=== PATIENT | female | born 1970 | race Caucasian/White ===

== ENCOUNTER → 2018-09-30 13:35 | Outpatient (CLI) | payer MEDICAID, SELFPAY ==
--- NOTE | 2018-09-30 13:42 | XR_ITS ---
XR elbow RT min 3V HISTORY: ITS.REASON: ELBOW PAIN ORDERING PHYSICIAN: Shayy Feliciano PATIENT AGE: 47 years COMPARISON: None FINDINGS: BONY STRUCTURES: No fracture or dislocation. No lytic or blastic change. Normal mineralization. SOFT TISSUES: Unremarkable. No radio opaque foreign bodies. No displaced fat pad. JOINT SPACE: Well-preserved. No significant arthritic changes evident. IMPRESSION: Negative elbow.
--- NOTE | 2018-09-30 13:42 | XR_ITS ---
EXAM: XR thoracic spine 3V HISTORY: ITS.REASON: MIDLINE THORACIC PAIN Comparison: None FINDINGS: There is mild degenerative disc disease in the mid and lower thoracic spine with endplate osteophytes no fracture or dislocation. No lytic or blastic change. IMPRESSION: Thoracic spondylosis with degenerative disc disease and osteophytosis
--- NOTE | 2018-09-30 13:42 | XR_ITS ---
EXAM: XR cervical spine 5V HISTORY: ITS.REASON: NECK PAIN ORDERING PHYSICIAN: Shayy Feliciano PATIENT AGE: 47 years COMPARISON: None FINDINGS: Normal alignment. No fracture or dislocation. No lytic or blastic change. No significant degenerative change. The disc spaces are preserved. IMPRESSION: No acute finding
[2018-09-30 14:31] LABS: Basophils % 0.3 % (0.1-2.0); Eosinophils # 0.3 K/mm3 (0.0-0.4); Eosinophils % 2.7 % (0.1-12.0); Hematocrit 38.7 % (37.0-47.0); Hemoglobin 11.6 g/dL (12.2-16.2); Lymphocytes # 2.2 K/mm3 (0.7-4.5); Lymphocytes % 23.6 % (10-50); Mean Corpuscular HGB Conc 29.9 g/dL (31.8-35.4); Mean Corpuscular Hemoglobin 27.4 pg (27.0-31.2); Mean Corpuscular Volume 91.5 fl (81-99); Mean Platelet Volume 7.2 fl (7.4-10.4); Monocytes # 0.5 K/mm3 (0.1-1.0); Monocytes % 5.3 % (1.7-9.3); Neutrophils # 6.4 K/mm3 (1.8-7.8); Neutrophils % 68.1 % (37.0-80.0); Platelet Count 319 K/mm3 (142-424); Red Blood Count 4.24 M/mm3 (4.20-5.40); Red Cell Distribution Width 15.1 % (11.5-17.5); White Blood Count 9.4 K/mm3 (4.8-10.8)
[2018-09-30 15:41] LABS: Erythrocyte Sedimentation Rate 60 mm/hr (0-20)
[2018-09-30 16:58] LABS: Alanine Aminotransferase 21 U/L (12-78); Albumin Level 3.2 gm/dL (3.4-5.0); Alkaline Phosphatase 85 U/L (46-116); Aspartate Amino Transferase 15 U/L (15-37); Bilirubin,Direct 0.1 mg/dL (0.0-0.2); Bilirubin,Indirect 0.1 mg/dL (0.0-0.9); Bilirubin,Total 0.2 mg/dL (0.2-1.0); Creatinine,Serum 0.58 mg/dL (0.55-1.02); Estimated Glomerular Filt Rate 111 ml/min (>60); GFR (African American) 134 ML/MIN (>60); Total Protein,Serum 6.9 gm/dL (6.4-8.2)
== END ==
PROVIDERS: Internal Medicine Rheumatology; PCP Family Medicine; Visit Provider Nurse Practitioner Family
DX: M54.2 Cervicalgia (principal); M54.6 Pain in thoracic spine; M25.521 Pain in right elbow; Z79.899 Other long term (current) drug therapy
CPT/HCPCS: 36415; 72050; 72072; 73080; 80076; 82565; 85025; 85651; 86140

== ENCOUNTER → 2018-10-16 14:43 | Outpatient (CLI) | payer MEDICAID, SELFPAY ==
--- NOTE | 2018-10-16 14:45 | MR_ITS ---
MR thoracic spine wo con HISTORY: A back pain when walking or standing. Relief when sitting. Symptoms XYRS. No trauma. ITS.REASON: ACUTE BILATERAL THORACIC BACK PAIN ORDERING PHYSICIAN: Shayy Feliciano PATIENT AGE: 47 years Comparison: X-RAY 09-30-18 TECHNIQUE: Standard multiplanar multiecho sequences are performed without contrast. 3-D MIP and myelographic images are also rendered and reviewed FINDINGS: Normal alignment. No fracture or dislocation is evident. No acute wedge compression fracture. There is mild multilevel degenerative disc disease from T4 to T12. Anterior osteophytes are present from T4 to T9. T6-T7: There is a small central disc protrusion/herniation very slightly eccentric toward the right causing mild compression upon the anterior right aspect of the spinal cord. There is degenerative disc disease at this level. T7-T8: There is a small central disc protrusion with degenerative disc disease. IMPRESSION: 1. Thoracic spondylosis with degenerative disc disease in the mid and lower thoracic spine 2. Small central disc protrusion slightly eccentric toward the right at T6-T7 causing mild anterior compression upon the cord. 3. Small central disc protrusion at T7-T8 with minimal anterior compression upon the cord
== END ==
PROVIDERS: PCP Nurse Practitioner Family; Visit Provider Nurse Practitioner Family
DX: M54.6 Pain in thoracic spine (principal); M05.79 Rheumatoid arthritis with rheumatoid factor of multiple sites without organ or systems involvement
CPT/HCPCS: 72146

== ENCOUNTER → 2018-12-10 11:31 | Outpatient (POV) | payer MEDICAID, SELFPAY ==
[2018-12-10 11:35] VITALS: BP 128/79; PULSE 88; RESP 18; O2SAT 98
--- NOTE | 2018-12-10 12:22 | HMH.PMCON ---
Assessment and Plan (1) Spinal stenosis, lumbar region with neurogenic claudication Current visit: Yes Status: Chronic Category: Medical Code(s): M48.062 - Spinal stenosis, lumbar region with neurogenic claudication (2) Back pain Current visit: Yes Status: Chronic Category: Medical Code(s): M54.9 - Dorsalgia, unspecified (3) Degenerative joint disease (DJD) of lumbar spine Current visit: Yes Status: Chronic Category: Medical Code(s): M47.816 - Spondylosis without myelopathy or radiculopathy, lumbar region - Assessment and plan all Dx Assessment and Plan for all problems:: We will schedule her for an L4-L5 lumbar epidural steroid injection. Patient and I also briefly discussed a vertical flex procedure. Patient continuing her home stretching regimen. Patient is on anti-inflammatories at this time. I will follow-up with her after injection and reassess her symptoms at that time. Dr. Jefferson has reviewed this note and agrees with this plan of care. This note was dictated using voice recognition software and may contain errors or omissions HPI - Data of Consult Consult date: 12/10/18 Requesting Physician: Mitali Nathan APRN Primary Care Provider: Shayy Feliciano APRN - Consult Narrative Reason for consult: Back pain, leg pain History of present illness: Ms. Saleh is a 48 year old female is in today for consultation in regards to her back pain and leg pain. Patient has been seen by neurosurgery and was deemed not a surgical candidate however she has a lot of back pain especially when she is standing and walking. Patient states that she has difficulty walking for long periods and has to sit down. Patient's MRI does show spinal stenosis along with degenerative disc disease and bulging disc. She denies numbness and tingling in her extremities. Patient has tried and failed [place], Cymbalta, Soma, clonazepam, Motrin, naproxen. Patient has done physical therapy with a report of minimal relief. Patient has not tried any injective therapy. She is not on any anticoagulation therapy. She is diabetic however she is not insulin dependent CC: Mitali Nathan APRN [facility] History I have reviewed the patient's past medical history: Yes Medical History: Reports:: Diabetes Mellitus Type 2, Hypertension Other Surgeries: Yes: Cholecystectomy, - *Social History Smoking Status: Never smoker Alcohol Intake: never Occupational Status: other Housing: house Household Members: spouse Travel in the last 8 weeks: None - Psychiatric History Expresses thoughts of harming self/others: None Suicide Plan Description: No Plan *Family Hx:: Unable to obtain Review of Systems - Review of Systems ROS General: no recent weight change, no fever, no sleep disturbances Respiratory: no cough, no shortness of air, no recurring pulmonary infections Cardiovascular/Peripheral Vascular: No chest pain, No palpitations, no edema, no shortness of breath. Gastrointestinal: no incontinence, normal bowel movements reported Genitourinary: no incontinence Musculoskeletal: Back pain, leg pain Psychiatric: normal mood/ affect Neurological: [denies weakness in extremities], [denies balance issues] Meds Home Medications Medication Instructions Recorded Confirmed Type Gabapentin [Gabapentin 300mg Cap] 200 mg PO QID 12/10/18 12/10/18 History Hydrocod/Acet 5/325 mg [[place] 1 each PO Q6 12/10/18 12/10/18 History 5/325mg tablet] Loratadine [Claritin 10mg Tablet] 10 mg PO DAILY 12/10/18 12/10/18 History Metformin HCl 500 mg PO BID 12/10/18 12/10/18 History Naproxen Sodium 220 mg PO DAILY 12/10/18 12/10/18 History Omeprazole [Omeprazole 20mg 40 mg PO HS 12/10/18 12/10/18 History Capsule] Ropinirole HCl 1 mg PO HS 12/10/18 12/10/18 History Allergies Allergy/AdvReac Type Severity Reaction Status Date / Time From [facility] (FOOD/DRUG) Allergy Unknown ABD Uncoded 11/06/17 14:53 CRAMPS/VOMI
--- NOTE | 2018-12-10 12:25 | P.CONS_ITS ---
Assessment and Plan (1) Spinal stenosis, lumbar region with neurogenic claudication Current visit: Yes Status: Chronic Category: Medical Code(s): M48.062 - Spinal stenosis, lumbar region with neurogenic claudication (2) Back pain Current visit: Yes Status: Chronic Category: Medical Code(s): M54.9 - Dorsalgia, unspecified (3) Degenerative joint disease (DJD) of lumbar spine Current visit: Yes Status: Chronic Category: Medical Code(s): M47.816 - Spondylosis without myelopathy or radiculopathy, lumbar region - Assessment and plan all Dx Assessment and Plan for all problems:: We will schedule her for an L4-L5 lumbar epidural steroid injection. Patient and I also briefly discussed a vertical flex procedure. Patient continuing her home stretching regimen. Patient is on anti-inflammatories at this time. I will follow-up with her after injection and reassess her symptoms at that time. Dr. Jefferson has reviewed this note and agrees with this plan of care. This note was dictated using voice recognition software and may contain errors or omissions HPI - Data of Consult Consult date: 12/10/18 Requesting Physician: Mitali Nathan APRN Primary Care Provider: Shayy Feliciano APRN - Consult Narrative Reason for consult: Back pain, leg pain History of present illness: Ms. Saleh is a 48 year old female is in today for consultation in regards to her back pain and leg pain. Patient has been seen by neurosurgery and was deemed not a surgical candidate however she has a lot of back pain especially when she is standing and walking. Patient states that she has difficulty walking for long periods and has to sit down. Patient's MRI does show spinal stenosis along with degenerative disc disease and bulging disc. She denies numbness and tingling in her extremities. Patient has tried and failed [place], Cymbalta, Soma, clonazepam, Motrin, naproxen. Patient has done physical therapy with a report of minimal relief. Patient has not tried any injective therapy. She is not on any anticoagulation therapy. She is diabetic however she is not insulin dependent CC: Mitali Nathan APRN [facility] History I have reviewed the patient's past medical history: Yes Medical History: Reports:: Diabetes Mellitus Type 2, Hypertension Other Surgeries: Yes: Cholecystectomy, - *Social History Smoking Status: Never smoker Alcohol Intake: never Occupational Status: other Housing: house Household Members: spouse Travel in the last 8 weeks: None - Psychiatric History Expresses thoughts of harming self/others: None Suicide Plan Description: No Plan *Family Hx:: Unable to obtain Review of Systems - Review of Systems ROS General: no recent weight change, no fever, no sleep disturbances Respiratory: no cough, no shortness of air, no recurring pulmonary infections Cardiovascular/Peripheral Vascular: No chest pain, No palpitations, no edema, no shortness of breath. Gastrointestinal: no incontinence, normal bowel movements reported Genitourinary: no incontinence Musculoskeletal: Back pain, leg pain Psychiatric: normal mood/ affect Neurological: [denies weakness in extremities], [denies balance issues] Meds Home Medications Medication Instructions Recorded Confirmed Type Gabapentin [Gabapentin 300mg Cap] 200 mg PO QID 12/10/18 12/10/18 History Hydrocod/Acet 5/325 mg [[place] 1 each PO Q6 12/10/18 12/10/18 History 5/325mg tablet] Loratadine [
== END ==
PROVIDERS: PCP Nurse Practitioner Family; Visit Provider Clinical Nurse Specialist Family Health
DX: M48.062 Spinal stenosis, lumbar region with neurogenic claudication (principal); M47.816 Spondylosis without myelopathy or radiculopathy, lumbar region
CPT/HCPCS: 99202

== ENCOUNTER 2018-12-24 19:57 | Observation (INO) ==
[2018-12-24 20:14] LABS: Basophils # 0.1 K/mm3 (0-0.2); Basophils % 0.3 % (0.1-2.0); Eosinophils # 0.2 K/mm3 (0.0-0.4); Eosinophils % 1.5 % (0.1-12.0); Hematocrit 45.5 % (37.0-47.0); Hemoglobin 13.8 g/dL (12.2-16.2); Lymphocytes # 2.5 K/mm3 (0.7-4.5); Lymphocytes % 16.1 % (10-50); Mean Corpuscular HGB Conc 30.4 g/dL (31.8-35.4); Mean Corpuscular Hemoglobin 27.7 pg (27.0-31.2); Mean Platelet Volume 7.1 fl (7.4-10.4); Monocytes # 0.8 K/mm3 (0.1-1.0); Monocytes % 4.9 % (1.7-9.3); Neutrophils # 11.7 K/mm3 (1.8-7.8); Neutrophils % 77.1 % (37.0-80.0); Platelet Count 358 K/mm3 (142-424); Red Blood Count 4.99 M/mm3 (4.20-5.40); Red Cell Distribution Width 14.5 % (11.5-17.5); White Blood Count 15.2 K/mm3 (4.8-10.8)
[2018-12-24 20:35] LABS: Blood Urea Nitrogen 17 mg/dL (7-18); Calcium 9.3 mg/dL (8.5-10.1); Carbon Dioxide 31 mmol/L (21.0-32.0); Chloride 100 mmol/L (98-107); Glucose 124 mg/dL (74-106); Sodium 139 mmol/L (136-145)
[2018-12-24 21:06] LABS: Eosinophils % 1 % (0-3); Lymphocytes % 13 % (10-50); Monocytes % 2 % (2-9); Neutrophils % 83 % (42-76); Total Cells Counted 100
[2018-12-24 21:07] LABS: Anisocytosis 1+
--- NOTE | 2018-12-24 23:03 | Emergency Department Note ---
ED Disposition Clinical Impression: Tobacco use Chest pain Qualifiers: Chest pain type: precordial pain Qualified Code(s): R07.2 - Precordial pain Obesity Qualifiers: Obesity type: due to excess calories Obesity classification: adult class 3 (BMI >= 40) Serious obesity comorbidity presence: with serious comorbidity Body mass index: BMI 50.0-59.9 Qualified Code(s): E66.01 - Morbid (severe) obesity due to excess calories; Z68.43 - Body mass index (BMI) 50-59.9, adult Diabetes Qualifiers: Diabetes mellitus type: type 2 Diabetes mellitus fdc insulin use: without bed bug exterminator use Diabetes mellitus complication status: with unspecified complications Qualified Code(s): E11.8 - Type 2 diabetes mellitus with unspecified complications Disposition: Admitted as Observation Condition on Discharge: Serious Referrals: Shayy Feliciano APRN [Primary Care Provider] - - Critical Care Critical Care Time: No Attestation: On 12/24/18, the high probability of a clinically significant, sudden or life threatening deterioration of the following system(s) required my full and direct attention, intervention and personal management. The time I documented below is in addition to time spent performing reported procedures but includes the following listed in this critical care notation. Medical Decision Making - Medical Records Medical records reviewed: Yes: I reviewed the patient's medical records. - Varun Inquiry Pt receiving controlled substance: No Vital Signs: 12/24/18 19:57 12/24/18 20:25 Temperature 98.2 F Temperature Source Oral Pulse Rate [Right Brachial] 97 H 98 H Respiratory Rate 18 18 Blood Pressure [Right Arm] 156/87 H 140/83 Blood Pressure Mean [Right Arm] 110 102 Blood Pressure Source [Right Arm] Automatic Cuff Automatic Cuff Blood Pressure Position [Right Arm] Sitting Sitting 02 Sat by Pulse Oximetry 97 97 Oxygen Delivery Method Room Air Room Air - Lab Data Lab results reviewed: Yes: I reviewed the patient's lab results. Lab Results 12/24/18 20:00: WBC 15.2 H, RBC 4.99, Hgb 13.8, Hct 45.5, MCV 91.0, MCH 27.7, MCHC 30.4 L, RDW 14.5, Plt Count 358, MPV 7.1 L, Neut % (Auto) 77.1, Lymph % (Auto) 16.1, Lane % (Auto) 4.9, Eos % (Auto) 1.5, Baso % (Auto) 0.3, Neut # (Auto) 11.7 H, Lymph # (Auto) 2.5, Lane # (Auto) 0.8, Eos # (Auto) 0.2, Baso # (Auto) 0.1, Total Counted 100, Neutrophils % (Manual) 83 H, Lymphocytes % (Manual) 13, Monocytes % (Manual) 2, Eosinophils % (Manual) 1, Basophils % (Manual) 1.0, Platelet Estimate Normal, Anisocytosis 1+ 12/24/18 20:00: Sodium 139, Potassium 4.0, Chloride 100, Carbon Dioxide 31, Anion Gap 12.0, BUN 17, Creatinine 0.74, Estimated Creat Clear 73, Estimated GFR 83, Est GFR ( Amer) 101, Glucose 124 H, Calcium 9.3, Troponin I < 0.02 Result diagrams: 12/24/18 20:00 12/24/18 20:00 - Radiology Data #1 Image(s): Chest Image Reviewed: Yes I reviewed the patient's radiology image Preliminary Findings: Normal/NAD - ECG Data Tracing #1 Normal Sinus Rhythm: Yes Ischemic changes: non-specific ST-T wave changes - Physician Consults Physician Consulted: diana Reason -: Admission Chest Pain HPI - General Chief Complaint: Chest Pain Stated Complaint: chest pain Time Seen by Provider: 12/24/18 22:59 Mode of Arrival: Ambulatory Source of Information: Patient, Spouse, Medical Record Limitations: No Limitations Description of Symptoms (Recalled from ER Triage Doc. by RN): chest pain intermittently. shortness of air - History of Present Illness HPI narrative: wf who had episode of chest pain 2 days ago - lasted 5 min and then had several episodes which were sharp and pressure like today - pt with tob use and diabetes MD complaint: chest pain indicative of cardiac Onset (ago): day(s) Duration: now resolved Activity at onset: during rest Pain location: substernal Severity: moderate Risk Factors for CAD: Hypercholesterolemia, Family Hx of CAD, Diabetes, Smoking Treatments prior to or on arrival for Cardiac Chest Pain: none - RUDI Score for Non-Stemi Age of Patient: 40-49 years old Heart Rate: 90-109 bpm Systolic Blood Pressure: 140-159 mmHg Serum Creatinine: 0.40-0.79 mg/dl CHF [place] Class: I-No CHF Other Risk Factors: None Non-Stemi Risk Score: 68 - Related Data On Oral Contraceptives: No Home Medications Medication Instructions Recorded Confirmed Gabapentin [Gabapentin 300mg Cap] 200 mg PO QID 12/10/18 12/10/18 Hydrocod/Acet 5/325 mg [[place] 1 each PO Q6 12/10/18 12/10/18 5/325mg tablet] Loratadine [Claritin 10mg Tablet] 10 mg PO DAILY 12/10/18 12/10/18 Metformin HCl 500 mg PO BID 12/10/18 12/10/18 Naproxen Sodium 220 mg PO DAILY 12/10/18 12/10/18 Omeprazole [Omeprazole 20mg 40 mg PO HS 12/10/18 12/10/18 Capsule] Ropinirole HCl 1 mg PO HS 12/10/18 12/10/18 Duloxetine HCl [Cymbalta] 60 mg PO BID 12/20/18 12/20/18 Enalapril Maleate 20 mg PO DAILY 12/20/18 12/20/18 Allergies Allergy/AdvReac Type Severity Reaction Status Date / Time From [facility] (FOOD/DRUG) Allergy Unknown ABD Uncoded 11/06/17 14:53 CRAMPS/VOMITING From [facility] (FOOD/DRUG) Allergy Unknown ABD Uncoded 11/06/17 14:53 CRAMPS/VOMITING H History - Hepatitis A Screen Drug use history?: No High risk sexual behaviors?: No History of sexually transmitted infection?: No Currently employed?: No Childcare worker?: No Do you have indoor plumbing?: Yes Do you have electricity?: Yes Attestation statement:: This patient has been screened for Hepatitis A risk factors. I have reviewed the patient's past medical history: Yes Medical History: Reports:: Diabetes Mellitus Type 2, Hypertension Other Surgeries: Yes: Cholecystectomy, - Social History Educational Level: Completed High School Smoking Status: Current every day smoker Tobacco Type: cigarettes Alcohol Intake: never Occupational Status: other Housing: house Household Members: spouse - Psychiatric History Expresses thoughts of harming self/others: None Suicide Plan Description: No Plan Family Hx:: Unable to obtain ROS Obtained: Yes All systems reviewed & no additional complaints - Constitutional Constitutional: Denies fever(s) - Eyes Eyes: Denies change in vision - ENT Ears, Nose, Mouth, and Throat: Denies sore throat - Cardiovascular Cardiovascular: Reports chest pain, Reports chest pain at rest, Denies radiating jaw, neck or arm pain - Respiratory Respiratory: No cough - Gastrointestinal Gastrointestingal: Denies: abdominal pain - Genitourinary Female Genitourinary: Denies flank pain, Denies pelvic pain - Musculoskeletal Musculoskeletal: Denies neck pain - Integumentary/Breasts Skin/Breast: Denies rash - Neurologic Neurologic: Denies headache(s), Denies seizure-like activity Physical Exam - General General appearance: alert, obese - Head Head exam: normocephalic - Eye Eye exam: Present: PERRL, EOMI. Absent: scleral icterus - ENT ENT exam: Present: mucous membranes dry - Neck Neck exam: Present: trachea midline - Respiratory Respiratory exam: Absent: respiratory distress - Cardiovascular Cardiovascular exam: Present: regular rate, systolic murmur. Absent: rubs, gallop, clicks - Abdominal Exam Abdominal exam: Present: soft - Extremities Exam Extremities exam: Present: full ROM - Neurological Exam Neurological exam: Present: alert, oriented X3, CN II-XII intact - Psychiatric Psychiatric exam: Present: normal affect - Skin Skin exam: Absent: rash
[2018-12-25 05:08] LABS: Basophils % 0.1 % (0.1-2.0); Eosinophils # 0.1 K/mm3 (0.0-0.4); Eosinophils % 0.9 % (0.1-12.0); Hematocrit 38.4 % (37.0-47.0); Lymphocytes # 2.6 K/mm3 (0.7-4.5); Lymphocytes % 17.4 % (10-50); Mean Corpuscular HGB Conc 30.8 g/dL (31.8-35.4); Mean Corpuscular Hemoglobin 28.2 pg (27.0-31.2); Mean Corpuscular Volume 91.6 fl (81-99); Mean Platelet Volume 8.3 fl (7.4-10.4); Monocytes # 0.6 K/mm3 (0.1-1.0); Monocytes % 4.3 % (1.7-9.3); Neutrophils # 11.4 K/mm3 (1.8-7.8); Neutrophils % 77.2 % (37.0-80.0); Platelet Count 309 K/mm3 (142-424); Red Blood Count 4.19 M/mm3 (4.20-5.40); Red Cell Distribution Width 14.6 % (11.5-17.5); White Blood Count 14.7 K/mm3 (4.8-10.8)
[2018-12-25 05:15] LABS: Anion Gap 12.7 mEq/L (5-15); Calcium 8.5 mg/dL (8.5-10.1); Chol/HDL Ratio 3.2 (1-3.5); Potassium 3.7 mmoL/L (3.5-5.1)
[2018-12-25 05:30] LABS: Hemoglobin 11.9 g/dL (12.2-16.2)
--- NOTE | 2018-12-25 07:21 | History & Physical Report ---
*Admission Date: 12/25/18 *Chief complaint: Chest pain *History of present illness: 48 female with diabetes and [id number] history of smoking per to the emergency department with episodes of a dull chest pain retrosternally with slight radiation to the left and into the back lasting 1 minute that have been present for the last 2 weeks. Episodes generally will occur at rest. She will have associated nausea and shortness of breath. She denies diaphoresis. Patient has not had any other cardiac workup patient is morbidly obese and claims a history of rheumatoid arthritis [facility] History I have reviewed the patient's past medical history: Yes Medical History: Reports:: Diabetes Mellitus Type 2 Denies:: Cancer, MRSA Have you ever received a pneumonia vaccine?: No Have you received a flu vaccine this season?: No Other Medical History: Reports: Anemia, Arthritis Comment:: Morbid obesity, cigarette smoker Other Surgeries: Yes: Cholecystectomy, , EGD, Other (Csection) Amputation: No Fractures: No - *Social History Educational Level: Attended College Smoking Status: Current every day smoker Tobacco Type: cigarettes # Packs/Day (cigarettes): 1 #Yrs smoked (if former smoker): 30 Alcohol Intake: never Occupational Status: other Housing: house Household Members: spouse Travel in the last 8 weeks: None - Psychiatric History Expresses thoughts of harming self/others: None Suicide Plan Description: No Plan *Family Hx:: Unable to obtain, Anemia, Asthma, Bleeding Disorder, Cancer, Coronary Artery Disease, Hyperlipidemia, Hypertension, Kidney Disease, Thyroid Disorder Review of Systems - Review of Systems Review of systems:: pertinent systems reviewed and negative unless documented below - Constitutional Denies body ache(s), Denies chills, Denies fever(s) - *Cardiovascular Reports chest pain, Reports chest pain at rest, Reports shortness of breath, Denies irregular heart rhythm - *Respiratory Denies change in phlegm color, Denies chest congestion, Denies cough - *Gastrointestinal Denies abdominal pain, Denies belching, Denies bloating - *Neurologic Denies headache(s), Denies seizure-like activity Meds Home Medications Medication Instructions Recorded Confirmed Type Gabapentin [Gabapentin 300mg Cap] 200 mg PO HS 12/10/18 12/25/18 History Hydrocod/Acet 5/325 mg [[place] 1 each PO Q6 12/10/18 12/25/18 History 5/325mg tablet] Loratadine [Claritin 10mg Tablet] 10 mg PO DAILY 12/10/18 12/25/18 History Metformin HCl 500 mg PO BID 12/10/18 12/25/18 History Naproxen Sodium 220 mg PO DAILY PRN 12/10/18 12/25/18 History Omeprazole [Omeprazole 20mg 20 mg PO DAILY 12/10/18 12/25/18 History Capsule] Ropinirole HCl 1 mg PO BID 12/10/18 12/25/18 History Duloxetine HCl [Cymbalta] 60 mg PO BID 12/20/18 12/25/18 History Enalapril/Hydrochlorothiazide 10 - 25 mg PO DAILY 12/25/18 12/25/18 History [Enalapril-Hctz 10-25 mg Tablet] Tofacitinib Citrate [Xeljanz] 100 mg PO DAILY 12/25/18 12/25/18 History Allergies Allergy/AdvReac Type Severity Reaction Status Date / Time From [facility] (FOOD/DRUG) Allergy Unknown ABD Uncoded 11/06/17 14:53 CRAMPS/VOMITING From [facility] (FOOD/DRUG) Allergy Unknown ABD Uncoded 11/06/17 14:53 CRAMPS/VOMITING Exam Vital signs and Labs for Last 24 Hours: Temp Pulse Resp BP Pulse Ox 98.0 F 87 16 166/89 H 92 L 12/25/18 04:12 12/25/18 04:12 12/25/18 04:12 12/25/18 04:12 12/25/18 04:12 Laboratory Results - last 24 hr 12/24/18 20:00: WBC 15.2 H, RBC 4.99, Hgb 13.8, Hct 45.5, MCV 91.0, MCH 27.7, MCHC 30.4 L, RDW 14.5, Plt Count 358, MPV 7.1 L, Neut % (Auto) 77.1, Lymph % (Auto) 16.1, [place] % (Auto) 4.9, Eos % (Auto) 1.5, Baso % (Auto) 0.3, Neut # (Auto) 11.7 H, Lymph # (Auto) 2.5, [place] # (Auto) 0.8, Eos # (Auto) 0.2, Baso # (Auto) 0.1, Total Counted 100, Neutrophils % (Manual) 83 H, Lymphocytes % (Manual) 13, Monocytes % (Manual) 2, Eosinophils % (Manual) 1, Basophils % (Manual) 1.0, Platelet Estimate Normal, Anisocytosis 1+ 12/24/18 20:00: Sodium 139, Potassium 4.0, Chloride 100, Carbon Dioxide 31, Anion Gap 12.0, BUN 17, Creatinine 0.74, Estimated Creat Clear 73, Estimated GFR 83, Est GFR ( Amer) 101, Glucose 124 H, Calcium 9.3, Troponin I < 0.02 12/25/18 01:55: Troponin I < 0.02 12/25/18 04:50: Troponin I < 0.02 12/25/18 04:50: WBC 14.7 H, RBC 4.19 L, Hgb 11.9 L D, Hct 38.4, MCV 91.6, MCH 28.2, MCHC 30.8 L, RDW 14.6, Plt Count 309, MPV 8.3, Neut % (Auto) 77.2, Lymph % (Auto) 17.4, [place] % (Auto) 4.3, Eos % (Auto) 0.9, Baso % (Auto) 0.1, Neut # (Auto) 11.4 H, Lymph # (Auto) 2.6, [place] # (Auto) 0.6, Eos # (Auto) 0.1, Baso # (Auto) 0.0 12/25/18 04:50: Sodium 139, Potassium 3.7, Chloride 102, Carbon Dioxide 28, Anion Gap 12.7, BUN 15, Creatinine 0.58 D, Estimated Creat Clear 93, Estimated GFR 110, Est GFR ( Amer) 134 D, Glucose 166 H D, Calcium 8.5, Magnesium 1.8, Triglycerides 76, Cholesterol 133 L, LDL Cholesterol 76, VLDL Cholesterol 15, HDL Cholesterol 42, Cholesterol/HDL Ratio 3.2 12/25/18 05:51: POC Glucose 126 H I & O for Last 24 hours: Intake & Output 12/22/18 12/23/18 12/24/18 12/25/18 11:59 11:59 11:59 11:59 Intake Total 198 / 198 Balance 198 / 198 Weight 299 lb Narrative: Patient is awake and alert and does not appear to be in any ENT exam is grossly normal. Neck has no carotid bruits. Lungs are clear to auscultation. Heart has a regular rhythm. Abdomen is obese, soft, nontender, nondistended. Patient has active range of motion in all extremities. Neurologically there is no deficit Assessment and Plan (1) Chest pain Current visit: Yes Status: Acute Qualifiers: Chest pain type: precordial pain Qualified Code(s): R07.2 - Precordial pain Category: Medical Code(s): R07.9 - Chest pain, unspecified Echocardiogram and Lexiscan stress test morning. (2) Rheumatoid arthritis Current visit: Yes Status: Acute Category: Medical Code(s): M06.9 - Rheumatoid arthritis, unspecified (3) Diabetes Current visit: Yes Status: Acute Qualifiers: Diabetes mellitus type: type 2 Diabetes mellitus food service substitute insulin use: without food service substitute use Diabetes mellitus complication status: with unspecified complications Qualified Code(s): E11.8 - Type 2 diabetes mellitus with unspecified complications Category: Medical Code(s): E11.9 - Type 2 diabetes mellitus without complications (4) Obesity Current visit: Yes Status: Acute Qualifiers: Obesity type: due to excess calories Obesity classification: adult class 3 (BMI >= 40) Serious obesity comorbidity presence: with serious comorbidity Body mass index: BMI 50.0-59.9 Qualified Code(s): E66.01 - Morbid (severe) obesity due to excess calories; Z68.43 - Body mass index (BMI) 50-59.9, adult Category: Medical Code(s): E66.9 - Obesity, unspecified (5) Tobacco use Current visit: Yes Status: Acute Category: Medical Code(s): Z72.0 - Tobacco use
--- NOTE | 2018-12-25 13:57 | Pharmacy Consult Notes ---
[facility] Pharmacy VTE Monitoring - Patient Demographics Admission date: 12/25/18 Report Date: 12/25/18 Time: 13:57 Allergies/Adverse Reactions: Patient Allergies From BANANAS (FOOD/DRUG) Allergy (Unknown, Uncoded 11/06/17 14:53) ABD CRAMPS/VOMITING From EGGS (FOOD/DRUG) Allergy (Unknown, Uncoded 11/06/17 14:53) ABD CRAMPS/VOMITING Height: 1.57 cm Weight: 135.624 kg Patient Problems: Current Active Problems Chest pain (Acute) Tobacco use (Acute) Obesity (Acute) Diabetes (Acute) Rheumatoid arthritis (Acute) - VTE Risk Labs: VTE Related Lab Results Hgb 11.9 g/dL (12.2-16.2) L D 12/25/18 04:50 Hct 38.4 % (37.0-47.0) 12/25/18 04:50 Plt Count 309 K/mm3 (142-424) 12/25/18 04:50 BUN 15 mg/dL (7-18) 12/25/18 04:50 Creatinine 0.58 mg/dL (0.55-1.02) D 12/25/18 04:50 Estimated Creat Clear 93 mL/min (50-200) 12/25/18 04:50 Was VTE Risk Assessment Performed: Yes VTE Risk Level: Low Risk Clinical Trial Participant: No - Prophylaxis VTE Prophylaxis Ordered?: Yes Types of VTE Prophylaxis: TEDS Knee High
--- NOTE | 2018-12-25 16:07 | Discharge Summary ---
General - General Admission date:: 12/25/18 Discharge date: 12/25/18 HPI HPI: 48 female with diabetes and [id number] history of smoking per to the emergency department with episodes of a dull chest pain retrosternally with slight radiation to the left and into the back lasting 1 minute that have been present for the last 2 weeks. Episodes generally will occur at rest. She will have associated nausea and shortness of breath. She denies diaphoresis. Patient has not had any other cardiac workup patient is morbidly obese and claims a history of rheumatoid arthritis Hospital Course Hospital Course: Patient admitted for observation and further evaluation. Serial troponins were negative. Lexiscan stress test was performed today and was also with an EF of 62%, small fixed defect in the inferolateral apical region suggesting a small area of infarction, and small area of decreased activity in the anterolateral region which improves on the delayed images and may be due to a small area of ischemia. Patient is not currently experiencing chest pain, pressure, numbness/tingling in left arm or SOB. Last episode around 11am. She smokes 1PPD and verbalizes no desire to quit right now. Objective Vital signs: Temp Pulse Resp BP Pulse Ox 97.7 F 90 18 161/77 H 95 12/25/18 11:38 12/25/18 11:38 12/25/18 11:38 12/25/18 11:38 12/25/18 11:38 no acute distress, morbidly obese - *Routine Respiratory Exam Present: CTA bilaterally. Absent: accessory muscle use - *Routine Cardiovascular Exam Present: RRR, Normal S1, Normal S2. Absent: tachycardia, irregular rhythm - *Routine Abdominal Exam Present: soft, normoactive bowel sounds. Absent: tenderness, distended - *Routine Extremities Exam Absent: cyanosis, edema - *Routine Skin Exam Present: intact. Absent: cyanosis, pallor - *Routine Neurological Exam Present: alert, oriented X3 - Routine Psychiatric Exam Present: normal affect Results Labs on day of discharge: Labs from last 24 hours 12/25/18 12/25/18 12/25/18 11:31 05:51 04:50 WBC RBC Hgb Hct MCV MCH MCHC RDW Plt Count MPV Neut % (Auto) Lymph % (Auto) Republic % (Auto) Eos % (Auto) Baso % (Auto) Neut # (Auto) Lymph # (Auto) Republic # (Auto) Eos # (Auto) Baso # (Auto) Total Counted Neutrophils % (Manual) Lymphocytes % (Manual) Monocytes % (Manual) Eosinophils % (Manual) Basophils % (Manual) Platelet Estimate Anisocytosis Sodium 139 Potassium 3.7 Chloride 102 Carbon Dioxide 28 Anion Gap 12.7 BUN 15 Creatinine 0.58 D Estimated Creat Clear 93 Estimated GFR 110 Est GFR ( Amer) 134 D Glucose 166 H D POC Glucose 190 H 126 H Calcium 8.5 Magnesium 1.8 Troponin I Triglycerides 76 Cholesterol 133 L LDL Cholesterol 76 VLDL Cholesterol 15 HDL Cholesterol 42 Cholesterol/HDL Ratio 3.2 12/25/18 12/25/18 12/25/18 04:50 04:50 01:55 WBC 14.7 H RBC 4.19 L Hgb 11.9 L D Hct 38.4 MCV 91.6 MCH 28.2 MCHC 30.8 L RDW 14.6 Plt Count 309 MPV 8.3 Neut % (Auto) 77.2 Lymph % (Auto) 17.4 Republic % (Auto) 4.3 Eos % (Auto) 0.9 Baso % (Auto) 0.1 Neut # (Auto) 11.4 H Lymph # (Auto) 2.6 Republic # (Auto) 0.6 Eos # (Auto) 0.1 Baso # (Auto) 0.0 Total Counted Neutrophils % (Manual) Lymphocytes % (Manual) Monocytes % (Manual) Eosinophils % (Manual) Basophils % (Manual) Platelet Estimate Anisocytosis Sodium Potassium Chloride Carbon Dioxide Anion Gap BUN Creatinine Estimated Creat Clear Estimated GFR Est GFR ( Amer) Glucose POC Glucose Calcium Magnesium Troponin I < 0.02 < 0.02 Triglycerides Cholesterol LDL Cholesterol VLDL Cholesterol HDL Cholesterol Cholesterol/HDL Ratio 12/24/18 12/24/18 20:00 20:00 WBC 15.2 H RBC 4.99 Hgb 13.8 Hct 45.5 MCV 91.0 MCH 27.7 MCHC 30.4 L RDW 14.5 Plt Count 358 MPV 7.1 L Neut % (Auto) 77.1 Lymph % (Auto) 16.1 Republic % (Auto) 4.9 Eos % (Auto) 1.5 Baso % (Auto) 0.3 Neut # (Auto) 11.7 H Lymph # (Auto) 2.5 Republic # (Auto) 0.8 Eos # (Auto) 0.2 Baso # (Auto) 0.1 Total Counted 100 Neutrophils % (Manual) 83 H Lymphocytes % (Manual) 13 Monocytes % (Manual) 2 Eosinophils % (Manual) 1 Basophils % (Manual) 1.0 Platelet Estimate Normal Anisocytosis 1+ Sodium 139 Potassium 4.0 Chloride 100 Carbon Dioxide 31 Anion Gap 12.0 BUN 17 Creatinine 0.74 Estimated Creat Clear 73 Estimated GFR 83 Est GFR ( Amer) 101 Glucose 124 H POC Glucose Calcium 9.3 Magnesium Troponin I < 0.02 Triglycerides Cholesterol LDL Cholesterol VLDL Cholesterol HDL Cholesterol Cholesterol/HDL Ratio DS: Diagnosis - Discharge Diagnosis (1) Chest pain Status: Acute (2) Rheumatoid arthritis Status: Acute (3) Diabetes Status: Acute (4) Obesity Status: Acute (5) Tobacco use Status: Acute Discharge Plan - Patient Discharge Instructions ACTIVITY: Continue current activity DIET: cardiac Patient Instructions: DI for Chest Pain - Follow up Plan Follow up with: Jennifer Escobar APRN [Nurse Practitioner] - 12/27/18 9:30 am Disposition: Home, Self-Alf Medications: Home Medications Medication Instructions Recorded Confirmed Type Gabapentin [Gabapentin 300mg Cap] 200 mg PO HS 12/10/18 12/25/18 History Hydrocod/Acet 5/325 mg [[place] 1 each PO Q6HP PRN 12/10/18 12/25/18 History 5/325mg tablet] Loratadine [Claritin 10mg Tablet] 10 mg PO DAILY 12/10/18 12/25/18 History Metformin HCl 500 mg PO BID 12/10/18 12/25/18 History Naproxen Sodium 220 mg PO DAILY PRN 12/10/18 12/25/18 History Omeprazole [Omeprazole 20mg 20 mg PO DAILY 12/10/18 12/25/18 History Capsule] Ropinirole HCl 1 mg PO BID 12/10/18 12/25/18 History Duloxetine HCl [Cymbalta] 60 mg PO BID 12/20/18 12/25/18 History Aspirin [Aspirin 81mg EC Tab] 81 mg PO DAILY #30 tablet. 12/25/18 Rx Bisoprolol Fumarate [Bisoprolol 5 mg PO DAILY #30 tab 12/25/18 Rx 5mg Tablet] Clopidogrel Bisulfate [Plavix 75mg 75 mg PO DAILY #30 tab 12/25/18 Rx Tab] Enalapril/Hydrochlorothiazide 1 tab PO DAILY 12/25/18 12/25/18 History [Enalapril-Hctz 10-25 mg Tablet] Folic Acid [Folic Acid 1mg tablet] 1 mg PO BID 12/25/18 12/25/18 History metHOTREXate sodium [metHOTREXate 10 mg PO WEEKLY 12/25/18 12/25/18 History 2.5mg Tablet] Prescriptions/Medication Reconciliation: New Aspirin [Aspirin 81mg EC Tab] 81 mg PO DAILY #30 tablet. Bisoprolol Fumarate [Bisoprolol 5mg Tablet] 5 mg PO DAILY #30 tab Clopidogrel Bisulfate [Plavix 75mg Tab] 75 mg PO DAILY #30 tab Continue Ropinirole HCl 1 mg PO BID Naproxen Sodium 220 mg PO DAILY PRN PRN Reason: Inflammation Metformin HCl 500 mg PO BID Loratadine [Claritin 10mg Tablet] 10 mg PO DAILY Hydrocod/Acet 5/325 mg [[place] 5/325mg tablet] 1 each PO Q6HP PRN PRN Reason: pain Gabapentin [Gabapentin 300mg Cap] 200 mg PO HS metHOTREXate sodium [metHOTREXate 2.5mg Tablet] 10 mg PO WEEKLY Folic Acid [Folic Acid 1mg tablet] 1 mg PO BID Omeprazole [Omeprazole 20mg Capsule] 20 mg PO DAILY Duloxetine HCl [Cymbalta] 60 mg PO BID Enalapril/Hydrochlorothiazide [Enalapril-Hctz 10-25 mg Tablet] 1 tab PO DAILY
--- NOTE | 2018-12-26 11:41 | Cardiology Report ---
PROCEDURE: 2-D M-mode and color Doppler study INDICATIONS FOR THE TEST: Chest pain X COPD Heart Murmur Tobacco SmokingX Palpitations Fatigue Syncope Edema HypertensionXDiabetes MellitusX Rheumatic Fever SOBXDOE ObesityXHyperlipidemia Family History HD Additional History PATIENT INFORMATION HEIGHT: 62 WEIGHT:300 GENDER: Female B/P:156/87 2-D/M-MODE INTERPRETATION: 2-D MEASUREMENTS OBSERVED VALUES IN CMS Right Ventricular Dimension (RVDd) 3.1 Interventricular Septum (Thickness)(IVsd) .9 Left Ventricular Internal Dimensions(LVIDd) 5.1 Left Ventricular Posterior Wall (Thickness)(LVPWd) 1.0 Aortic Root 3.0 Aortic Cusp Separation 1.8 Left Atrial Dimensions (LAD) 3.2 2D 1. Left atrium is qualitatively mildly enlarged, left ventricle is normal size, mild concentric left ventricular hypertrophy, visually estimated ejection fraction 55% with no regional wall motion abnormality. 2. The right atrium and right ventricle are mildly enlarged with normal contractility. 3. The aortic valve is minimally thickened and fibrosed. 4. The mitral and tricuspid valve are grossly normal. 5. The pulmonic valve is poorly visualized. 6. No significant pericardial effusion noted. DOPPLER INTERROGATION: Doppler interrogation of the aortic, mitral and tricuspid valvular presence of mild mitral and tricuspid regurgitation, tricuspid regurgitation jet velocity is inadequate for calculation of the right ventricular systolic pressure, grade 1 diastolic dysfunction seen with tissue Doppler evidence of raised left atrial pressure. CONCLUSION: 1. Mildly enlarged left atrium, normal left ventricular size, mild concentric left ventricular hypertrophy, visually estimated ejection fraction 55% with no regional wall motion abnormality, grade 1 diastolic dysfunction seen with tissue Doppler evidence of raised left atrial pressure. 2. Mildly enlarged right ventricle with normal contractility. 3. Mild mitral and tricuspid regurgitation 4. No significant pericardial effusion noted.
== END 2018-12-25 17:00 | disposition home or self-care (01) ==
LOC: ICU 19:57 → ER 19:57 → ICU 12-25 00:09
PROVIDERS: ADMIT Internal Medicine Adolescent Medicine; ATTEND Family Medicine
CPT/HCPCS: 36415; 71010; 71045; 78452; 80048; 80061; 82962; 83735; 84484; 85007; 85025; 93005; 93017; 93306; 99282; A9502; G0378; J2785

== ENCOUNTER → 2019-01-20 09:58 | Outpatient (POV) | payer MEDICAID, SELFPAY ==
[2019-01-20 10:21] VITALS: BP 135/77; PULSE 93; RESP 18; O2SAT 98; BMI 54.8
--- NOTE | 2019-01-20 10:33 | HMH.PAINSOAP ---
[facility] Pain Management SOAP Note Subjective:: Patient is a very pleasant 48-year-old white female who presents today for follow-up after her lumbar epidural steroid injection. Patient states she got 80% relief for several weeks post her last injection. Patient states she is still more functional at this time. She is continuing to take anti-inflammatory medication along with her home stretching exercises. She states she is much more functional. Patient would like to repeat this and finish the set of 3 epidurals. She rates her pain a 4 out of 10 today. ROS General: no recent weight change, no fever, no sleep disturbances Respiratory: no cough, no shortness of air, no recurring pulmonary infections Cardiovascular/Peripheral Vascular: No chest pain, No palpitations, no edema, no shortness of breath. Gastrointestinal: no incontinence, normal bowel movements reported Genitourinary: no incontinence Musculoskeletal: Back pain Psychiatric: normal mood/ affect Neurological: [denies weakness in extremities], [denies balance issues] Objective:: Physical Exam General: Alert and oriented x3, no acute distress, pleasant and cooperative, [on room air] Lungs: Resps E/U, Symmetrical chest expansion, Eyes: PERRL Musculoskeletal: Flexion and extension of lumbar spine somewhat guarded secondary to pain, deep tendon reflexes normal, strength in upper and lower extremities [5/5], antalgic gait noted Neurological: speech clear, pc installation engineer equal, no gross sensory deficits Assessment:: Degenerative disc disease lumbar spine with lumbar radiculopathy symptoms and spinal stenosis with neurogenic claudication Plan:: We will schedule to additional L4-L5 epidural injections given the efficacy of the last one. I will follow-up with the patient after this. Patient's not on any anticoagulation therapy. Dr. Jefferson has reviewed this note and agrees with this plan of care. This note was dictated using voice recognition software and may contain errors or omissions
== END ==
PROVIDERS: PCP Family Medicine; Visit Provider Clinical Nurse Specialist Family Health
DX: M51.16 Intervertebral disc disorders with radiculopathy, lumbar region (principal); M48.062 Spinal stenosis, lumbar region with neurogenic claudication
CPT/HCPCS: 99213

== ENCOUNTER → 2019-03-17 13:29 | Outpatient (POV) | payer MEDICAID, SELFPAY ==
[2019-03-17 13:53] VITALS: BP 176/84; PULSE 105; RESP 18; O2SAT 98; BMI 54.8
--- NOTE | 2019-03-18 16:55 | HMH.PAINSOAP ---
[facility] Pain Management SOAP Note Subjective:: Patient is a pleasant 48-year-old white female who presents today after her third epidural steroid injection. Overall she is doing very well patient rates her pain a 6 out of 10. Patient would like to follow-up as needed. ROS General: no recent weight change, no fever, no sleep disturbances Respiratory: no cough, no shortness of air, no recurring pulmonary infections Cardiovascular/Peripheral Vascular: No chest pain, No palpitations, no edema, no shortness of breath. Gastrointestinal: no incontinence, normal bowel movements reported Genitourinary: no incontinence Musculoskeletal: Back pain, leg pain Psychiatric: normal mood/ affect Neurological: [denies weakness in extremities], [denies balance issues] Objective:: Physical Exam General: Alert and oriented x3, no acute distress, pleasant and cooperative, [on room air] Lungs: Resps E/U, Symmetrical chest expansion, Eyes: PERRL Musculoskeletal: Flexion and extension of lumbar spine somewhat guarded secondary to pain, deep tendon reflexes normal, strength in upper and lower extremities [5/5], normal gait noted Neurological: speech clear, section repairer equal, no gross sensory deficits Assessment:: Degenerative disc disease lumbar spine with lumbar radiculopathy symptoms Plan:: We will see the patient back in 2 months to reassess her symptoms at that time she is been instructed to call the office if she has any issues prior to next appointment. Dr. Jefferson has reviewed this note and agrees with this plan of care. This note was dictated using voice recognition software and may contain errors or omissions
--- NOTE | 2019-03-18 16:59 | P.CONS_ITS ---
[facility] Pain Management SOAP Note Subjective:: Patient is a pleasant 48-year-old white female who presents today after her third epidural steroid injection. Overall she is doing very well patient rates her pain a 6 out of 10. Patient would like to follow-up as needed. ROS General: no recent weight change, no fever, no sleep disturbances Respiratory: no cough, no shortness of air, no recurring pulmonary infections Cardiovascular/Peripheral Vascular: No chest pain, No palpitations, no edema, no shortness of breath. Gastrointestinal: no incontinence, normal bowel movements reported Genitourinary: no incontinence Musculoskeletal: Back pain, leg pain Psychiatric: normal mood/ affect Neurological: [denies weakness in extremities], [denies balance issues] Objective:: Physical Exam General: Alert and oriented x3, no acute distress, pleasant and cooperative, [on room air] Lungs: Resps E/U, Symmetrical chest expansion, Eyes: PERRL Musculoskeletal: Flexion and extension of lumbar spine somewhat guarded secondary to pain, deep tendon reflexes normal, strength in upper and lower extremities [5/5], normal gait noted Neurological: speech clear, technical aide equal, no gross sensory deficits Assessment:: Degenerative disc disease lumbar spine with lumbar radiculopathy symptoms Plan:: We will see the patient back in 2 months to reassess her symptoms at that time she is been instructed to call the office if she has any issues prior to next appointment. Dr. Jefferson has reviewed this note and agrees with this plan of care. This note was dictated using voice recognition software and may contain errors or omissions
== END ==
PROVIDERS: PCP Nurse Practitioner Family; Visit Provider Clinical Nurse Specialist Family Health
DX: M51.16 Intervertebral disc disorders with radiculopathy, lumbar region (principal)
CPT/HCPCS: 99212

== ENCOUNTER → 2019-05-07 09:54 | Outpatient (CLI) | payer MEDICAID, SELFPAY ==
--- NOTE | 2019-05-07 09:56 | NVE_ITS ---
Venous Exam Indications: 729.81 Swelling of limb. IMPRESSIONS 1. There is no evidence of significant Reflux. 2. No evidence of deep or superficial vein thrombosis involving the right lower extremity History: Risk factors: Obese. Right lower extremity venous duplex evaluation. Doppler flow study including spectral analysis, color and campbell scale imaging. Location: Vascular laboratory. Patient status: Outpatient. Tables: Venous flow and imaging: + +-------+ + Location Overall Flow properties + +-------+ + Right common femoral Patent Normal phasicity; spontaneous; normal augmentation; compressible + +-------+ + Right saphenofemoral junction Patent Compressible + +-------+ + Right profunda femoral Patent Compressible + +-------+ + Right femoral Patent Normal phasicity; spontaneous; normal augmentation; compressible + +-------+ + Right greater saphenous Patent Normal phasicity; spontaneous; normal augmentation; compressible + +-------+ + Right popliteal Patent Normal phasicity; spontaneous; normal augmentation; compressible + +-------+ + Right posterior tibial Patent Compressible + +-------+ + Right peroneal Patent Compressible + +-------+ + Right gastrocnemius Patent Compressible + +-------+ + Right soleal Patent Compressible + +-------+ + (Report amended ) Electronically signed by: Stephon Chapman [id number]
== END ==
PROVIDERS: PCP Nurse Practitioner Family; Visit Provider Nurse Practitioner Family
DX: M79.89 Other specified soft tissue disorders (principal)
CPT/HCPCS: 93971

== ENCOUNTER → 2019-05-12 09:37 | Outpatient (POV) | payer MEDICAID, SELFPAY ==
[2019-05-12 09:40] VITALS: BP 130/84; PULSE 99; RESP 18; O2SAT 98; BMI 54.8
--- NOTE | 2019-05-12 10:18 | HMH.PAINSOAP ---
[facility] Pain Management SOAP Note Subjective:: Patient is a pleasant 48-year-old white female who presents today follow-up of a lumbar epidural steroid injection at L4-L5. Says that the injection was great. She has about 80% relief. She is also taking CBD oil, THC free. She says that this has worked very well for her pain. Patient would like to follow-up as needed. ROS General: no recent weight change, no fever, no sleep disturbances Respiratory: no cough, no shortness of air, no recurring pulmonary infections Cardiovascular/Peripheral Vascular: No chest pain, No palpitations, no edema, no shortness of breath. Gastrointestinal: no incontinence, normal bowel movements reported Genitourinary: no incontinence Musculoskeletal: Back pain Psychiatric: normal mood/ affect, [denies depression], [denies anxiety] Neurological: [denies weakness in extremities], [denies balance issues] Objective:: Physical Exam General: Alert and oriented x3, no acute distress, pleasant and cooperative, [on room air] Lungs: Resps E/U, Symmetrical chest expansion, Eyes: PERRL Musculoskeletal: Flexion and extension of lumbar spine somewhat guarded secondary to pain, deep tendon reflexes normal, strength in upper and lower extremities [5/5], normal gait noted Neurological: speech clear, light out examiner equal, no gross sensory deficits Assessment:: Degenerative disc disease lumbar spine with lumbar radiculopathy Plan:: The patient is doing well, overall. She would like to follow-up with us as needed. We will see the patient back on a as needed basis, she has been instructed to call the office if she has any concerns. Dr. Jefferson has reviewed this note and agrees with this plan of care. This note was dictated using voice recognition software and may contain errors or omissions
--- NOTE | 2019-05-12 10:21 | P.CONS_ITS ---
[facility] Pain Management SOAP Note Subjective:: Patient is a pleasant 48-year-old white female who presents today follow-up of a lumbar epidural steroid injection at L4-L5. Says that the injection was great. She has about 80% relief. She is also taking CBD oil, THC free. She says that this has worked very well for her pain. Patient would like to follow-up as needed. ROS General: no recent weight change, no fever, no sleep disturbances Respiratory: no cough, no shortness of air, no recurring pulmonary infections Cardiovascular/Peripheral Vascular: No chest pain, No palpitations, no edema, no shortness of breath. Gastrointestinal: no incontinence, normal bowel movements reported Genitourinary: no incontinence Musculoskeletal: Back pain Psychiatric: normal mood/ affect, [denies depression], [denies anxiety] Neurological: [denies weakness in extremities], [denies balance issues] Objective:: Physical Exam General: Alert and oriented x3, no acute distress, pleasant and cooperative, [on room air] Lungs: Resps E/U, Symmetrical chest expansion, Eyes: PERRL Musculoskeletal: Flexion and extension of lumbar spine somewhat guarded secondary to pain, deep tendon reflexes normal, strength in upper and lower extremities [5/5], normal gait noted Neurological: speech clear, landscape architect equal, no gross sensory deficits Assessment:: Degenerative disc disease lumbar spine with lumbar radiculopathy Plan:: The patient is doing well, overall. She would like to follow-up with us as needed. We will see the patient back on a as needed basis, she has been instructed to call the office if she has any concerns. Dr. Jefferson has reviewed this note and agrees with this plan of care. This note was dictated using voice recognition software and may contain errors or omissions
== END ==
PROVIDERS: PCP Nurse Practitioner Family; Visit Provider Clinical Nurse Specialist Family Health
DX: M51.16 Intervertebral disc disorders with radiculopathy, lumbar region (principal)
CPT/HCPCS: 99212

== ENCOUNTER → 2019-05-16 14:23 | Outpatient (CLI) | payer MEDICAID, SELFPAY ==
[2019-05-16 18:16] LABS: Ferritin 72 ng/mL (8-388)
[2019-05-19 03:27] LABS: Vitamin B12 746 pg/mL (232-1245)
== END ==
PROVIDERS: Visit Provider Specialist
DX: E83.10 Disorder of iron metabolism, unspecified (principal); G25.81 Restless legs syndrome; G47.33 Obstructive sleep apnea (adult) (pediatric)
CPT/HCPCS: 36415; 82607; 82728

== ENCOUNTER → 2019-05-29 13:30 | Outpatient (CLI) | payer MEDICAID, SELFPAY | PROVIDERS: PCP Nurse Practitioner Family; Visit Provider Specialist | DX: E83.10 Disorder of iron metabolism, unspecified (principal); G25.81 Restless legs syndrome; G47.33 Obstructive sleep apnea (adult) (pediatric) | CPT/HCPCS: 94762 ==

== ENCOUNTER → 2019-06-09 07:49 | Outpatient (POV) | payer MEDICAID, SELFPAY | PROVIDERS: Visit Provider Specialist | DX: M79.604 Pain in right leg (principal); R20.0 Anesthesia of skin; R20.2 Paresthesia of skin | CPT/HCPCS: 95886; 95908 ==

== ENCOUNTER → 2019-06-25 20:46 | Outpatient (CLI) | payer MEDICAID, SELFPAY | PROVIDERS: PCP Nurse Practitioner Family; Visit Provider Nurse Practitioner Family | DX: G47.33 Obstructive sleep apnea (adult) (pediatric) (principal) | CPT/HCPCS: 95811 ==

== ENCOUNTER → 2019-10-08 09:54 | Outpatient (CLI) | payer OTHER, SELFPAY ==
--- NOTE | 2019-10-08 09:58 | XR_ITS ---
PROCEDURE: XR DEXA AXIAL SKELETON CLINICAL HISTORY: OSTEOARTHRITIS,RHEUMATOID ARTHRITIS COMPARISON: No exams were available for comparison FINDINGS: L1-L4 density is 1.041 grams/centimeters sq with T-score -1 2. Right femoral neck density is 0.873 grams/centimeters sq with a T-score -0.2. IMPRESSION: Osteopenia with moderate fracture risk. Treatment advised. Suggest follow-up exam September 2020 Dictated by: Stephon Chapman MD 10/08/2019 18:48 Electronically signed by Stephon Chapman MD in [place] 10/08/2019 18:48
== END ==
PROVIDERS: PCP Nurse Practitioner Family; Visit Provider Nurse Practitioner Family
DX: M19.90 Unspecified osteoarthritis, unspecified site (principal); M06.9 Rheumatoid arthritis, unspecified; M85.89 Other specified disorders of bone density and structure, multiple sites
CPT/HCPCS: 77080

== ENCOUNTER → 2020-03-05 09:48 | Outpatient (CLI) | payer OTHER, SELFPAY ==
--- NOTE | 2020-03-05 09:55 | XR_ITS ---
PROCEDURE: XR ANKLE LT MIN 3V CLINICAL INDICATION: SWELLING LT ANKLE Pain and swelling COMPARISON: No exams were available for comparison FINDINGS: No acute fracture or dislocation. There is minimal hypertrophic change at the tip of the medial malleolus with an additional faint density between the tip the medial malleolus and the medial aspect of the talus which could represent an avulsion injury age indeterminate. IMPRESSION: Minimal hypertrophy the medial malleolus with possible avulsion injury between the medial malleolus and talus age indeterminate otherwise Dictated by: Stephon Chapman MD 03/05/2020 13:18 Electronically signed by Stephon Chapman MD in [place] 03/05/2020 13:18
[2020-03-05 10:56] LABS: Basophils # 0.2 K/mm3 (0-0.2); Basophils % 1.1 % (0.1-2.0); Eosinophils # 0.2 K/mm3 (0.0-0.4); Eosinophils % 1.5 % (0.1-12.0); Hematocrit 40.9 % (37.0-47.0); Hemoglobin 12.4 g/dL (12.2-16.2); Lymphocytes # 3.1 K/mm3 (0.7-4.5); Lymphocytes % 21.7 % (10-50); Mean Corpuscular HGB Conc 30.3 g/dL (31.8-35.4); Mean Corpuscular Hemoglobin 27.5 pg (27.0-31.2); Mean Corpuscular Volume 90.6 fl (81-99); Mean Platelet Volume 7.5 fl (7.4-10.4); Monocytes # 0.6 K/mm3 (0.1-1.0); Monocytes % 4.5 % (1.7-9.3); Neutrophils # 10.2 K/mm3 (1.8-7.8); Neutrophils % 71.1 % (37.0-80.0); Platelet Count 374 K/mm3 (142-424); Red Blood Count 4.51 M/mm3 (4.20-5.40); White Blood Count 14.3 K/mm3 (4.8-10.8)
[2020-03-05 11:50] LABS: Erythrocyte Sedimentation Rate > 140 mm/hr (0-20)
[2020-03-05 12:19] LABS: Chloride 99 mmol/L (98-107); Potassium 4.5 mmoL/L (3.5-5.1); Sodium 135 mmol/L (136-145)
[2020-03-05 12:21] LABS: Alanine Aminotransferase 27 U/L (12-78); Aspartate Amino Transferase 23 U/L (14-36); Blood Urea Nitrogen 12 mg/dl (7-17); Estimated Glomerular Filt Rate 131 ml/min (>60); GFR (African American) 158 ML/MIN (>60)
[2020-03-05 12:22] LABS: Albumin Level 3.8 g/dl (3.5-5.0); Albumin/Globulin Ratio 1.2 (1.1-1.8); Alkaline Phosphatase 84 U/L (38-126); Anion Gap 10.5 mEq/L (5-15); Bilirubin,Total 0.2 mg/dl (0.2-1.3); Calcium 9.5 mg/dl (8.4-10.2); Carbon Dioxide 30 mmol/L (22.0-30.0); Globulin 3.3 g/dL (1.3-3.2); Glucose 142 mg/dl (74-100); Total Protein,Serum 7.1 g/dl (6.3-8.2); Uric Acid 4.7 mg/dl (2.5-6.2)
[2020-03-05 12:27] LABS: C-Reactive Protein 35.6 mg/L (0-4)
[2020-03-05 12:51] LABS: Thyroid Stimulating Hormone 2.57 uIU/mL (0.465-4.68)
[2020-03-06 09:15] LABS: RA Latex Turbid. 71.8 IU/mL (0.0-13.9)
[2020-03-09 06:57] LABS: Antinuclear Antibodies, IFA Negative (.)
== END ==
PROVIDERS: PCP Nurse Practitioner Family; Visit Provider Nurse Practitioner Family
DX: M25.472 Effusion, left ankle (principal); R60.9 Edema, unspecified
CPT/HCPCS: 36415; 73610; 80053; 84443; 84550; 85025; 85651; 86038; 86140; 86431

== ENCOUNTER → 2020-03-23 09:13 | Outpatient (CLI) | payer OTHER, SELFPAY ==
--- NOTE | 2020-03-23 09:23 | XR_ITS ---
PROCEDURE: XR FOOT WT BEARING LT 3V CLINICAL INDICATION: Fracture follow up. Pain COMPARISON: XR ANKLE LT MIN 3V from 03/05/2020 XR ANKLE WT BEARING LT MIN 3V from 03/23/2020 FINDINGS: The faint calcific density along the medial aspect of the ankle joint previously described is not apparent on today's image and could be due to root bony resorption or slight difference in positioning. There is some hypertrophic change of the tip of the medial malleolus. Hypertrophic changes are also present at the anterior aspect of the distal tibia. There are mild degenerative changes of the foot. IMPRESSION: Mild degenerative changes of the foot and ankle. Previously noted calcific density along the medial aspect of the ankle joint is not apparent and could be due to bony resorption of the fracture fragment or positioning. Dictated by: Stephon Chapman MD 03/23/2020 14:38 Electronically signed by Stephon Chapman MD in [place] 03/23/2020 14:38
== END ==
PROVIDERS: PCP Nurse Practitioner Family; Visit Provider Podiatrist
DX: T14.8XXA Other injury of unspecified body region, initial encounter (principal); M25.572 Pain in left ankle and joints of left foot
CPT/HCPCS: 73610; 73630

== ENCOUNTER → 2020-04-19 13:46 | Outpatient (CLI) | payer OTHER, SELFPAY ==
--- NOTE | 2020-04-19 13:51 | XR_ITS ---
PROCEDURE: XR FOOT WT BEARING LT 3V CLINICAL INDICATION: fracture follow up COMPARISON: XR FOOT WT BEARING LT 3V from 03/23/2020 FINDINGS: No fracture or dislocation. No lytic or blastic change. There is normal mineralization. The joint spaces are well-preserved. No significant degenerative/arthritic changes. No erosive changes evident. Other findings:There is mild hypertrophic change along the anterior distal tibia. Small calcaneal spurs noted IMPRESSION: No change with no acute finding Dictated by: Stephon Chapman MD 04/19/2020 15:44 Electronically signed by Stephon Chapman MD in [place] 04/19/2020 15:44
--- NOTE | 2020-04-19 13:51 | XR_ITS ---
PROCEDURE: XR ANKLE WT BEARING LT MIN 3V CLINICAL INDICATION: fracture follow up COMPARISON: XR ANKLE LT MIN 3V from 03/05/2020 XR ANKLE WT BEARING LT MIN 3V from 03/23/2020 FINDINGS: Normal alignment. No fracture or dislocation. Previously there was a small calcific density along the medial aspect of ankle joint and is not apparent on today's image. There are minimal hypertrophic changes of the medial malleolar tip. IMPRESSION: No change with no acute finding Dictated by: Stephon Chapman MD 04/19/2020 15:40 Electronically signed by Stephon Chapman MD in [place] 04/19/2020 15:40
== END ==
PROVIDERS: PCP Nurse Practitioner Family; Visit Provider Podiatrist
DX: T14.8XXA Other injury of unspecified body region, initial encounter (principal); S82.892D Other fracture of left lower leg, subsequent encounter for closed fracture with routine healing
CPT/HCPCS: 73610; 73630

== ENCOUNTER → 2020-06-16 12:28 | Outpatient (CLI) | payer OTHER, SELFPAY ==
[2020-06-16 17:07] LABS: Ferritin 40.2 ng/ml (6.24-137)
== END ==
PROVIDERS: Visit Provider Specialist
DX: E83.10 Disorder of iron metabolism, unspecified (principal); G25.81 Restless legs syndrome; G47.33 Obstructive sleep apnea (adult) (pediatric)
CPT/HCPCS: 36415; 82728

== ENCOUNTER → 2021-02-01 09:00 | Outpatient (CLI) | payer OTHER, SELFPAY ==
--- NOTE | 2021-02-01 09:04 | XR_ITS ---
PROCEDURE: XR DEXA AXIAL SKELETON CLINICAL HISTORY: OSTEOPENIA COMPARISON: No exams were available for comparison FINDINGS: The right hip BMD is 0.834 with a T-score of -0.1. The left hip BMD is 0.845 with a T-score of 0.0. The lumbar spine BMD is 0.986 with a T-score of -0.6. IMPRESSION: This patient is considered normal according to the World Health Organization criteria. Fracture risk is low. Based on these results a follow-up exam is recommended in 1 year. Dictated by: Stephon Chapman MD 02/03/2021 08:01 Stephon Chapman MD in [place] 02/03/2021 08:01
== END ==
PROVIDERS: PCP Nurse Practitioner Family; Visit Provider Nurse Practitioner Family
DX: M85.80 Other specified disorders of bone density and structure, unspecified site (principal)
CPT/HCPCS: 77080

== ENCOUNTER 2021-03-25 19:44 | Emergency (ER) | payer OTHER, SELFPAY ==
--- NOTE | 2021-03-25 19:51 | XR_ITS ---
PROCEDURE INFORMATION: Exam: XR Left Hip Exam date and time: 03/25/2021 7:51 PM Age: 50 years old Clinical indication: Hip pain; Left hip; Additional info: Fall, lt hip pain TECHNIQUE: Imaging protocol: XR Left hip. Views: 2 or 3 views hip with pelvis when performed. COMPARISON: No relevant prior studies available. FINDINGS: Bones/joints: Degenerative changes of the visualized lower lumbar spine. Mild degenerative changes of the hips, manifest by joint space narrowing minimal osteophyte formation. No acute fracture or dislocation. Soft tissues: Unremarkable. IMPRESSION: No acute fracture or dislocation.
[2021-03-25 20:00] VITALS: BP 136/91; PULSE 89; RESP 20; TEMP 36.8; O2SAT 98; BMI 56.1
--- NOTE | 2021-03-25 20:09 | HMH.EDUTC ---
[facility] [place] Disposition Clinical Impression: Left hip pain Disposition: Home, Self-Care Condition on Discharge: Good Instructions: DI for Hip Pain Additional Instructions: Follow up with Shayy if not improving Prescriptions: Naproxen [Naproxen 500mg tab] 500 mg PO BID 5 Days #10 tab Transmission Status: Pending to [facility] Tizanidine HCl [Zanaflex 4mg tablet] 4 mg PO Q8HP PRN 10 Days #30 tab PRN Reason: Muscle Spasm Transmission Status: Pending to [facility] Referrals: Shayy Feliciano APRN [Primary Care Provider] - Time of Disposition: 20:29 Medical Decision Making - Varun Inquiry Pt receiving controlled substance: No Vital Signs: 03/25/21 20:00 Temperature 98.3 F Temperature Source Oral Pulse Rate [Right Brachial] 89 Respiratory Rate 20 Blood Pressure [Right Arm] 136/91 H Blood Pressure Mean [Right Arm] 106 Blood Pressure Source [Right Arm] Automatic Cuff Blood Pressure Position [Right Arm] Sitting 02 Sat by Pulse Oximetry 98 Oxygen Delivery Method Room Air Orders (Tests/Meds): ORDERS Category Date Time Status Hip XR left minimum 2 views [XR hip LT 2-3V w/pelvis] Exams 03/25/21 19:51 Taken Stat - Radiology Data #1 Image(s): Hip Image Reviewed: Yes I reviewed the patient's radiology image Preliminary Findings: Normal/NAD, No Fracture Seen [facility] [place] HPI - General Stated complaint: AO05/07@1300 left leg injury Time Seen by Provider: 03/25/21 20:09 - History of Present Illness Provider Complaint: Patient was walking in yard 8 hours ago and slid in wet grass. She states she nearly did the splits and landed hard on her left hip/buttock. Pain is below her left buttock and radiates down left leg and into groin. Getting up from seated position is painful. Onset (ago): hour(s) (8) Location: buttocks, left, lower extremity Radiation: extremity Severity: moderate Severity scale (1-10): 5 Quality: aching, sharp, constant Consistency: constant Relieving factors: immobilization Exacerbating factors: movement Associated symptoms: denies other symptoms Treatments prior to arrival: NSAID - Related Data Home Medications Medication Instructions Recorded Confirmed Loratadine [Claritin 10mg 10 mg PO DAILY 12/10/18 01/12/21 Tablet] montelukast 10 mg tablet 10 mg PO QPM 05/16/19 01/12/21 tofacitinib 10 mg tablet 10 mg PO ONCE tab 05/16/19 01/12/21 alendronate 70 mg tablet 70 mg PO QWEEK tab 02/16/20 01/12/21 escitalopram oxalate 20 mg tablet 20 mg PO DAILY tab 02/16/20 01/12/21 omeprazole 40 mg capsule,delayed 40 mg PO DAILY cap 02/16/20 01/12/21 release triamterene 37.5 1 tab PO DAILY tab 03/17/20 01/12/21 mg-hydrochlorothiazide 25 mg tablet diclofenac sodium 1 % topical gel 4 g TOPICAL QID g 03/23/20 01/12/21 cetirizine 10 mg tablet 10 mg PO tab 04/19/20 01/12/21 folic acid 1 mg tablet 1 mg PO tab 04/19/20 01/12/21 methotrexate sodium 2.5 mg tablet 2.5 mg PO tab 04/19/20 01/12/21 dapagliflozin 10 mg tablet 10 mg PO DAILY 06/14/20 01/12/21 losartan 25 mg tablet 25 mg PO DAILY tab 06/16/20 01/12/21 metformin 500 mg tablet,extended mg PO 06/16/20 01/12/21 release 24 hr ertugliflozin 15 mg tablet 15 mg PO DAILY tab 01/12/21 01/12/21 Previous Rx's Medication Instructions Recorded gabapentin 300 mg capsule 300 mg PO BID #60 cap 01/12/21 ropinirole 1 mg tablet 2 mg PO QHS 30 Days #60 tab NS MDD 01/12/21 1 mg Naproxen [Naproxen 500mg tab] 500 mg PO BID 5 Days #10 tab 03/25/21 Tizanidine HCl [Zanaflex 4mg 4 mg PO Q8HP PRN 10 Days #30 tab 03/25/21 tablet] Allergies Allergy/AdvReac Type Severity Reaction Status Date / Time No Known Allergies Allergy Verified 03/25/21 20:15 [facility] History - Hepatitis A Screen Attestation statement:: This patient has been screened for Hepatitis A risk factors. I have reviewed the patient's past medical history: Yes Medical History: Reports:: Anxiety, Asthma, Diabetes Mellitus Type 2, Gas
[2021-03-25 20:43] VITALS: BP 136/91; PULSE 89; RESP 20; TEMP 36.8; O2SAT 98
== END 2021-03-25 20:48 | disposition home or self-care (01) ==
PROVIDERS: Emergency Provider Physician Assistant; PCP Nurse Practitioner Family
DX: M25.552 Pain in left hip (principal); W01.0XXA Fall on same level from slipping, tripping and stumbling without subsequent striking against object, initial encounter; Y92.017 Garden or yard in single-family (private) house as the place of occurrence of the external cause; E11.9 Type 2 diabetes mellitus without complications; K21.9 Gastro-esophageal reflux disease without esophagitis; I10 Essential (primary) hypertension; M79.7 Fibromyalgia; F41.9 Anxiety disorder, unspecified; Z79.899 Other long term (current) drug therapy; F17.210 Nicotine dependence, cigarettes, uncomplicated
CPT/HCPCS: 73502; 96372; 99202; G0463

== ENCOUNTER → 2021-08-10 10:37 | Outpatient (CLI) | payer OTHER, SELFPAY ==
--- NOTE | 2021-08-10 10:46 | XR_ITS ---
PROCEDURE: XR HAND LT MIN 3V CLINICAL INDICATION: FALL W/HYPEREXTENSION OF INDEX AND MIDDLE FINGER COMPARISON: CR HANDR3 HAND-RT 3 VIEWS from 05/23/2017 CR HANDL3 HAND-LT-3 VIEWS from 05/23/2017 FINDINGS: No fracture or dislocation. No lytic or blastic change. There is normal mineralization. The joint spaces are well-preserved. No significant degenerative/arthritic changes. No erosive changes evident. Other findings:None. IMPRESSION: No acute findings. Dictated by: Stephon Chapman MD 08/10/2021 11:07 Stephon Chapman MD in [place] 08/10/2021 11:07
== END ==
PROVIDERS: PCP Family Medicine; Visit Provider Family Medicine
DX: M79.642 Pain in left hand (principal)
CPT/HCPCS: 73130

== ENCOUNTER → 2022-02-28 13:29 | Outpatient (CLI) | payer OTHER, SELFPAY ==
[2022-02-28 16:03] LABS: Ferritin 50.6 ng/ml (11.1-264)
== END ==
PROVIDERS: Visit Provider Nurse Practitioner Family
DX: E83.10 Disorder of iron metabolism, unspecified (principal); G25.81 Restless legs syndrome
CPT/HCPCS: 36415; 82728

== ENCOUNTER → 2022-03-31 11:31 | Outpatient (CLI) | payer OTHER, SELFPAY ==
--- NOTE | 2022-03-31 11:37 | XR_ITS ---
FINAL REPORT CLINICAL HISTORY: LT ANTERIOR KNEE PAIN FINDINGS: LEFT KNEE Three views of the left knee were obtained. There is no acute fracture or dislocation. Visualized joint spaces are normally aligned. There is no joint effusion. Soft tissues are unremarkable. IMPRESSION: No acute bony abnormality. Reviewed, Interpreted and Dictated by Tim Mclaughlin III, MD Transcribed by Maria Ines Darnell Authenticated by Tim Mclaughlin III, MD on 03/31/2022 02:21:55 PM [facility]
== END ==
PROVIDERS: PCP Nurse Practitioner Family; Visit Provider Nurse Practitioner Family
DX: M25.562 Pain in left knee (principal)
CPT/HCPCS: 73562

== ENCOUNTER 2023-07-07 22:38 | Emergency (ER) | payer OTHER, SELFPAY ==
[2023-07-07 22:40] VITALS: BP 151/85; RESP 20; TEMP 36.7; O2SAT 97; BMI 47.5
--- NOTE | 2023-07-07 22:57 | PC.NURSE ---
Dr. Dee at [facility]
--- NOTE | 2023-07-07 23:02 | XR_ITS ---
PROCEDURE INFORMATION: Exam: XR Right Knee Exam date and time: 07/07/2023 11:59 PM Age: 52 years old Clinical indication: Pain; Knee; Right; Additional info: Twisting injury, posterior pain TECHNIQUE: Imaging protocol: Radiologic exam of the right knee. Views: 3 views. COMPARISON: US CA venous doppler LE RT 05/07/2019 10:20 AM FINDINGS: Bones/joints: There is a fabella. No acute fracture or dislocation is identified. Soft tissues: Normal. IMPRESSION: No acute osseous injury.
--- NOTE | 2023-07-07 23:06 | HMH.EDGENADL ---
Discharge Plan Disposition Patient Disposition: Home, Self-Care Prescriptions Prescriptions: No Action escitalopram oxalate 20 mg tablet 20 mg PO DAILY omeprazole 40 mg capsule,delayed release(DR/EC) 40 mg PO DAILY triamterene-hydrochlorothiazid 37.5-25 mg tablet 1 tab PO DAILY diclofenac sodium 1 % gel 4 g TOPICAL QID losartan 25 mg tablet 25 mg PO DAILY metformin 500 mg tablet extended release 24 hr 500 mg PO DAILY cetirizine 10 mg tablet 10 mg PO DAILY folic acid 1 mg tablet 1 mg PO DAILY Farxiga 10 mg tablet 5 mg PO DAILY ertugliflozin 15 mg tablet 15 mg PO DAILY Xeljanz 10 mg tablet 10 mg PO ONCE montelukast [Singulair] 10 mg tablet 10 mg PO QPM albuterol sulfate [ProAir HFA] 90 mcg/actuation HFA aerosol inhaler 1 puff INHALATION PRN buspirone 7.5 mg tablet 7.5 mg PO BID fluticasone propionate 50 mcg/actuation spray,suspension 1 spray INTRANASAL DAILY olopatadine 0.1 % drops 1 drp OPHTHALMIC PRN ibuprofen 600 mg tablet 600 mg PO PRN Ozempic 0.25 mg or 0.5 mg(2 mg/1.5 mL) pen injector 0.5 mg SQ WEEKLY gabapentin 300 mg capsule 300 mg PO BID Qty: 60 3RF ropinirole 1 mg tablet 1 mg PO BID 30 Days Qty: 60 3RF Rx Instructions: 1 tablet 1-3 hours before bedtime and 1 tablet PRN every morning for RLS symptoms Referrals Follow up/Referrals: Scooby White JR, MD [Physician] - See instructions Shayy Feliciano APRN [Primary Care Provider] - See instructions Activity Restrictions/Add. Instructions Additional Instructions/Restrictions: You were evaluated in the emergency department today for right knee pain. You do not have fracture or dislocation. We did not identify any obvious bony injury. You have been referred to orthopedics for reevaluation. Wrap the knee with the provided elastic bandage if needed for support. Use the crutches if needed for assistance with walking. Continue taking all home medications as prescribed. Follow-up with orthopedics when they contact you for an appointment. Also make an appointment for the next 2 days with your primary care physician for reevaluation. Return to the emergency department with any new or worsening symptoms. Clinical Impressions Clinical Impression: Knee pain Discharge ED Provider: Amor Dee General Adult HPI General Chief complaint: Extremity Injury, Lower Stated complaint: RT knee pain Time Seen by Provider: 07/07/23 22:55 Mode of Arrival: Wheelchair Source of Information: Patient Limitations: No Limitations Description of Symptoms (Recalled from ER Triage Doc. by RN): pt reports sweeping the floor and turned on her right knee wrong and it popped, now complains of pain History of Present Illness HPI narrative: This 52-year-old female presents to the emergency department with acute right knee pain. Patient has a history of rheumatoid arthritis, hypertension, diabetes and states that she was cleaning her house when she twisted on the right leg and felt a sharp pop in the right knee. She did not fall but quickly sat on the floor and stated she had severe pain for approximately 1-1/2 minutes, it has slightly subsided but continues to be persistently tender. She states she has pain primarily in the back of her knee. She states she thinks she pulled a muscle. She has not taken any pain medications today. She states she does not like the way morphine made her feel in the past and does not want full dose of oxycodone. No other injuries or complaints at this time. Related Data Home Medications Medication Instructions Recorded Confirmed montelukast 10 mg tablet 10 mg PO QPM 05/16/19 05/17/23 (Singulair) tofacitinib 10 mg tablet (Xeljanz) 10 mg PO ONCE 05/16/19 05/17/23 escitalopram oxalate 20 mg tablet 20 mg PO DAILY 02/16/20 05/17/23 omeprazole 40 mg capsule,delayed 40 mg PO DAILY 02/16/20 05/17/23 release triamter
[2023-07-08 00:40] VITALS: BP 138/75; PULSE 84; RESP 18; TEMP 36.7; O2SAT 98
== END 2023-07-08 00:47 | disposition home or self-care (01) ==
PROVIDERS: Emergency Provider Emergency Medicine; PCP Nurse Practitioner Family
DX: M25.561 Pain in right knee (principal); M06.9 Rheumatoid arthritis, unspecified; I10 Essential (primary) hypertension; E11.9 Type 2 diabetes mellitus without complications; F17.210 Nicotine dependence, cigarettes, uncomplicated; X50.1XXA Overexertion from prolonged static or awkward postures, initial encounter
CPT/HCPCS: 73562; 99283

== ENCOUNTER → 2023-10-30 12:09 | Outpatient (CLI) | payer OTHER, SELFPAY ==
[2023-10-30 11:43] LABS: Hemoglobin A1C 5.6 % (4.0-6.0)
[2023-10-30 11:51] LABS: Alanine Aminotransferase 23 U/L (12-78); Albumin Level 4.2 g/dl (3.5-5.0); Albumin/Globulin Ratio 1.4 (1.1-1.8); Alkaline Phosphatase 85 U/L (38-126); Aspartate Amino Transferase 26 U/L (14-36); Bilirubin,Total 0.4 mg/dl (0.2-1.3); Blood Urea Nitrogen 12 mg/dl (7-17); Calcium 8.7 mg/dl (8.4-10.2); Carbon Dioxide 27 mmol/L (22.0-30.0); Chloride 104 mmol/L (98-107); Chol/HDL Ratio 3.5 (1-3.5); Cholesterol 146 mg/dl (140-200); Estimated Glomerular Filt Rate 129 ml/min (>60); GFR (African American) 156 ML/MIN (>60); Glucose 96 mg/dl (74-100); HDL Cholesterol 42 mg/dl (40-60); Sodium 138 mmol/L (136-145); Total Protein,Serum 7.2 g/dl (6.3-8.2); Triglycerides 76 mg/dl (30-150); VLDL Cholesterol 15 mg/dL (0-40)
[2023-10-30 12:02] LABS: Direct LDL Cholesterol 90.67 mg/dL (100-129)
[2023-10-30 12:20] LABS: Thyroid Stimulating Hormone 1.07 uIU/mL (0.465-4.68)
== END ==
PROVIDERS: PCP Nurse Practitioner Family; Visit Provider Nurse Practitioner Family
DX: E11.9 Type 2 diabetes mellitus without complications (principal); G25.81 Restless legs syndrome; I10 Essential (primary) hypertension; Z79.84 Long term (current) use of oral hypoglycemic drugs; Z79.85 Long-term (current) use of injectable non-insulin antidiabetic drugs; Z72.0 Tobacco use
CPT/HCPCS: 80053; 80061; 82043; 83036; 84443

== ENCOUNTER 2024-04-07 15:19 | Outpatient (CLI) | payer OTHER, SELFPAY ==
[2024-04-16 02:12] LABS: Amphetamines IA Negative ng/mL (Cutoff:50); Barbiturates, IA Negative ug/mL (Cutoff:0.1); Benzodiazepines, IA Negative ng/mL (Cutoff:20); Cocaine & Metabolite, IA Negative ng/mL (Cutoff:25); Methadone, IA Negative ng/mL (Cutoff:25); Opiates, IA Negative ng/mL (Cutoff:5); Oxycodones, IA Negative ng/mL (Cutoff:5); Phencyclidine, IA Negative ng/mL (Cutoff:8); Propoxyphene, IA Negative ng/mL (Cutoff:50); THC (Marijauna) Metabolite, IA Negative ng/mL (Cutoff:5)
== END 2024-04-07 23:59 | disposition home or self-care (01) ==
LOC: LAB 15:20
PROVIDERS: PCP Nurse Practitioner Family; Visit Provider Nurse Practitioner Psychiatric/Mental Health
DX: F43.10 Post-traumatic stress disorder, unspecified (principal); Z79.899 Other long term (current) drug therapy
CPT/HCPCS: 36415; 80307

== ENCOUNTER 2024-04-25 15:30 | Outpatient (CLI) | payer OTHER, SELFPAY ==
--- NOTE | 2024-04-25 15:34 | XR_ITS ---
FINAL REPORT CLINICAL HISTORY: cough, 2 weeks r/o pneumonia FINDINGS: 2 views of the chest were obtained . The heart is normal in size. The mediastinum is within normal limits. Mild right base opacity may represent atelectasis or pneumonia. There is no pneumothorax. Osseous structures are unremarkable. IMPRESSION: Mild right base opacity may represent atelectasis or pneumonia. Reviewed, Interpreted and Dictated by Tim Mclaughlin III, MD Transcribed by Diana Bravo Authenticated and [facility]
== END 2024-04-25 23:59 | disposition home or self-care (01) ==
LOC: LAB.DROPOF 15:30
PROVIDERS: PCP Nurse Practitioner Family; Visit Provider Nurse Practitioner Family
DX: U07.1 COVID-19 (principal); R05.1 Acute cough
CPT/HCPCS: 71046; 87635

== ENCOUNTER 2024-05-29 22:41 | Emergency (ER) | payer OTHER, SELFPAY ==
[2024-05-29 22:52] VITALS: BP 156/86; PULSE 89; RESP 15; TEMP 36.7; O2SAT 96; BMI 53.0
--- NOTE | 2024-05-29 23:22 | HMH.EDGENADL ---
Discharge Plan Disposition Patient Disposition: Home, Self-Care Condition: Good Prescriptions Prescriptions: New methocarbamol 750 mg tablet 750 mg PO QID PRN (Reason: muscle spasm) Qty: 20 0RF No Action gabapentin 300 mg capsule 300 mg PO BID Qty: 60 5RF (DME) OneTouch Verio test strips Strip See Rx Instructions .ROUTE .MEDSUPPLY Qty: 10 Rx Instructions: As directed triamcinolone acetonide 55 mcg aerosol,spray 1 spray intranasal DAILY PRN Farxiga 5 mg tablet 5 mg PO DAILY 30 Days Qty: 30 6RF escitalopram oxalate 20 mg tablet 20 mg PO DAILY 30 Days Qty: 30 6RF losartan 25 mg tablet 25 mg PO DAILY 30 Days Qty: 30 6RF omeprazole 40 mg capsule,delayed release(DR/EC) 40 mg PO DAILY 30 Days Qty: 30 6RF alprazolam 0.25 mg tablet 0.25 mg PO BID PRN (Reason: anxiety) Qty: 20 0RF fluticasone propionate 50 mcg/actuation spray,suspension 1 spray INTRANASAL DAILY PRN ibuprofen 600 mg tablet 600 mg PO PRN olopatadine 0.1 % drops 1 drp OPHTHALMIC BID Qty: 5 0RF prednisone 10 mg tablets,dose pack 10 mg PO DIRECTED 6 Days Qty: 21 0RF Rx Instructions: see taper instructions levofloxacin 500 mg tablet 500 mg PO QDAY 10 Days Qty: 10 0RF prednisone 5 mg tablet 5 mg PO DAILY Qty: 30 0RF albuterol sulfate [ProAir HFA] 90 mcg/actuation HFA aerosol inhaler 2 puff INHALATION Q4-6H PRN (Reason: shortness of breath or wheezing) 30 Days Qty: 8.5 2RF buspirone 7.5 mg tablet See Rx Instructions .ROUTE .COMPLEX Qty: 60 3RF Dose Instruction: TAKE 1 TABLET BY MOUTH TWICE DAILY Rx Instructions: TAKE 1 TABLET BY MOUTH TWICE DAILY cetirizine 10 mg tablet See Rx Instructions .ROUTE .COMPLEX Qty: 30 9RF Dose Instruction: TAKE 1 TABLET BY MOUTH ONCE DAILY Rx Instructions: TAKE 1 TABLET BY MOUTH ONCE DAILY montelukast 10 mg tablet See Rx Instructions .ROUTE .COMPLEX Qty: 30 8RF Dose Instruction: TAKE 1 TABLET BY MOUTH ONCE DAILY Rx Instructions: TAKE 1 TABLET BY MOUTH ONCE DAILY triamterene-hydrochlorothiazid 37.5-25 mg tablet See Rx Instructions .ROUTE .COMPLEX Qty: 30 2RF Dose Instruction: TAKE 1 TABLET BY MOUTH EVERY MORNING Rx Instructions: TAKE 1 TABLET BY MOUTH EVERY MORNING Ozempic 0.25 mg or 0.5 mg (2 mg/3 mL) pen injector See Rx Instructions .ROUTE .COMPLEX Qty: 3 2RF Dose Instruction: INJECT 0.5 MG SUBCUTANEOUSLY ONCE WEEKLY Rx Instructions: INJECT 0.5 MG SUBCUTANEOUSLY ONCE WEEKLY ropinirole 1 mg tablet 1 mg PO BID 30 Days Qty: 60 1RF Rx Instructions: 1 tablet by mouth 1-3 hours before bedtime and 1 tablet PRN in morning for RLS symptoms metformin 500 mg tablet extended release 24 hr See Rx Instructions .ROUTE .COMPLEX Qty: 30 5RF Dose Instruction: TAKE 1 TABLET BY MOUTH ONCE DAILY Rx Instructions: TAKE 1 TABLET BY MOUTH ONCE DAILY Referrals Follow up/Referrals: Shayy Feliciano APRN [Primary Care Provider] - See instructions Activity Restrictions/Add. Instructions Additional Instructions/Restrictions: You were evaluated in the ER. You are appropriate for discharge at this time. Take the prescribed methocarbamol for the next 5 days if needed for muscle spasm. Continue taking Tylenol ibuprofen, do not exceed the recommended doses on the bottles. Make an appointment with your primary care physician for reevaluation in 2 to 3 days, return to the ER with new, worsening, or otherwise concerning symptoms. Clinical Impressions Clinical Impression: Lumbar paraspinal muscle spasm Discharge ED Provider: Amor Dee Adult HPI General Chief complaint: PAIN Stated complaint: Middle back pain radiating down legs Time Seen by Provider: 05/29/24 23:00 Mode of Arrival: Family Vehicle Source of Information: Patient Limitations: No Limitations Description of Symptoms (Recalled from ER Triage Doc. by RN): 53 yo female presents with CC of back pain radiating down into BLE. Patient has a PMH of fibro and RA, HTN. Patient denies dysuria, bowel issues. No trauma. History of Present Illness HPI narrative: 53-year-old female with a history of fibromyalgia and rheumatoid arthritis presents to the ER for complaints of right-sided lumbar back pain. It radiates slightly around her right side and into the lower extremities. She has full strength, no bowel or bladder incontinence, no acute injury. She states the symptoms started this morning and gradually worsened through the day. She took ibuprofen and has tried a lidocaine patch without improvement. Patient reports a history of kidney stones but states this pain is completely different. Patient also has a history of cholecystectomy. Patient reports this pain is the same quality as her baseline fibromyalgia pain, but worse than normal. She gets nausea from the pain, but has not had any vomiting, diarrhea, fevers, or other associated symptoms. She denies chest pain or difficulty breathing. Related Data Home Medications Medication Instructions Recorded Confirmed ibuprofen 600 mg tablet 600 mg PO PRN 01/26/22 05/07/24 blood sugar diagnostic (OneTouch #10 ea 08/22/23 05/07/24 Verio test strips) triamcinolone acetonide 55 mcg 1 spray intranasal DAILY PRN 08/22/23 05/07/24 nasal spray aerosol fluticasone propionate 50 1 spray intranasal DAILY PRN 10/30/23 05/07/24 mcg/actuation nasal spray,suspension Previous Rx's Medication Instructions Recorded dapagliflozin propanediol 5 mg 5 mg PO DAILY 30 days #30 tabs 08/22/23 tablet (Farxiga) escitalopram oxalate 20 mg tablet 20 mg PO DAILY 30 days #30 tabs 08/22/23 losartan 25 mg tablet 25 mg PO DAILY 30 days #30 tabs 08/22/23 omeprazole 40 mg capsule,delayed 40 mg PO DAILY 30 days #30 caps 08/22/23 release albuterol sulfate 90 mcg/actuation 2 puff inhalation Q4-6H PRN 08/27/23 aerosol inhaler (ProAir HFA) shortness of breath or wheezing 30 days #8.5 grams olopatadine 0.1 % eye drops 1 drp ophthalmic (eye) BID #5 mL 10/30/23 gabapentin 300 mg capsule 300 mg PO BID #60 caps 11/01/23 buspirone 7.5 mg tablet See Rx Instructions .Route 11/10/23 .COMPLEX #60 tabs cetirizine 10 mg tablet See Rx Instructions .Route 01/09/24 .COMPLEX #30 tabs alprazolam 0.25 mg tablet 0.25 mg PO BID PRN anxiety #20 tabs 02/15/24 montelukast 10 mg tablet See Rx Instructions .Route 02/26/24 .COMPLEX #30 tabs semaglutide 0.25 mg or 0.5 mg (2 See Rx Instructions .Route 04/07/24 mg/3 mL) subcutaneous pen injector .COMPLEX #3 mL (Ozempic) triamterene 37.5 See Rx Instructions .Route 04/07/24 mg-hydrochlorothiazide 25 mg tablet .COMPLEX #30 tabs prednisone 10 mg tablets in a dose 10 mg PO DIRECTED 6 days #21 04/25/24 pack tabs ropinirole 1 mg tablet 1 mg PO BID rls 30 days #60 tabs 04/30/24 metformin 500 mg tablet,extended See Rx Instructions .Route 05/06/24 release 24 hr .COMPLEX #30 tabs levofloxacin 500 mg tablet 500 mg PO QDAY 10 days #10 tabs 05/07/24 prednisone 5 mg tablet 5 mg PO DAILY #30 tabs 05/07/24 methocarbamol 750 mg tablet 750 mg PO QID PRN muscle spasm #20 05/30/24 tabs Allergies Allergy/AdvReac Type Severity Reaction Status Date / Time No Known Allergies Allergy Verified 05/07/24 08:25 [facility] Disclaimer: The information contained in this section may have been updated after the patient was seen, as this information can be updated by other users. Medical History Fibromyalgia MEGHANN (obstructive sleep apnea) Posttraumatic stress disorder RLS (restless legs syndrome) Type 2 diabetes mellitus Surgical History H/O: Family History Other Diabetes Social History Smoking Status: Unknown if ever smoked second hand exposure: No alcohol intake: never counseling given: No substance use type: denies use counseling given: No current occupational status: other Travel in the last 8 weeks: None adopted: No caregiver/support person: Yes (she has her 2 grand-daughters; they are 11 and 8; her son's daughters) foster care: No household members: family housing: house lives independently: No number of children: 2 number of grandchildren: 8 education level: high school current occupation: she has been a private sitter current occupational exposures/hazards: No caffeine: Yes physical activity: none working smoke detector in home: Yes fire extinguisher in home: Yes carbon monox detector in home: No firearms in home: No do you feel safe at home: Yes victim of physical abuse: No victim of emotional abuse: No victim of sexual abuse: No would you like helpful sources: No ROS Obtained: Yes All systems reviewed & no additional complaints except as documented Constitutional Constitutional: Denies chills, Denies fever(s), Denies headache(s) and Denies weakness Eyes Eyes: Denies change in vision ENT Ears, Nose, Mouth, and Throat: Denies dizziness, Denies headache(s), Denies nasal congestion and Denies sore throat Cardiovascular Cardiovascular: Denies chest pain, Denies dyspnea and Denies leg edema Respiratory Respiratory: Denies cough and Denies dyspnea Gastrointestinal Gastrointestingal: Reports nausea; Denies abdominal pain, constipation, diarrhea or vomiting Genitourinary Female Genitourinary: Denies dysuria and Denies hematuria Musculoskeletal Musculoskeletal: Denies arthralgias, Reports back pain, Reports myalgias, Denies numbness and Denies tingling Integumentary/Breasts Skin/Breast: Denies change in pigmentation Neurologic Neurologic: Denies dizziness, Denies headache(s), Denies numbness, Denies tingling and Denies weakness Physical Exam General General appearance: alert and in no apparent distress Head Head exam: atraumatic and normocephalic Eye Eye exam: Present PERRL and EOMI ENT ENT exam: Present mucous membranes moist Neck Neck exam: Present normal inspection and full ROM Chest Chest inspection: Present symmetric chest wall rise Respiratory Respiratory exam: Absent respiratory distress or stridor Cardiovascular Cardiovascular exam: Present regular rate and normal rhythm Abdominal Exam Abdominal exam: Present soft; Absent distention, tenderness, guarding or rebound Extremities Exam Extremities exam: Present full ROM Back Exam Back exam: Present muscle spasm and paraspinal tenderness (With right lumbar paraspinal muscle spasm); Absent CVA tenderness (R), CVA tenderness (L) or vertebral tenderness Neurological Exam Neurological exam: Present alert, oriented X3 and other (Full strength in bilateral lower extremities, no paralysis); Absent motor sensory deficit Psychiatric Psychiatric exam: Present normal affect and normal mood Skin Skin exam: Present warm and dry Medical Decision Making Medical Records Medical records reviewed: Yes I reviewed the patient's medical records. MR Comment: Most recent primary care visit was for COVID-19 follow-up in April after having completed a Z-Evaristo. Varun Inquiry Pt receiving controlled substance: No Vital Signs: 05/29/24 22:52 05/30/24 00:06 Temperature 98.0 F 98.7 F Temperature Source Oral Oral Pulse Rate 93 H Pulse Rate [Right Brachial] 89 Respiratory Rate 15 18 Blood Pressure 123/63 Blood Pressure [Right Arm] 156/86 H Blood Pressure Mean [Right Arm] 109 Blood Pressure Source Automatic Cuff Blood Pressure Source [Right Arm] Automatic Cuff Blood Pressure Position Supine Blood Pressure Position [Right Arm] Sitting 02 Sat by Pulse Oximetry 96 Oxygen Delivery Method Room Air Room Air Orders (Tests/Meds): ED MEDICATIONS Discontinued Medications Generic Name Dose Route Start Last Admin Trade Name Chalo PRN Reason Stop Dose Admin Acetaminophen 1,000 mg 05/29/24 23:20 05/29/24 23:27 Acetaminophen 500mg Tab PO 05/29/24 23:21 1,000 mg ONCE ONE Administration Ketorolac Tromethamine 30 mg 05/29/24 23:20 05/29/24 23:27 Ketorolac 30mg/Ml Vial IM 05/29/24 23:21 30 mg ONCE ONE Administration Methocarbamol 1,500 mg 05/29/24 23:21 05/29/24 23:27 Methocarbamol 500mg Tablet PO 05/29/24 23:22 1,500 mg ONCE ONE Administration Medical Decision Narrative: In summary, this 53-year-old female presents to the emergency department today with right-sided lumbar back pain radiating into the legs. On initial evaluation patient is hemodynamically stable, afebrile patient has tenderness of the right lumbar paraspinal muscles as well as around the right side without any tenderness in the abdomen, no CVA tenderness. Differential diagnosis includes but is not limited to muscle spasm, fibromyalgia flare, I considered the possibility of renal colic, however patient does not have CVA tenderness, no changes in urinary habits, dysuria, or hematuria, and she also states this pain is completely different than prior kidney stone pain additionally given the distribution of her pain I did briefly consider shingles however there is no rash, skin is not exquisitely sensitive, she has tenderness to muscular palpation not to skin touch. Patient has no findings of cauda equina, no red flag symptoms such as paralysis, bowel or bladder incontinence, or difficulty using the restroom. I do not believe patient requires any imaging at this time given the gradual onset of her symptoms, reproducibility with palpation, and history of fibromyalgia. Patient received Toradol, Tylenol, Robaxin. On reassessment patient has had significant improvement of symptoms. She is appropriate for discharge at this time. I prescribed methocarbamol for outpatient management. Patient was given instructions on symptomatic management, follow up instructions, and return precautions for the emergency department. Patient indicated understanding and was discharged in stable condition. Critical Care Critical Care Time Critical Care Time: No
[2024-05-29] MEDS: KETOROLAC 30MG/ML VIAL 30 MG IM (23:27)
[2024-05-29] MEDS: ACETAMINOPHEN 500MG TAB 1000 MG PO (23:27)
[2024-05-29] MEDS: METHOCARBAMOL 500MG TABLET 1500 MG PO (23:27)
[2024-05-30 00:06] VITALS: BP 123/63; PULSE 93; RESP 18; TEMP 37.1; O2SAT 97
== END 2024-05-30 00:11 | disposition home or self-care (01) ==
PROVIDERS: Emergency Provider Emergency Medicine; PCP Nurse Practitioner Family
DX: M62.830 Muscle spasm of back (principal); M54.41 Lumbago with sciatica, right side; Z87.442 Personal history of urinary calculi; E11.9 Type 2 diabetes mellitus without complications; Z79.84 Long term (current) use of oral hypoglycemic drugs; Z79.85 Long-term (current) use of injectable non-insulin antidiabetic drugs
CPT/HCPCS: 96372; 99283; J1885

== ENCOUNTER 2024-06-19 09:57 | Outpatient (CLI) | payer OTHER, SELFPAY ==
[2024-06-19 10:13] LABS: Basophils % 0.4 % (0.1-2.0); Eosinophils # 0.2 K/mm3 (0.0-0.4); Eosinophils % 1.6 % (0.1-12.0); Hematocrit 41.6 % (37.0-47.0); Hemoglobin 13.1 g/dL (12.2-16.2); Lymphocytes # 2.6 K/mm3 (0.7-4.5); Lymphocytes % 24.3 % (10-50); Mean Corpuscular HGB Conc 31.4 g/dL (31.8-35.4); Mean Corpuscular Volume 92.4 fl (81-99); Mean Platelet Volume 7.9 fl (7.4-10.4); Monocytes # 0.5 K/mm3 (0.1-1.0); Monocytes % 4.4 % (1.7-9.3); Neutrophils # 7.3 K/mm3 (1.8-7.8); Neutrophils % 69.3 % (37.0-80.0); Platelet Count 320 K/mm3 (142-424); Red Cell Distribution Width 15.5 % (11.5-17.5); White Blood Count 10.6 K/mm3 (4.8-10.8)
[2024-06-19 22:29] LABS: Iron 88 ug/dL (37-170)
[2024-06-19 22:38] LABS: Total Iron Binding Capacity 352 ug/dL (265-497)
== END 2024-06-19 23:59 | disposition home or self-care (01) ==
LOC: LAB 09:58
PROVIDERS: PCP Nurse Practitioner Family; Visit Provider Nurse Practitioner Family
DX: E83.10 Disorder of iron metabolism, unspecified (principal); G25.81 Restless legs syndrome
CPT/HCPCS: 82728; 83540; 83550; 85025

== ENCOUNTER 2024-10-03 10:37 | Outpatient (CLI) | payer OTHER, SELFPAY ==
[2024-10-03 11:21] LABS: Basophils # 0.1 K/mm3 (0-0.2); Basophils % 0.4 % (0.1-2.0); Eosinophils # 0.2 K/mm3 (0.0-0.4); Eosinophils % 1.7 % (0.1-12.0); Hematocrit 40.1 % (37.0-47.0); Lymphocytes # 3.6 K/mm3 (0.7-4.5); Lymphocytes % 28.6 % (10-50); Mean Corpuscular HGB Conc 32.4 g/dL (31.8-35.4); Mean Corpuscular Hemoglobin 29.7 pg (27.0-31.2); Mean Corpuscular Volume 91.5 fl (81-99); Mean Platelet Volume 7.7 fl (7.4-10.4); Monocytes # 0.6 K/mm3 (0.1-1.0); Neutrophils # 8.1 K/mm3 (1.8-7.8); Neutrophils % 64.4 % (37.0-80.0); Platelet Count 325 K/mm3 (142-424); Red Blood Count 4.38 M/mm3 (4.20-5.40); Red Cell Distribution Width 14.6 % (11.5-17.5); White Blood Count 12.6 K/mm3 (4.8-10.8)
[2024-10-03 11:51] LABS: Alanine Aminotransferase 17 U/L (12-78); Albumin/Globulin Ratio 1.3 (1.1-1.8); Alkaline Phosphatase 87 U/L (38-126); Anion Gap 12.3 mEq/L (5-15); Aspartate Amino Transferase 22 U/L (14-36); Bilirubin,Total 0.5 mg/dl (0.2-1.3); Blood Urea Nitrogen 14 mg/dl (7-17); Calcium 9.1 mg/dl (8.4-10.2); Carbon Dioxide 25 mmol/L (22.0-30.0); Chloride 108 mmol/L (98-107); Chol/HDL Ratio 3.1 (1-3.5); Cholesterol 164 mg/dl (140-200); Estimated Glomerular Filt Rate 129 ml/min (>60); GFR (African American) 156 ML/MIN (>60); Globulin 3.2 g/dL (1.3-3.2); Glucose 91 mg/dl (74-100); HDL Cholesterol 53 mg/dl (40-60); Potassium 4.3 mmoL/L (3.5-5.1); Sodium 141 mmol/L (136-145); Total Protein,Serum 7.2 g/dl (6.3-8.2); Triglycerides 82 mg/dl (30-150); VLDL Cholesterol 16 mg/dL (0-40)
[2024-10-03 12:02] LABS: Direct LDL Cholesterol 99.52 mg/dL (100-129)
[2024-10-03 12:06] LABS: 25-OH Vitamin D, Total 19.9 ng/mL (30-100)
[2024-10-03 12:23] LABS: Thyroid Stimulating Hormone 1.33 uIU/mL (0.465-4.68)
[2024-10-03 12:27] LABS: Ferritin 44.7 ng/ml (11.1-264)
[2024-10-03 12:41] LABS: Vitamin B12 379 pg/mL (239-931)
[2024-10-03 14:05] LABS: Microalbumin/Creatinine Ratio 140.1
[2024-10-03 14:11] LABS: Creatinine,Urine Random 62 mg/dL (Not Estab.)
[2024-10-03 14:39] LABS: HIV (1&2) Antibody Rapid NONREACTIVE (NONREACTIVE)
[2024-10-04 09:14] LABS: HCV Ab Non Reactive (Non Reactive)
== END 2024-10-03 23:59 | disposition home or self-care (01) ==
LOC: LAB 10:38
PROVIDERS: PCP Nurse Practitioner Family; Visit Provider Nurse Practitioner Family
DX: E11.9 Type 2 diabetes mellitus without complications (principal); Z11.59 Encounter for screening for other viral diseases; Z11.4 Encounter for screening for human immunodeficiency virus [HIV]; E55.9 Vitamin D deficiency, unspecified; N90.89 Other specified noninflammatory disorders of vulva and perineum; E66.01 Morbid (severe) obesity due to excess calories; Z68.43 Body mass index [BMI] 50.0-59.9, adult; I10 Essential (primary) hypertension
CPT/HCPCS: 36415; 80050; 80053; 80061; 82043; 82306; 82570; 82607; 82728; 83036; 84443; 85025; 86803; 87389

== ENCOUNTER 2024-11-11 15:24 | Inpatient (IN) | payer OTHER, SELFPAY ==
[2024-11-11] VITALS (9 sets, daily range): BP systolic 124–147; BP diastolic 71–84; PULSE 77–96; RESP 19–24; TEMP 36.8–37.1; O2SAT 90–95; BMI 50.3
--- NOTE | 2024-11-11 15:36 | ED_ITS ---
<Statement entered by Melany Figueroa DO - 11/11/24 19:00> I was consulted by the NANY, and we discussed the complexity of the problems being addressed. I approved the treatment and management plan for this patient's care in the emergency department, thus performing a substantive portion of the medical decision making. Melany Figueroa DO Discharge Plan Disposition Patient Disposition: Admitted Condition: Serious Prescriptions Prescriptions: No Action triamcinolone acetonide 55 mcg aerosol,spray 1 spray intranasal DAILY PRN Rinvoq 15 mg tablet extended release 24 hr PO alprazolam 0.25 mg tablet 0.25 mg PO BID PRN (Reason: anxiety) Qty: 20 0RF Farxiga 5 mg tablet See Rx Instructions .ROUTE .COMPLEX Qty: 30 5RF Dose Instruction: TAKE 1 TABLET BY MOUTH ONCE DAILY Rx Instructions: TAKE 1 TABLET BY MOUTH ONCE DAILY escitalopram oxalate 20 mg tablet See Rx Instructions .ROUTE .COMPLEX Qty: 30 5RF Dose Instruction: TAKE 1 TABLET BY MOUTH ONCE DAILY Rx Instructions: TAKE 1 TABLET BY MOUTH ONCE DAILY losartan 25 mg tablet See Rx Instructions .ROUTE .COMPLEX Qty: 30 5RF Dose Instruction: TAKE 1 TABLET BY MOUTH ONCE DAILY Rx Instructions: TAKE 1 TABLET BY MOUTH ONCE DAILY metformin 500 mg tablet extended release 24 hr See Rx Instructions .ROUTE .COMPLEX Qty: 30 5RF Dose Instruction: TAKE 1 TABLET BY MOUTH ONCE DAILY Rx Instructions: TAKE 1 TABLET BY MOUTH ONCE DAILY Ozempic 0.25 mg or 0.5 mg (2 mg/3 mL) pen injector See Rx Instructions .ROUTE .COMPLEX Qty: 3 1RF Dose Instruction: INJECT 0.5 MG SUBCUTANEOUSLY ONCE WEEKLY Rx Instructions: INJECT 0.5 MG SUBCUTANEOUSLY ONCE WEEKLY omeprazole 40 mg capsule,delayed release(DR/EC) See Rx Instructions .ROUTE .COMPLEX Qty: 30 5RF Dose Instruction: TAKE 1 CAPSULE BY MOUTH ONCE DAILY Rx Instructions: TAKE 1 CAPSULE BY MOUTH ONCE DAILY ibuprofen 800 mg tablet 800 mg PO Q8H Qty: 90 1RF (DME) OneTouch Ultra Test Strip See Rx Instructions .Route Qty: 100 3RF Rx Instructions: As directed daily (DME) blood-glucose meter [OneTouch Ultra2 Meter] Misc See Rx Instructions .Route Qty: 1 0RF Rx Instructions: As directed (DME) lancets [OneTouch UltraSoft 2 Lancet] 30 gauge misc See Rx Instructions .Route Qty: 100 3RF Rx Instructions: As directed daily albuterol sulfate [ProAir HFA] 90 mcg/actuation HFA aerosol inhaler 2 puff INHALATION Q4-6H PRN (Reason: shortness of breath or wheezing) 30 Days Qty: 8.5 2RF cetirizine 10 mg tablet See Rx Instructions .ROUTE .COMPLEX Qty: 30 9RF Dose Instruction: TAKE 1 TABLET BY MOUTH ONCE DAILY Rx Instructions: TAKE 1 TABLET BY MOUTH ONCE DAILY montelukast 10 mg tablet See Rx Instructions .ROUTE .COMPLEX Qty: 30 8RF Dose Instruction: TAKE 1 TABLET BY MOUTH ONCE DAILY Rx Instructions: TAKE 1 TABLET BY MOUTH ONCE DAILY olopatadine 0.1 % drops 1 drp OPHTHALMIC BID Qty: 5 0RF buspirone 7.5 mg tablet See Rx Instructions .ROUTE .COMPLEX Qty: 60 0RF Dose Instruction: TAKE 1 TABLET BY MOUTH TWICE DAILY MAY CAUSE DROWSINESS Rx Instructions: TAKE 1 TABLET BY MOUTH TWICE DAILY MAY CAUSE DROWSINESS triamterene-hydrochlorothiazid 37.5-25 mg tablet See Rx Instructions .ROUTE .COMPLEX Qty: 30 0RF Dose Instruction: TAKE 1 TABLET BY MOUTH EVERY MORNING Rx Instructions: TAKE 1 TABLET BY MOUTH EVERY MORNING Horizant 600 mg tablet extended release 600 mg PO HS Qty: 30 5RF Rx Instructions: administer daily at approximately 5 PM with food/evening meal prednisone 10 mg tablets,dose pack 10 mg PO DIRECTED Qty: 21 0RF Rx Instructions: see taper instructions levofloxacin 500 mg tablet 500 mg PO DAILY 7 Days Qty: 7 0RF methocarbamol 750 mg tablet 750 mg PO QID PRN (Reason: muscle spasm) Qty: 20 0RF Referrals Follow up/Referrals: Shayy Feliciano APRN [Primary Care Provider] - See instructions Clinical Impressions Clinical Impression: Acute hypoxemic respiratory failure, COPD with acute exacerbation Print Language Print Language: Greenlandic Discharge ED Provider: Melany Figueroa General Adult HPI <SHRUTHI Hollins - Last Filed: 11/11/24 17:22> General Chief complaint: Shortness of Breath/Dyspnea Stated complaint: SOA, weakness Time Seen by Provider: 11/11/24 15:36 History of Present Illness HPI narrative: Patient presents for evaluation of dyspnea. Patient states granddaughter recently tested positive for RSV. Patient gives a history of 2 to 3 days of increasing shortness of breath. She denies however fever chills hemoptysis hematochezia melena nausea vomit diarrhea. Patient is a smoker but not on home O2, type 2 diabetes mellitus on oral medications, morbid obesity, anxiety, Related Data Home Medications ?Medication ?Instructions ?Recorded ?Confirmed triamcinolone acetonide 55 mcg 1 spray intranasal DAILY PRN 08/22/23 10/29/24 nasal spray aerosol upadacitinib 15 mg tablet,extended mg PO 06/23/24 10/29/24 release 24 hr (Rinvoq) Previous Rx's ?Medication ?Instructions ?Recorded albuterol sulfate 90 mcg/actuation 2 puff inhalation Q4-6H PRN 08/27/23 aerosol inhaler (ProAir HFA) shortness of breath or wheezing 30 days #8.5 grams cetirizine 10 mg tablet See Rx Instructions .Route 01/09/24 .COMPLEX #30 tabs montelukast 10 mg tablet See Rx Instructions .Route 02/26/24 .COMPLEX #30 tabs methocarbamol 750 mg tablet 750 mg PO QID PRN muscle spasm #20 05/30/24 tabs alprazolam 0.25 mg tablet 0.25 mg PO BID PRN anxiety #20 tabs 08/21/24 olopatadine 0.1 % eye drops 1 drp ophthalmic (eye) BID #5 mL 09/22/24 blood sugar diagnostic (OneTouch #100 ea 10/03/24 Ultra Test strips) blood-glucose meter (OneTouch #1 ea 10/03/24 Ultra2 Meter) dapagliflozin propanediol 5 mg See Rx Instructions .Route 10/03/24 tablet (Farxiga) .COMPLEX #30 tabs escitalopram oxalate 20 mg tablet See Rx Instructions .Route 10/03/24 .COMPLEX #30 tabs ibuprofen 800 mg tablet 800 mg PO Q8H #90 tabs 10/03/24 lancets 30 gauge (OneTouch #100 ea 10/03/24 UltraSoft 2 Lancet) losartan 25 mg tablet See Rx Instructions .Route 10/03/24 .COMPLEX #30 tabs metformin 500 mg tablet,extended See Rx Instructions .Route 10/03/24 release 24 hr .COMPLEX #30 tabs omeprazole 40 mg capsule,delayed See Rx Instructions .Route 10/03/24 release .COMPLEX #30 caps semaglutide 0.25 mg or 0.5 mg (2 See Rx Instructions .Route 10/03/24 mg/3 mL) subcutaneous pen injector .COMPLEX #3 mL (Ozempic) buspirone 7.5 mg tablet See Rx Instructions .Route 11/03/24 .COMPLEX #60 tabs triamterene 37.5 See Rx Instructions .Route 11/03/24 mg-hydrochlorothiazide 25 mg tablet .COMPLEX #30 tabs gabapentin enacarbil 600 mg 600 mg PO HS RLS #30 tabs 11/05/24 tablet,extended release (Horizant ER) levofloxacin 500 mg tablet 500 mg PO DAILY 7 days #7 tabs 11/07/24 prednisone 10 mg tablets in a dose 10 mg PO DIRECTED #21 tabs 11/07/24 pack Allergies Allergy/AdvReac Type Severity Reaction Status Date / Time No Known Allergies Allergy Verified 10/29/24 13:03 [facility] <SHRUTHI Hollins - Last Filed: 11/11/24 17:22> [facility] Disclaimer: The information contained in this section may have been updated after the patient was seen, as this information can be updated by other users. Medical History (Updated 11/11/24 @ 17:11 by SHRUTHI Hollins) Vulvar lesion Posttraumatic stress disorder Fibromyalgia Type 2 diabetes mellitus RLS (restless legs syndrome) MEGHANN (obstructive sleep apnea) Surgical History H/O: Family History Other Diabetes Social History Smoking Status: Never smoker second hand exposure: No alcohol intake: never counseling given: No substance use type: denies use counseling given: No current occupational status: other Travel in the last 8 weeks: None adopted: No caregiver/support person: Yes (she has her 2 grand-daughters; they are 11 and 8; her son's daughters) foster care: No household members: family housing: house lives independently: No number of children: 2 number of grandchildren: 8 education level: high school current occupation: she has been a private sitter current occupational exposures/hazards: No caffeine: Yes physical activity: none working smoke detector in home: Yes fire extinguisher in home: Yes carbon monox detector in home: No firearms in home: No do you feel safe at home: Yes victim of physical abuse: No victim of emotional abuse: No victim of sexual abuse: No would you like helpful sources: No Have you lived/traveled outside [place] in past 30 days?: No Contact w/someone who lives/traveled outside [place] past 30 days?: No Exposure to someone with infectious disease in past 14 days?: No Do you have a fever (greater than 100.4 F or 38 C)?: No Have you tested positive for COVID-19: No Exposed to someone with COVID-19 in past 14 days?: No Do you have a sore throat?: No Do you have a cough?: No Do you have any weakness?: Yes Do you have any diarrhea?: No Are you experiencing any unusual bleeding?: No Do you have any muscle aches/pain?: No Do you have any abdominal pain?: No Are you experiencing loss of taste or smell?: No Other Medical History Have you received the Flu Vaccine for this season: No Have you received the Pneumonia Vaccine: No <SHRUTHI Hollins - Last Filed: 11/11/24 17:22> ROS Obtained: Yes Systems reviewed as appropriate & no additional complaints except as documented Physical Exam <SHRUTHI Hollins - Last Filed: 11/11/24 17:22> General General appearance: alert and in no apparent distress Respiratory Respiratory exam: Present wheezes; Absent normal lung sounds bilaterally or respiratory distress Cardiovascular Cardiovascular exam: Present regular rate Neurological Exam Neurological exam: Present alert and oriented X3 Medical Decision Making <SHRUTHI Hollins - Last Filed: 11/11/24 17:22> Medical Records Medical records reviewed: Yes I reviewed the patient's medical records. Screening: Per USPSTF and CDC recommendations, given the prevalence of disease in our region, it is our hospital?s policy to screen for HIV and viral Hepatitis for all patients aged 18 and over and those with ongoing risk factors. Varun Inquiry Pt receiving controlled substance: No Vital Signs: 11/11/24 15:40 11/11/24 16:29 Temperature 98.5 F Temperature Source Oral Pulse Rate 81 Pulse Rate [Left Radial] 96 H Respiratory Rate 20 Blood Pressure 127/71 Blood Pressure [Right Arm] 147/78 H Blood Pressure Mean [Right Arm] 101 02 Sat by Pulse Oximetry 90 L 94 L Oxygen Delivery Method Room Air Nasal Cannula Oxygen Flow Rate (LPM) 2 Lab Data Lab results reviewed: Yes I reviewed the patient's lab results. Lab Results 11/11/24 15:43: WBC 6.8, RBC 4.27, Hgb 12.2, Hct 38.9, MCV 91.1, MCH 28.6, MCHC 31.4 L, RDW 14.5, Plt Count 270, MPV 9.7, Neut % (Auto) 79.1, Lymph % (Auto) 11.6, Worth % (Auto) 8.1, Eos % (Auto) 0.0 L, Baso % (Auto) 0.3, Neut # (Auto) 5.3, Lymph # (Auto) 0.8, Worth # (Auto) 0.6, Eos # (Auto) 0.0, Baso # (Auto) 0.0, PT 11.1, INR 0.99, D-Dimer 0.93 H, Sodium 136, Potassium 4.4, Chloride 101, Carbon Dioxide 30, Anion Gap 9.4, BUN 13, Creatinine 0.60, Estimated Creat Clear 84, Estimated GFR 104, Est GFR ( Amer) 126, Glucose 189 H, Calcium 9.4, Magnesium 1.9, Total Bilirubin 0.5, AST 48 H, ALT 34, Alkaline Phosphatase 64, N T-Pro-B Natriuret Pep 144 H, Total Protein 7.6, Albumin 4.2, Globulin 3.4 H, Albumin/Globulin Ratio 1.2, Procalcitonin 0.093 11/11/24 15:49: VBG pH 7.42 H, VBG pCO2 44.1, VBG pO2 65.8 H, VBG HCO3 28.2, VBG Total CO2 29.5 H, VBG O2 Saturation 93.4 H, VBG Base Excess 3.7 H, VBG Lactic Acid 2.2 H 11/11/24 15:43 11/11/24 15:43 Orders (Tests/Meds): ED MEDICATIONS Discontinued Medications Generic Name Dose Route Start Last Admin Trade Name Freq PRN Reason Stop Dose Admin Acetaminophen 1,000 mg 11/11/24 15:47 11/11/24 16:09 Acetaminophen 500mg Tab PO 11/11/24 15:48 1,000 mg ONCE ONE Administration Albuterol/Ipratropium 3 ml 11/11/24 15:49 11/11/24 16:08 Ipratropium/Albuterol 3 Ml Neb IH 11/11/24 15:50 3 ml ONCE ONE Administration Ibuprofen 800 mg 11/11/24 15:49 11/11/24 16:09 Ibuprofen 400 Mg Tablet PO 11/11/24 15:50 800 mg ONCE ONE Administration Methylprednisolone Sodium Succinate 125 mg 11/11/24 15:47 11/11/24 16:09 Methylprednisolone Sod Succ 125mg Vial IV 11/11/24 15:48 125 mg ONCE ONE Administration ORDERS Category Date Time Status Consult to Physician [CONS] Routine Cons 11/11/24 17:12 Ordered Chest XR 2 view (NOT portable) [XR chest 2V] Stat Exams 11/11/24 15:47 Completed BNP [NT Pro Brain Natriuretic Pep.] Stat Lab 11/11/24 15:43 Completed CBC w/Auto Diff [Complete Blood Count Auto Diff] Stat Lab 11/11/24 15:43 Completed CMP [Comprehensive Metabolic Panel] Stat Lab 11/11/24 15:43 Completed D-Dimer Stat Lab 11/11/24 15:43 Completed Full Resp Panel w/COVID ([facility]) Routine Lab 11/11/24 16:00 Received INR [Prothrombin Time INR] Stat Lab 11/11/24 15:43 Completed Magnesium Stat Lab 11/11/24 15:43 Completed Procalcitonin Stat Lab 11/11/24 15:43 Completed Troponin I Q3H Lab 11/11/24 20:15 Ordered Troponin I Q3H Lab 11/11/24 23:15 Ordered VBG [Venous Blood Gas] Stat RT 11/11/24 15:49 Completed Medical Decision Narrative: In summary patient is a 54-year-old female who presents to the emergency department for evaluation of dyspnea. Patient is hemodynamically stable upon arrival, afebrile. Physical exam is remarkable for breath sounds that show wheezes in all 4 pagan with diminished breath sounds at the bases, increased work of breathing but no accessory muscle use, normal sinus rhythm on the bedside monitor satting in the mid 80s on room air at the time of my exam but does correct to above 94% with 2 L by nasal cannula.. Differential diagnosis includes pneumonia versus PE versus COPD exacerbation etc. Initial workup will be conducted with hematologic labs plain film chest x-ray D-dimer. Initial interventions include DuoNeb Solu-Medrol supplemental O2 and continuous pulse oximetry. Initial workup reviewed by me shows her white count is normal with no left shift D-dimer is 0.93 and per years criteria PE is excluded, VBG shows a venous pH of 7.42 pCO2 of 44.1 with a venous lactic acid of 2.2 the remainder of her hematologic labs are nonactionable and my informal interpretation of her plain film chest x-ray shows no acute processes.. Upon repeat evaluation I had the patient ambulate off of oxygen and despite DuoNeb Decadron and aggressive pulmonary toilet in the emergency department she is still desaturating to 87% with light exertion. Given this I had interactive discussion with hospital medicine regarding patient management and patient will be admitted for further evaluation and care. <Melany Figueroa, DO - Last Filed: 11/11/24 16:09> Vital Signs: 11/11/24 15:40 11/11/24 16:29 Temperature 98.5 F Temperature Source Oral Pulse Rate 81 Pulse Rate [Left Radial] 96 H Respiratory Rate 20 Blood Pressure 127/71 Blood Pressure [Right Arm] 147/78 H Blood Pressure Mean [Right Arm] 101 02 Sat by Pulse Oximetry 90 L 94 L Oxygen Delivery Method Room Air Nasal Cannula Oxygen Flow Rate (LPM) 2 Lab Data Lab Results 11/11/24 15:43: WBC 6.8, RBC 4.27, Hgb 12.2, Hct 38.9, MCV 91.1, MCH 28.6, MCHC 31.4 L, RDW 14.5, Plt Count 270, MPV 9.7, Neut % (Auto) 79.1, Lymph % (Auto) 11.6, Worth % (Auto) 8.1, Eos % (Auto) 0.0 L, Baso % (Auto) 0.3, Neut # (Auto) 5.3, Lymph # (Auto) 0.8, Worth # (Auto) 0.6, Eos # (Auto) 0.0, Baso # (Auto) 0.0, PT 11.1, INR 0.99, D-Dimer 0.93 H, Sodium 136, Potassium 4.4, Chloride 101, Carbon Dioxide 30, Anion Gap 9.4, BUN 13, Creatinine 0.60, Estimated Creat Clear 84, Estimated GFR 104, Est GFR ( Amer) 126, Glucose 189 H, Calcium 9.4, Magnesium 1.9, Total Bilirubin 0.5, AST 48 H, ALT 34, Alkaline Phosphatase 64, N T-Pro-B Natriuret Pep 144 H, Total Protein 7.6, Albumin 4.2, Globulin 3.4 H, Albumin/Globulin Ratio 1.2, Procalcitonin 0.093 11/11/24 15:49: VBG pH 7.42 H, VBG pCO2 44.1, VBG pO2 65.8 H, VBG HCO3 28.2, VBG Total CO2 29.5 H, VBG O2 Saturation 93.4 H, VBG Base Excess 3.7 H, VBG Lactic Acid 2.2 H Orders (Tests/Meds): ED MEDICATIONS Discontinued Medications Generic Name Dose Route Start Last Admin Trade Name Freq PRN Reason Stop Dose Admin Acetaminophen 1,000 mg 11/11/24 15:47 11/11/24 16:09 Acetaminophen 500mg Tab PO 11/11/24 15:48 1,000 mg ONCE ONE Administration Albuterol/Ipratropium 3 ml 11/11/24 15:49 11/11/24 16:08 Ipratropium/Albuterol 3 Ml Neb IH 11/11/24 15:50 3 ml ONCE ONE Administration Ibuprofen 800 mg 11/11/24 15:49 11/11/24 16:09 Ibuprofen 400 Mg Tablet PO 11/11/24 15:50 800 mg ONCE ONE Administration Methylprednisolone Sodium Succinate 125 mg 11/11/24 15:47 11/11/24 16:09 Methylprednisolone Sod Succ 125mg Vial IV 11/11/24 15:48 125 mg ONCE ONE Administration ORDERS Category Date Time Status Consult to Physician [CONS] Routine Cons 11/11/24 17:12 Ordered Chest XR 2 view (NOT portable) [XR chest 2V] Stat Exams 11/11/24 15:47 Completed BNP [NT Pro Brain Natriuretic Pep.] Stat Lab 11/11/24 15:43 Completed CBC w/Auto Diff [Complete Blood Count Auto Diff] Stat Lab 11/11/24 15:43 Completed CMP [Comprehensive Metabolic Panel] Stat Lab 11/11/24 15:43 Completed D-Dimer Stat Lab 11/11/24 15:43 Completed Full Resp Panel w/COVID ([facility]) Routine Lab 11/11/24 16:00 Received INR [Prothrombin Time INR] Stat Lab 11/11/24 15:43 Completed Magnesium Stat Lab 11/11/24 15:43 Completed Procalcitonin Stat Lab 11/11/24 15:43 Completed Troponin I Q3H Lab 11/11/24 20:15 Ordered Troponin I Q3H Lab 11/11/24 23:15 Ordered VBG [Venous Blood Gas] Stat RT 11/11/24 15:49 Completed ECG Data Tracing #1: I reviewed this ECG and interpreted as documented below: Normal sinus rhythm with a ventricular rate of [address] changes concerning for STEMI. Normal axis and intervals ECG initial impression date: 11/11/24 ECG initial impression time: 15:40 Critical Care <SHRUTHI Hollins - Last Filed: 11/11/24 17:22> Critical Care Time Critical Care Time: No
--- NOTE | 2024-11-11 15:38 | ECG_ITS ---
APPROVED REPORT Exam: Resting ECG HR:90 bpm ECG Measurements Heart Rate 90 AXES AK 139 P 59 QRSd 94 QRS 43 QT 311 T 36 QTc 359 Conclusion SINUS RHYTHM POSSIBLE LEFT ATRIAL ENLARGEMENT [-0.1mV P-WAVE IN V1/V2] BORDERLINE ECG No STEMI Electronically signed by : SANDRA DURAN, 11/12/2024 06:15:18
--- NOTE | 2024-11-11 15:47 | XR_ITS ---
PROCEDURE INFORMATION: Exam: XR Chest Exam date and time: 11/11/2024 3:47 PM Age: 54 years old Clinical indication: Shortness of breath and wheezing; Additional info: Wheezing, short of breath TECHNIQUE: Imaging protocol: Radiologic exam of the chest. Views: 2 views. COMPARISON: CR XR CHEST 2V 04/25/2024 3:35 PM FINDINGS: Lungs: Unremarkable. No consolidation. Pleural spaces: Unremarkable. No pleural effusion. No pneumothorax. Heart/Mediastinum: Similar calcified hilar lymph nodes. No cardiomegaly. Bones/joints: Unremarkable. IMPRESSION: No acute findings.
[2024-11-11 15:59] LABS: Albumin Level 4.2 g/dl (3.5-5.0); Chloride 101 mmol/L (98-107); Potassium 4.4 mmoL/L (3.5-5.1); Sodium 136 mmol/L (136-145)
[2024-11-11 16:00] LABS: VBG Base Excess 3.7 mmol/L (-2.4-2.3); VBG HCO3 28.2 mmol/L (23-30); VBG Oxygen Saturation 93.4 % (50-70); VBG PCO2 44.1 mmol/L (35-51); VBG PH 7.42 mmol/L (7.31-7.41); VBG PO2 65.8 mmol/L (28-40); VBG Total CO2 29.5 mmol/L (23-27)
[2024-11-11 16:01] LABS: Blood Urea Nitrogen 13 mg/dl (7-17); Creatinine Clearance Estimated 84 mL/min (50-200); Estimated Glomerular Filt Rate 104 ml/min (>60); GFR (African American) 126 ML/MIN (>60)
[2024-11-11 16:02] LABS: Lactate Venous 2.2 mmol/L (0.4-2.0)
[2024-11-11 16:02] LABS: Alanine Aminotransferase 34 U/L (12-78); Albumin/Globulin Ratio 1.2 (1.1-1.8); Alkaline Phosphatase 64 U/L (38-126); Anion Gap 9.4 mEq/L (5-15); Aspartate Amino Transferase 48 U/L (14-36); Bilirubin,Total 0.5 mg/dl (0.2-1.3); Calcium 9.4 mg/dl (8.4-10.2); Carbon Dioxide 30 mmol/L (22.0-30.0); Globulin 3.4 g/dL (1.3-3.2); Glucose 189 mg/dl (74-100); Total Protein,Serum 7.6 g/dl (6.3-8.2)
[2024-11-11 16:03] LABS: Magnesium 1.9 mg/dl (1.6-2.3)
[2024-11-11 16:04] LABS: White Blood Count 6.8 K/mm3 (4.8-10.8)
[2024-11-11 16:05] LABS: Basophils % 0.3 % (0.1-2.0); Hematocrit 38.9 % (37.0-47.0); Hemoglobin 12.2 g/dL (12.2-16.2); Lymphocytes # 0.8 K/mm3 (0.7-4.5); Lymphocytes % 11.6 % (10-50); Mean Corpuscular HGB Conc 31.4 g/dL (31.8-35.4); Mean Corpuscular Hemoglobin 28.6 pg (27.0-31.2); Mean Corpuscular Volume 91.1 fl (81-99); Mean Platelet Volume 9.7 fl (7.4-10.4); Monocytes # 0.6 K/mm3 (0.1-1.0); Monocytes % 8.1 % (1.7-9.3); Neutrophils # 5.3 K/mm3 (1.8-7.8); Neutrophils % 79.1 % (37.0-80.0); Platelet Count 270 K/mm3 (142-424); Red Blood Count 4.27 M/mm3 (4.20-5.40); Red Cell Distribution Width 14.5 % (11.5-17.5)
[2024-11-11 16:07] LABS: INR 0.99 (0.9-1.1); Prothrombin Time 11.1 seconds (10.1-12.5)
[2024-11-11 16:08] LABS: Adenovirus,PCR Not Detected (NotDetected); Bordetella Pertussis Not Detected (NotDetected); Chlamydophila Pneumoniae, PCR Not Detected (NotDetected); Coronavirus 19, PCR Not Detected (NotDetected); Coronavirus 229E Not Detected (NotDetected); Coronavirus NL63 Not Detected (NotDetected); Coronavirus OC43 Not Detected (NotDetected); Coronovirus HKU1,PCR Not Detected (NotDetected); Human Metapneumovirus Not Detected (NotDetected); Influenza A, PCR Not Detected (NotDetected); Influenza AH1, PCR Not Detected (NotDetected); Influenza AH3,PCR Not Detected (NotDetected); Influenza B, PCR Not Detected (NotDetected); Mycoplasma Pneumoniae, PCR Not Detected (NotDetected); Parainfluenza 1, PCR Not Detected (NotDetected); Parainfluenza 2, PCR Not Detected (NotDetected); Parainfluenza 3, PCR Not Detected (NotDetected); Parainfluenza 4, PCR Not Detected (NotDetected); Rhinovirus/Enterovirus Not Detected (NotDetected)
[2024-11-11] MEDS: IPRATROPIUM/ALBUTEROL 3 ML NEB IH (16:08)
[2024-11-11] MEDS: IBUPROFEN 400 MG TABLET 800 MG PO (16:09)
[2024-11-11] MEDS: METHYLPREDNISOLONE SOD SUCC 125MG VIAL 125 MG IV (16:09)
[2024-11-11] MEDS: ACETAMINOPHEN 500MG TAB 1000 MG PO (16:09)
[2024-11-11 16:11] LABS: NT Pro Brain Natriuretic Pep. 144 pg/mL (0-125)
[2024-11-11 16:19] LABS: Procalcitonin 0.093 ng/mL (0.0-2.0)
--- NOTE | 2024-11-11 16:36 | PC.NURSE ---
called lab about add on d dimer
[2024-11-11 16:59] LABS: D-Dimer 0.93 ug/mL (0.0-0.5)
--- NOTE | 2024-11-11 17:06 | PC.NURSE ---
patient O2 is 96%, when patient ambulates O2 drops to 87%.
--- NOTE | 2024-11-11 17:20 | EXP.HP ---
History of Present Illness *Admission Date: 11/11/24 *Reason for visit:: Short of breath *History of present illness: Ms. Saleh is a 54-year-old female with morbid obesity, diabetes, COPD, tobacco use disorder who presents to the ER because of persistent dyspnea. States she was exposed to a family member positive for RSV this past week. She has had cough and shortness of breath for about a week. Worsening over the past 2 to 3 days with increased shortness of breath. Saw her PCP who started her on empiric therapy for bronchitis. She has not gotten any better. On arrival to the ER today, was found to be hypoxic. Workup concerning for COPD exacerbation. Medicine consulted for admission. By arrival to the floor, states she is feeling little bit better but still requiring 2 L oxygen. Respiratory panel positive for RSV and flu. Denies any chest pain, nausea, vomiting. Has had decreased and poor appetite however. Afebrile but complains of subjective chills. [facility] Disclaimer: The information contained in this section may have been updated after the patient was seen, as this information can be updated by other users. Medical History Vulvar lesion Posttraumatic stress disorder Fibromyalgia Type 2 diabetes mellitus RLS (restless legs syndrome) MEGHANN (obstructive sleep apnea) Surgical History H/O: Family History Other Diabetes Social History Smoking Status: Never smoker second hand exposure: No alcohol intake: never counseling given: No substance use type: denies use counseling given: No current occupational status: other Travel in the last 8 weeks: None adopted: No caregiver/support person: Yes (she has her 2 grand-daughters; they are 11 and 8; her son's daughters) foster care: No household members: family housing: house lives independently: No number of children: 2 number of grandchildren: 8 education level: high school current occupation: she has been a private sitter current occupational exposures/hazards: No caffeine: Yes physical activity: none working smoke detector in home: Yes fire extinguisher in home: Yes carbon monox detector in home: No firearms in home: No do you feel safe at home: Yes victim of physical abuse: No victim of emotional abuse: No victim of sexual abuse: No would you like helpful sources: No Have you lived/traveled outside [place] in past 30 days?: No Contact w/someone who lives/traveled outside [place] past 30 days?: No Exposure to someone with infectious disease in past 14 days?: No Do you have a fever (greater than 100.4 F or 38 C)?: No Have you tested positive for COVID-19: No Exposed to someone with COVID-19 in past 14 days?: No Do you have a sore throat?: No Do you have a cough?: No Do you have any weakness?: Yes Do you have any diarrhea?: No Are you experiencing any unusual bleeding?: No Do you have any muscle aches/pain?: No Do you have any abdominal pain?: No Are you experiencing loss of taste or smell?: No Other Medical History Have you received the Flu Vaccine for this season: No Have you received the Pneumonia Vaccine: No Review of Systems Review of Systems Review of systems (narrative): 14 point review of systems performed, pertinent positives and negatives as per HPI Meds Home Medications and Allergies Home Medications ?Medication ?Instructions ?Recorded ?Confirmed ?Type triamcinolone acetonide 55 mcg 1 spray intranasal DAILY PRN 08/22/23 10/29/24 History nasal spray aerosol albuterol sulfate 90 mcg/actuation 2 puff inhalation Q4-6H PRN 08/27/23 10/29/24 Rx aerosol inhaler (ProAir HFA) shortness of breath or wheezing 30 days #8.5 grams cetirizine 10 mg tablet See Rx Instructions .Route 01/09/24 10/29/24 Rx .COMPLEX #30 tabs montelukast 10 mg tablet See Rx Instructions .Route 02/26/24 10/29/24 Rx .COMPLEX #30 tabs methocarbamol 750 mg tablet 750 mg PO QID PRN muscle spasm #20 05/30/24 10/29/24 Rx tabs upadacitinib 15 mg tablet,extended mg PO 06/23/24 10/29/24 History release 24 hr (Rinvoq) alprazolam 0.25 mg tablet 0.25 mg PO BID PRN anxiety #20 tabs 08/21/24 10/29/24 Rx olopatadine 0.1 % eye drops 1 drp ophthalmic (eye) BID #5 mL 09/22/24 10/29/24 Rx blood sugar diagnostic (OneTouch #100 ea 10/03/24 10/29/24 Rx Ultra Test strips) blood-glucose meter (OneTouch #1 ea 10/03/24 10/29/24 Rx Ultra2 Meter) dapagliflozin propanediol 5 mg See Rx Instructions .Route 10/03/24 10/29/24 Rx tablet (Farxiga) .COMPLEX #30 tabs escitalopram oxalate 20 mg tablet See Rx Instructions .Route 10/03/24 10/29/24 Rx .COMPLEX #30 tabs ibuprofen 800 mg tablet 800 mg PO Q8H #90 tabs 10/03/24 10/29/24 Rx lancets 30 gauge (OneTouch #100 ea 10/03/24 10/29/24 Rx UltraSoft 2 Lancet) losartan 25 mg tablet See Rx Instructions .Route 10/03/24 10/29/24 Rx .COMPLEX #30 tabs metformin 500 mg tablet,extended See Rx Instructions .Route 10/03/24 10/29/24 Rx release 24 hr .COMPLEX #30 tabs omeprazole 40 mg capsule,delayed See Rx Instructions .Route 10/03/24 10/29/24 Rx release .COMPLEX #30 caps semaglutide 0.25 mg or 0.5 mg (2 See Rx Instructions .Route 10/03/24 10/29/24 Rx mg/3 mL) subcutaneous pen injector .COMPLEX #3 mL (Ozempic) buspirone 7.5 mg tablet See Rx Instructions .Route 11/03/24 Rx .COMPLEX #60 tabs triamterene 37.5 See Rx Instructions .Route 11/03/24 Rx mg-hydrochlorothiazide 25 mg tablet .COMPLEX #30 tabs gabapentin enacarbil 600 mg 600 mg PO HS RLS #30 tabs 11/05/24 Rx tablet,extended release ([facility]) levofloxacin 500 mg tablet 500 mg PO DAILY 7 days #7 tabs 11/07/24 Rx prednisone 10 mg tablets in a dose 10 mg PO DIRECTED #21 tabs 11/07/24 Rx pack New Prescriptions to Start Prescriptions: Allergies Allergy/AdvReac Type Severity Reaction Status Date / Time No Known Allergies Allergy Verified 10/29/24 13:03 Exam Data for Last 24 hours Vital signs and Labs for Last 24 Hours: Temp Pulse Resp BP Pulse Ox O2 Del Method O2 Flow Rate 98.5 F 81 20 127/71 94 L Nasal Cannula 2 11/11/24 15:40 11/11/24 16:29 11/11/24 15:40 11/11/24 16:29 11/11/24 16:29 11/11/24 16:29 11/11/24 16:29 Laboratory Results - last 24 hr 11/11/24 15:43: WBC 6.8, RBC 4.27, Hgb 12.2, Hct 38.9, MCV 91.1, MCH 28.6, MCHC 31.4 L, RDW 14.5, Plt Count 270, MPV 9.7, Neut % (Auto) 79.1, Lymph % (Auto) 11.6, [place] % (Auto) 8.1, Eos % (Auto) 0.0 L, Baso % (Auto) 0.3, Neut # (Auto) 5.3, Lymph # (Auto) 0.8, [place] # (Auto) 0.6, Eos # (Auto) 0.0, Baso # (Auto) 0.0, PT 11.1, INR 0.99, D-Dimer 0.93 H, Sodium 136, Potassium 4.4, Chloride 101, Carbon Dioxide 30, Anion Gap 9.4, BUN 13, Creatinine 0.60, Estimated Creat Clear 84, Estimated GFR 104, Est GFR ( Amer) 126, Glucose 189 H, Calcium 9.4, Magnesium 1.9, Total Bilirubin 0.5, AST 48 H, ALT 34, Alkaline Phosphatase 64, NT-Pro-B Natriuret Pep 144 H, Total Protein 7.6, Albumin 4.2, Globulin 3.4 H, Albumin/Globulin Ratio 1.2, Procalcitonin 0.093 11/11/24 15:49: VBG pH 7.42 H, VBG pCO2 44.1, VBG pO2 65.8 H, VBG HCO3 28.2, VBG Total CO2 29.5 H, VBG O2 Saturation 93.4 H, VBG Base Excess 3.7 H, VBG Lactic Acid 2.2 H I & O for Last 24 hours: Intake & Output 11/08/24 11/09/24 11/10/2424 23:59 23:59 23:59 23:59 Weight 124.738 kg Constitutional Constitutional: no acute distress, morbidly obese, chronically ill appearing and cooperative *Routine HEENT Exam Head: Present normocephalic Eye: Present EOMI and PERRL ENT: Present mucous membranes moist *Routine Neck Exam Neck: Present supple; Absent lymphadenopathy *Routine Respiratory Exam Respiratory: Present prolonged expiratory phase, rhonchi and crackles; Absent wheezes *Routine Cardiovascular Exam Cardiovascular: Present RRR *Routine Abdominal Exam Abdominal: Present soft and normoactive bowel sounds; Absent tenderness *Routine Rectal Exam Rectal:: deferred *Routine Genitalia Exam Genitalia:: deferred *Routine Extremities Exam Extremities: Present edema (trace); Absent cyanosis or clubbing *Routine Skin Exam Skin: Present warm; Absent rash *Routine Neurological Exam Neurological: Present alert, oriented X3 and moving all extremities; Absent altered mental status Assessment and Plan *Assessment and plan (1) COPD with acute exacerbation: Status: Acute Category: Medical Code(s): J44.1 - Chronic obstructive pulmonary disease with (acute) exacerbation (2) Acute hypoxemic respiratory failure: Status: Acute Category: Medical Code(s): J96.01 - Acute respiratory failure with hypoxia (3) Influenza A: Status: Acute Category: Medical Code(s): J10.1 - Influenza due to other identified influenza virus with other respiratory manifestations (4) RSV (respiratory syncytial virus infection): Status: Acute Category: Medical Code(s): B33.8 - Other specified viral diseases (5) BMI 50.0-59.9, adult: Status: Chronic Category: Medical Code(s): Z68.43 - Body mass index [BMI] 50.0-59.9, adult (6) Type 2 diabetes mellitus: Status: Chronic Qualifiers: Diabetes mellitus complication status: without complication Diabetes mellitus prison insulin use: without prison use Qualified Code(s): E11.9 - Type 2 diabetes mellitus without complications Category: Medical Code(s): E11.9 - Type 2 diabetes mellitus without complications (7) Hypertension: Status: Acute Qualifiers: Hypertension type: primary hypertension Qualified Code(s): I10 - Essential (primary) hypertension Category: Medical Code(s): I10 - Essential (primary) hypertension (8) GERD (gastroesophageal reflux disease): Status: Acute Qualifiers: Esophagitis presence: esophagitis presence not specified Qualified Code(s): K21.9 - Gastro-esophageal reflux disease without esophagitis Category: Medical Code(s): K21.9 - Gastro-esophageal reflux disease without esophagitis Plan 54-year-old female with history of COPD and diabetes and morbid obesity. Presented to the ER with persistent shortness of breath and cough. Failed antibiotics for outpatient bronchitis treatment. Exposure to RSV. Discussed case with ER physician, request admission given persistent hypoxia. I agreed to admit for further management. Upon admission, patient's respiratory panel returned positive for RSV and flu A. Problems addressed as follows: COPD exacerbation Acute hypoxic respiratory failure - Respiratory panel positive for flu A and RSV -Per my review of chest imaging, has increased pulmonary congestion bilaterally but negative for focal consolidation. -White count normal at 6.8. Hemoglobin 12.2. Electrolytes and kidney function normal with potassium 4.4, BUN 13 and creatinine 0.6. -In the setting of flu and oxygen requirement, initiate Tamiflu 75 mg twice daily -Supplemental oxygen as needed for goal sats greater 90%. Currently on 2 L -Lasix 40 mg IV once due to pulmonary congestion. -DuoNebs every 6 hours -Continue Singulair 10 daily Diabetes: continue fingersticks ACHS, sliding scale insulin; A1c pending; Farxiga 5 mg daily Anxiety: - Continue alprazolam 0.25 mg twice daily as needed -BuSpar 7.5 mg twice daily Hypertension: Continue irbesartan 37.5 mg daily as formulary conversion for losartan Full code Lovenox subcu prophylaxis Diabetic diet
--- NOTE | 2024-11-11 17:22 | PC.NURSE ---
I notified the HS of the need for a bed to admit
--- NOTE | 2024-11-11 17:41 | PC.NURSE ---
called report to evgeny dorman on 2nd floor and answered all questions
[2024-11-11 18:17] LABS: Influenza AH1, 2009 Detected (NotDetected); Respiratory Syncytial Virus Detected (NotDetected)
--- NOTE | 2024-11-11 18:25 | PC.NURSE ---
ER called and stated pt is positive for flu A and RSV. Md. wu and dr. Jansen entering room to speak with family and daughter.
[2024-11-11] MEDS: FUROSEMIDE 40MG/4ML VIAL 40 MG IV (18:42)
[2024-11-11 20:03] LABS: Reflex Lactic Add Lactic Reflex
--- NOTE | 2024-11-11 20:32 | PC.NURSE ---
Paged [facility] at 20:27 and consulted Denny about a buspirone situation. There were only 10 mg buspirone tablets available in the [facility] (including browser) at this time, and the patient needed a 7.5 mg dose. Denny stated that you could split up the buspirone even though it is not the most accurate. Verified with charge nurse (Franky Corley RN) that I pulled 1 tablet (buspirone 10 mg) and will be splitting it up. One half will be kept whole (5 mg), and the other half will be quartered (2.5 mg) to equal the ordered dose of buspirone 7.5 mg to be given.
[2024-11-11] MEDS: OSELTAMIVIR 75MG CAPSULE 75 MG PO (20:40)
[2024-11-11] MEDS: ENOXAPARIN 40MG/0.4ML SYRINGE 40 MG SUBCUT (20:40)
[2024-11-11] MEDS: BUSPIRONE HCL 5 MG TABLET 7.5 MG PO (20:40)
[2024-11-11] MEDS: humaLOG 100 UNITS/ML 10ML VIAL (SSI) SUBCUT (20:55)
[2024-11-11 20:58] LABS: Troponin I < 0.01 ng/ml (0.00-0.034)
[2024-11-11 22:07] LABS: POC Glucose,Bedside 269 (70-110)
[2024-11-11 23:44] LABS: Troponin I < 0.01 ng/ml (0.00-0.034)
[2024-11-12 04:00] VITALS: BP 144/91; PULSE 72; RESP 18; TEMP 36.6; O2SAT 90; BMI 51.7
--- NOTE | 2024-11-12 04:05 | PC.NURSE ---
Patient is alert and oriented x4. Patient was admitted yesterday evening during the previous shift, but admission assessment and home medication reconciliation was completed this shift. Patient was observed to have eyes closed, respirations even and unlabored, and no apparent distress throughout the majority of the night. Patient has been complaining of feeling very tired and fatigued. She has primarily worn her personal CPAP at the bedside this shift (for sleep); 2 L of nasal cannula was initially in place at shift change. Patient has been tolerating oxygen devices with oxygen saturations > 90%. Upon auscultation of her lungs, scattered wheezing could be heard along with diminished air movement. She has complained of having a mild headache, but has not requested to have any pain medication thus far. Scheduled medications were administered as appropriately per JAN. She has ambulating independently as tolerated. At this time, the patient is resting in bed without further complaints. No acute changes noted thus far. Call light within reach. Contact/droplet/airborne precautions in place for RSV/Influ A.
[2024-11-12 05:47] LABS: POC Glucose,Bedside 137 (70-110)
[2024-11-12 07:32] LABS: Hemoglobin 12.1 g/dL (12.2-16.2); Red Blood Count 4.23 M/mm3 (4.20-5.40); White Blood Count 6.8 K/mm3 (4.8-10.8)
[2024-11-12 07:33] LABS: Basophils % 0.1 % (0.1-2.0); Hematocrit 39.4 % (37.0-47.0); Lymphocytes % 17.7 % (10-50); Mean Corpuscular HGB Conc 30.7 g/dL (31.8-35.4); Mean Corpuscular Hemoglobin 28.6 pg (27.0-31.2); Mean Corpuscular Volume 93.1 fl (81-99); Mean Platelet Volume 9.8 fl (7.4-10.4); Monocytes % 13.9 % (1.7-9.3); Neutrophils % 67.4 % (37.0-80.0); Platelet Count 262 K/mm3 (142-424); Red Cell Distribution Width 14.4 % (11.5-17.5)
[2024-11-12 07:34] LABS: Lymphocytes # 1.2 K/mm3 (0.7-4.5); Monocytes # 0.9 K/mm3 (0.1-1.0); Neutrophils # 4.6 K/mm3 (1.8-7.8)
--- NOTE | 2024-11-12 07:44 | HMH.PHAINT1 ---
Pharmacy Intervention Comments: HOME MEDICATION LIST VERIFIED USING LIST FROM OUTPATIENT PHARMACY AND PT INTERVIEW
[2024-11-12 08:00] VITALS: BP 123/59; PULSE 73; RESP 18; TEMP 37.1; O2SAT 93
[2024-11-12 08:23] LABS: Chloride 106 mmol/L (98-107); Sodium 137 mmol/L (136-145)
[2024-11-12 08:24] LABS: Potassium 4.2 mmoL/L (3.5-5.1)
[2024-11-12 08:26] LABS: Alanine Aminotransferase 33 U/L (12-78); Albumin/Globulin Ratio 1.3 (1.1-1.8); Alkaline Phosphatase 65 U/L (38-126); Anion Gap 5.2 mEq/L (5-15); Aspartate Amino Transferase 57 U/L (14-36); Bilirubin,Total 0.5 mg/dl (0.2-1.3); Blood Urea Nitrogen 20 mg/dl (7-17); Carbon Dioxide 30 mmol/L (22.0-30.0); Creatinine Clearance Estimated 80 mL/min (50-200); Estimated Glomerular Filt Rate 104 ml/min (>60); GFR (African American) 126 ML/MIN (>60); Globulin 3.2 g/dL (1.3-3.2); Total Protein,Serum 7.2 g/dl (6.3-8.2)
[2024-11-12 08:27] LABS: Glucose 128 mg/dl (74-100); Magnesium 2.2 mg/dl (1.6-2.3)
[2024-11-12] MEDS: DAPAGLIFLOZIN PROPANEDIOL 10 MG TABLET 5 MG PO (08:40)
[2024-11-12] MEDS: OSELTAMIVIR 75MG CAPSULE 75 MG PO ×2 (08:40→20:25)
[2024-11-12] MEDS: CITALOPRAM 40MG TABLET 40 MG PO (08:40)
[2024-11-12] MEDS: BUSPIRONE HCL 5 MG TABLET 7.5 MG PO ×2 (08:40→20:25)
[2024-11-12] MEDS: IRBESARTAN 75MG TABLET 37.5 MG PO (08:41)
[2024-11-12] MEDS: ENOXAPARIN 40MG/0.4ML SYRINGE 40 MG SUBCUT ×2 (08:41→20:25)
--- NOTE | 2024-11-12 11:12 | PC.NURSE ---
patient o2 sat was 82% on RA. patient placed back on 2LNC, o2 sat is now 93%
[2024-11-12 11:25] LABS: POC Glucose,Bedside 119 (70-110)
[2024-11-12 11:37] VITALS: PULSE 72
[2024-11-12] MEDS: IPRATROPIUM/ALBUTEROL 3 ML NEB IH ×2 (11:37→18:59)
--- NOTE | 2024-11-12 12:06 | P.PN_ITS ---
Subjective *Date: 11/12/24 *Time: 12:06 Interval history: Wore CPAP overnight. States she is breathing somewhat better today. Will switch to room air during morning rounds. Over the next 20 minutes desatted down to low 80s on room air. Continues to require inpatient management for hypo heri. Tolerating Tamiflu. Continue symptomatic treatment. Denies chest pain, nausea, vomiting. Medical Exam Vital signs and Labs for Last 24 Hours: Vital Signs Temp Pulse Pulse Resp BP BP Pulse Ox 11/12/24 11:37 72 11/12/24 11:37 72 11/12/24 11:00 11/12/24 09:00 11/12/24 08:00 11/12/24 08:00 98.7 F 73 18 123/59 L 93 L 11/12/24 06:55 11/12/24 05:00 11/12/24 04:00 97.9 F 72 18 144/91 H 90 L 11/12/24 03:00 11/12/24 01:00 11/11/24 23:39 85 11/11/24 21:00 11/11/24 20:00 91 H 20 91 L 11/11/24 20:00 98.7 F 91 H 20 133/73 91 L 11/11/24 19:07 11/11/24 18:54 95 11/11/24 18:52 11/11/24 18:17 98.6 F 77 19 139/81 90 L 11/11/24 17:41 98.2 F 81 24 144/84 H 11/11/24 17:30 77 144/84 H 95 11/11/24 17:00 78 124/73 94 L 11/11/24 16:29 81 127/71 94 L 11/11/24 15:40 98.5 F 96 H 20 147/78 H 90 L O2 Del Method O2 Flow Rate FiO2 11/12/24 11:37 11/12/24 11:37 11/12/24 11:00 Nasal Cannula 2 11/12/24 09:00 CPAP 11/12/24 08:00 CPAP 11/12/24 08:00 2 11/12/24 06:55 CPAP 11/12/24 05:00 CPAP 11/12/24 04:00 CPAP 11/12/24 03:00 CPAP 11/12/24 01:00 CPAP 11/11/24 23:39 11/11/24 21:00 CPAP 11/11/24 20:00 Nasal Cannula 2 11/11/24 20:00 Nasal Cannula 2 11/11/24 19:07 Nasal Cannula 2 28 11/11/24 18:54 Nasal Cannula 2 11/11/24 18:52 Nasal Cannula 2 11/11/24 18:17 Nasal Cannula 2 11/11/24 17:41 Nasal Cannula 2 11/11/24 17:30 Room Air 11/11/24 17:00 Room Air 11/11/24 16:29 Nasal Cannula 2 11/11/24 15:40 Room Air Intake and Output 11/11/24 11/12/24 11/12/24 23:59 07:59 15:59 Intake Total 100 / 100 Output Total 0 / 0 0 / 0 Balance 0 / 100 100 / 100 Intake: Intake, Oral Amount 100 / 100 Output: Output, Urine Amount 0 / 0 0 / 0 Other: Number of Unmeasured Voids 1 1 Weight 127.505 kg Patient Weight 11/12/24 23:59 Weight 127.505 kg Laboratory Results - last 24 hr 11/11/24 15:43: WBC 6.8, RBC 4.27, Hgb 12.2, Hct 38.9, MCV 91.1, MCH 28.6, MCHC 31.4 L, RDW 14.5, Plt Count 270, MPV 9.7, Neut % (Auto) 79.1, Lymph % (Auto) 11.6, [place] % (Auto) 8.1, Eos % (Auto) 0.0 L, Baso % (Auto) 0.3, Neut # (Auto) 5.3, Lymph # (Auto) 0.8, [place] # (Auto) 0.6, Eos # (Auto) 0.0, Baso # (Auto) 0.0, PT 11.1, INR 0.99, D-Dimer 0.93 H, Sodium 136, Potassium 4.4, Chloride 101, Carbon Dioxide 30, Anion Gap 9.4, BUN 13, Creatinine 0.60, Estimated Creat Clear 84, Estimated GFR 104, Est GFR ( Amer) 126, Glucose 189 H, Calcium 9.4, Magnesium 1.9, Total Bilirubin 0.5, AST 48 H, ALT 34, Alkaline Phosphatase 64, NT-Pro-B Natriuret Pep 144 H, Total Protein 7.6, Albumin 4.2, Globulin 3.4 H, Albumin/Globulin Ratio 1.2, Procalcitonin 0.093 11/11/24 15:49: VBG pH 7.42 H, VBG pCO2 44.1, VBG pO2 65.8 H, VBG HCO3 28.2, VBG Total CO2 29.5 H, VBG O2 Saturation 93.4 H, VBG Base Excess 3.7 H, VBG Lactic Acid 2.2 H 11/11/24 16:00: Chlamy pneumoniae PCR Not detected, Adenovirus (PCR) Not detected, B. pertussis DNA (PCR) Not detected, Coronavirus OC43 (PCR) Not de tected, Coronavirus HKU1 (PCR) Not detected, Coronavirus 229E (PCR) Not detected, SARS-CoV-2 (PCR) Not detected, Coronavirus NL63 (PCR) Not detected, Human Metapneumovir PCR Not detected, Influenza A (H1) PCR Not detected, Influ A (H1N1/09) PCR Detected A, Influenza A (H3) PCR Not detected, Influenza Type A (PCR) Not detected, Influenza Type B (PCR) Not detected, M. pneumoniae (PCR) Not detected, Parainfluenza 1 (PCR) Not detected, Parainfluenza 2 (PCR) Not detected, Parainfluenza 3 (PCR) Not detected, Parainfluenza 4 (PCR) Not detected, RSV (PCR) Detected A, Entero/Rhino (PCR) Not detected 11/11/24 20:19: Lactate 1.0, Troponin I < 0.01 11/11/24 20:48: POC Glucose 269 H 11/11/24 23:12: Troponin I < 0.01 11/12/24 05:40: POC Glucose 137 H 11/12/24 06:55: WBC 6.8, RBC 4.23, Hgb 12.1 L, Hct 39.4, MCV 93.1, MCH 28.6, MCHC 30.7 L, RDW 14.4, Plt Count 262, MPV 9.8, Neut % (Auto) 67.4, Lymph % (Auto) 17.7, [place] % (Auto) 13.9 H, Eos % (Auto) 0.0 L, Baso % (Auto) 0.1, Neut # (Auto) 4.6, Lymph # (Auto) 1.2, [place] # (Auto) 0.9, Eos # (Auto) 0.0, Baso # (Auto) 0.0, Sodium 137, Potassium 4.2, Chloride 106, Carbon Dioxide 30, Anion Gap 5.2, BUN 20 H D, Creatinine 0.60, Estimated Creat Clear 80, Estimated GFR 104, Est GFR ( Amer) 126, Glucose 128 H D, Hemoglobin A1c 6.0, Calcium 9.0, Magnesium 2.2 D, Total Bilirubin 0.5, AST 57 H, ALT 33, Alkaline Phosphatase 65, Total Protein 7.2, Albumin 4.0, Globulin 3.2, Albumin/Globulin Ratio 1.3 11/12/24 11:17: POC Glucose 119 H I & O for Labs for Last 24 Hours: Intake & Output 11/09/24 11/10/24 11/11/24 11/12/24 23:59 23:59 23:59 23:59 Intake Total 100 / 100 Output Total 0 / 0 0 / 0 Balance 0 / 100 100 / 100 Weight 124.738 kg 127.505 kg Constitutional: Present no acute distress, morbidly obese and cooperative Head: Present atraumatic and normocephalic ENT: Present normal exam Respiratory: Present rhonchi, wheezes (Minimal end expiratory) and normal respiratory effort; Absent respiratory distress or crackles Cardiac: Present Reg Rate and Rhythm GI: Present soft and normal bowel sounds; Absent distention or tenderness Extremities: Present normal inspection and full ROM Skin: Present intact; Absent erythema Neuro: Present Grossly Intact, alert, awake, oriented x 3 and moves all extremities Assessment and Plan *Assessment and plan (1) COPD with acute exacerbation: Status: Acute Category: Medical Code(s): J44.1 - Chronic obstructive pulmonary disease with (acute) exacerbation (2) Acute hypoxemic respiratory failure: Status: Acute Category: Medical Code(s): J96.01 - Acute respiratory failure with hypoxia (3) Influenza A: Status: Acute Category: Medical Code(s): J10.1 - Influenza due to other identified influenza virus with other respiratory manifestations (4) RSV (respiratory syncytial virus infection): Status: Acute Category: Medical Code(s): B33.8 - Other specified viral diseases (5) BMI 50.0-59.9, adult: Status: Chronic Category: Medical Code(s): Z68.43 - Body mass index [BMI] 50.0-59.9, adult (6) Type 2 diabetes mellitus: Status: Chronic Qualifiers: Diabetes mellitus medical terminologist insulin use: without halfway use Diabetes mellitus complication status: without complication Qualified Code(s): E11.9 - Type 2 diabetes mellitus without complications Category: Medical Code(s): E11.9 - Type 2 diabetes mellitus without complications (7) Hypertension: Status: Acute Qualifiers: Hypertension type: primary hypertension Qualified Code(s): I10 - Essential (primary) hypertension Category: Medical Code(s): I10 - Essential (primary) hypertension (8) GERD (gastroesophageal reflux disease): Status: Acute Qualifiers: Esophagitis presence: esophagitis presence not specified Qualified Code(s): K21.9 - Gastro-esophageal reflux disease without esophagitis Category: Medical Code(s): K21.9 - Gastro-esophageal reflux disease without esophagitis Plan 54-year-old female with history of COPD and diabetes and morbid obesity. Presented to the ER with persistent shortness of breath and cough. Failed a ntibiotics for outpatient bronchitis treatment. Exposure to RSV. Discussed case with ER physician, request admission given persistent hypoxia. I agreed to admit for further management. Upon admission, patient's respiratory panel returned positive for RSV and flu A. Continues to be hypoxic on room air. Continue inpatient management. Problems addressed as follows: COPD exacerbation Acute hypoxic respiratory failure - Respiratory panel positive for flu A and RSV -White count remains normal at 6.8, remains hypoxic when switched to room air. O2 sats in the low 80s on room air. Continue supplemental oxygen as needed for goal sats greater 90%. CPAP at night for sleep apnea -Continue Tamiflu 75 mg twice daily. -Repeat CBC, CMP, magnesium ordered for the morning. -Will administer additional dose of Lasix 40 mg IV once due to pulmonary congestion. -Encourage ambulation, aggressive pulmonary toilet. -DuoNebs every 6 hours -Continue Singulair 10 daily -Kidney function normal with BUN 20, creatinine 0.2. Potassium 4.2, magnesium 2.2. Diabetes: continue fingersticks ACHS, sliding scale insulin; A1c 6.0 - Farxiga 5 mg daily Anxiety: - Continue alprazolam 0.25 mg twice daily as needed - BuSpar 7.5 mg twice daily Hypertension: Continue irbesartan 37.5 mg daily as formulary conversion for losartan Full code Lovenox subcu prophylaxis Diabetic diet
[2024-11-12] MEDS: FUROSEMIDE 40MG/4ML VIAL 40 MG IV (13:04)
[2024-11-12 16:00] VITALS: BP 132/75; PULSE 82; RESP 22; TEMP 38.1; O2SAT 96
[2024-11-12] MEDS: ACETAMINOPHEN 325MG TAB 650 MG PO (16:26)
[2024-11-12 16:34] LABS: POC Glucose,Bedside 118 (70-110)
[2024-11-12] MEDS: MONTELUKAST SODIUM 10MG TAB 10 MG PO (17:21)
--- NOTE | 2024-11-12 18:01 | PC.NURSE ---
SRNA reported a temp of 100.5 orally at 1600. notified, new orders received, tylenol given per JAN. rechecked pt temp 30 mins later and it was 99.4 orally.
[2024-11-12 18:55] VITALS: PULSE 79; PULSE 82; O2SAT 96
[2024-11-12 20:00] VITALS: BP 114/53; PULSE 85; RESP 20; TEMP 37.3; O2SAT 89; O2SAT 94
[2024-11-12] MEDS: PANTOPRAZOLE 40MG TABLET 40 MG PO (20:25)
[2024-11-12 22:57] LABS: POC Glucose,Bedside 120 (70-110)
[2024-11-13] VITALS: BP 126/75; PULSE 86; RESP 18; TEMP 37.6; O2SAT 91
[2024-11-13] MEDS: IPRATROPIUM/ALBUTEROL 3 ML NEB IH ×2 (00:20→05:41)
[2024-11-13 00:52] VITALS: PULSE 70; PULSE 75; O2SAT 94
[2024-11-13 04:00] VITALS: BP 118/60; PULSE 85; RESP 18; TEMP 38; O2SAT 94; BMI 51.9
[2024-11-13 05:38] LABS: POC Glucose,Bedside 119 (70-110)
[2024-11-13 05:42] VITALS: PULSE 89; PULSE 91; O2SAT 88
[2024-11-13] MEDS: ACETAMINOPHEN 325MG TAB 650 MG PO (06:07)
--- NOTE | 2024-11-13 06:10 | PC.NURSE ---
nurse tech reported temp 100.4 Ax. Tylenol given
[2024-11-13 07:07] LABS: Hemoglobin 12.1 g/dL (12.2-16.2); Red Blood Count 4.24 M/mm3 (4.20-5.40); White Blood Count 6.6 K/mm3 (4.8-10.8)
[2024-11-13 07:08] LABS: Basophils % 0.5 % (0.1-2.0); Eosinophils % 0.3 % (0.1-12.0); Hematocrit 39.3 % (37.0-47.0); Lymphocytes # 1.7 K/mm3 (0.7-4.5); Lymphocytes % 25.6 % (10-50); Mean Corpuscular HGB Conc 30.8 g/dL (31.8-35.4); Mean Corpuscular Hemoglobin 28.5 pg (27.0-31.2); Mean Corpuscular Volume 92.7 fl (81-99); Mean Platelet Volume 9.6 fl (7.4-10.4); Monocytes # 1.1 K/mm3 (0.1-1.0); Monocytes % 17.3 % (1.7-9.3); Neutrophils # 3.7 K/mm3 (1.8-7.8); Neutrophils % 55.5 % (37.0-80.0); Platelet Count 237 K/mm3 (142-424); Red Cell Distribution Width 14.6 % (11.5-17.5)
[2024-11-13 07:18] LABS: Albumin Level 3.7 g/dl (3.5-5.0); Chloride 104 mmol/L (98-107); Potassium 4.1 mmoL/L (3.5-5.1); Sodium 135 mmol/L (136-145)
[2024-11-13 07:21] LABS: Alanine Aminotransferase 30 U/L (12-78); Albumin/Globulin Ratio 1.2 (1.1-1.8); Alkaline Phosphatase 68 U/L (38-126); Anion Gap 5.1 mEq/L (5-15); Aspartate Amino Transferase 39 U/L (14-36); Bilirubin,Total 0.4 mg/dl (0.2-1.3); Blood Urea Nitrogen 19 mg/dl (7-17); Carbon Dioxide 30 mmol/L (22.0-30.0); Creatinine Clearance Estimated 80 mL/min (50-200); Estimated Glomerular Filt Rate 104 ml/min (>60); GFR (African American) 126 ML/MIN (>60); Total Protein,Serum 6.7 g/dl (6.3-8.2)
[2024-11-13 07:22] LABS: Calcium 8.3 mg/dl (8.4-10.2); Glucose 115 mg/dl (74-100)
--- NOTE | 2024-11-13 07:48 | P.DS_ITS ---
General Admission date:: 11/11/24 Discharge date: 11/13/24 HPI HPI HPI: Ms. Saleh is a 54-year-old female with morbid obesity, diabetes, COPD, tobacco use disorder who presents to the ER because of persistent dyspnea. States she was exposed to a family member positive for RSV this past week. She has had cough and shortness of breath for about a week. Worsening over the past 2 to 3 days with increased shortness of breath. Saw her PCP who started her on empiric therapy for bronchitis. She has not gotten any better. On arrival to the ER today, was found to be hypoxic. Workup concerning for COPD exacerbation. Medicine consulted for admission. By arrival to the floor, states she is feeling little bit better but still requiring 2 L oxygen. Respiratory panel positive for RSV and flu. Denies any chest pain, nausea, vomiting. Has had decreased and poor appetite however. Afebrile but complains of subjective chills. Hospital Course Hospital Course Hospital Course: 54-year-old female with history of COPD and diabetes and morbid obesity. Presented to the ER with persistent shortness of breath and cough. Failed antibiotics for outpatient bronchitis treatment. Exposure to RSV. Discussed case with ER physician, request admission given persistent hypoxia. I agreed to admit for further management. Upon admission, patient's respiratory panel returned positive for RSV and flu A. Treated for flu during admission. Showing significant clinical improvement. Still requiring oxygen at discharge but doing better. Intermittent fevers related to flu. Transition to oral therapy to complete 5-day course of Tamiflu for flu A. Stable to discharge home with family. Problems addressed as follows: COPD exacerbation Acute hypoxic respiratory failure -On presentation, patient had new oxygen requirement. Comprehensive panel positive for flu A and RSV. White count has remained stable during duration of her hospitalization. No indication for antibiotics. Was started on Tamiflu 75 mg daily. Will complete 5 days total of therapy. Complete 5 days of steroids for COPD exacerbation component. Supplemental oxygen during admission. Continued to require oxygen on day of discharge. Room air saturation of 88% at rest, continue oxygen via nasal cannula at 2 L continuously. Patient having intermittent fevers, suspect secondary to flu. Chest imaging did not show any focal pneumonia. No indication for antibiotics. Continue nebulizers and inhalers per home regimen. Continue Singulair 10 mg daily. Continue ambulation and aggressive pulmonary toilet. Stable to discharge home with further treatment as an outpatient for flu. Diabetes: Continue home regimen with 5 mg Farxiga daily, metformin 500 mg daily, Ozempic weekly, A1c 6 on admission. Anxiety: Continue alprazolam 0.25 mg twice daily as needed; BuSpar 7.5 mg twice daily Hypertension: Continue home regimen of losartan, triamterene-HCTZ, Exam Data for Last 24 hours Vital signs and Labs for Last 24 Hours: Temp Pulse Resp BP Pulse Ox O2 Del Method O2 Flow Rate 100.4 F H 91 H 18 118/60 88 L Nasal Cannula 3 11/13/24 04:00 11/13/24 05:42 11/13/24 04:00 11/13/24 04:00 11/13/24 05:42 11/13/24 07:37 11/13/24 00:52 FiO2 28 11/11/24 19:07 Laboratory Results - last 24 hr 11/12/24 06:55: Sodium 137, Potassium 4.2, Chloride 106, Carbon Dioxide 30, Anion Gap 5.2, BUN 20 H D, Creatinine 0.60, Estimated Creat Clear 80, Estimated GFR 104, Est GFR ( Amer) 126, Glucose 128 H D, Hemoglobin A1c 6.0, Calcium 9.0, Magnesium 2.2 D, Total Bilirubin 0.5, AST 57 H, ALT 33, Alkaline Phosphatase 65, Total Protein 7.2, Albumin 4.0, Globulin 3.2, Albumin/Globulin Ratio 1.3 11/12/24 11:17: POC Glucose 119 H 11/12/24 16:26: POC Glucose 118 H 11/12/24 20:24: POC Glucose 120 H 11/13/24 05:25: POC Glucose 119 H 11/13/24 06:22: WBC 6.6, RBC 4.24, Hgb 12.1 L, Hct 39.3, MCV 92.7, MCH 28.5, MCHC 30.8 L, RDW 14.6, Plt Count 237, MPV 9.6, Neut % (Auto) 55.5, Lymph % (Auto) 25.6, Towns % (Auto) 17.3 H, Eos % (Auto) 0.3, Baso % (Auto) 0.5, Neut # (Auto) 3.7, Lymph # (Auto) 1.7, Towns # (Auto) 1.1 H, Eos # (Auto) 0.0, Baso # (Auto) 0.0, Sodium 135 L, Potassium 4.1, Chloride 104, Carbon Dioxide 30, Anion Gap 5.1, BUN 19 H, Creatinine 0.60, Estimated Creat Clear 80, Estimated GFR 104, Est GFR ( Amer) 126, Glucose 115 H, Calcium 8.3 L, Magnesium 2.0, Total Bilirubin 0.4, AST 39 H D, ALT 30, Alkaline Phosphatase 68, Total Protein 6.7, Albumin 3.7, Globulin 3.0, Albumin/Globulin Ratio 1.2 I & O for Last 24 hours: Intake & Output 11/10/24 11/11/24 11/12/24 11/13/24 23:59 23:59 23:59 23:59 Intake Total 1150 / 1390 240 / 240 Output Total 0 / 0 0 / 0 Balance 0 / 100 1150 / 1390 240 / 240 Weight 124.738 kg 127.505 kg 128.004 kg Constitutional Constitutional: no acute distress, morbidly obese and cooperative *Routine HEENT Exam Head: Present normocephalic Eye: Present EOMI and PERRL ENT: Present mucous membranes moist *Routine Neck Exam Neck: Present supple; Absent lymphadenopathy *Routine Respiratory Exam Respiratory: Present prolonged expiratory phase and wheezes (Minimal, significant improvement from admission); Absent rhonchi or crackles *Routine Cardiovascular Exam Cardiovascular: Present RRR *Routine Abdominal Exam Abdominal: Present soft and normoactive bowel sounds; Absent tenderness *Routine Rectal Exam Patient deferred: visual exam *Routine Exam Patient deferred: external exam *Routine Extremities Exam Extremities: Absent cyanosis, clubbing or edema *Routine Skin Exam Skin: Present warm; Absent rash *Routine Neurological Exam Neurological: Present alert, oriented X3 and moving all extremities; Absent altered mental status Results Data Completed and Pending Labs on day of discharge: Labs from last 24 hours 11/13/24 11/13/24 11/12/24 06:22 05:25 20:24 WBC 6.6 RBC 4.24 Hgb 12.1 L Hct 39.3 MCV 92.7 MCH 28.5 MCHC 30.8 L RDW 14.6 Plt Count 237 MPV 9.6 Neut % (Auto) 55.5 Lymph % (Auto) 25.6 Towns % (Auto) 17.3 H Eos % (Auto) 0.3 Baso % (Auto) 0.5 Neut # (Auto) 3.7 Lymph # (Auto) 1.7 Towns # (Auto) 1.1 H Eos # (Auto) 0.0 Baso # (Auto) 0.0 Sodium 135 L Potassium 4.1 Chloride 104 Carbon Dioxide 30 Anion Gap 5.1 BUN 19 H Creatinine 0.60 Estimated Creat Clear 80 Estimated GFR 104 Est GFR ( Amer) 126 Glucose 115 H POC Glucose 119 H 120 H Hemoglobin A1c Calcium 8.3 L Magnesium 2.0 Total Bilirubin 0.4 AST 39 H D ALT 30 Alkaline Phosphatase 68 Total Protein 6.7 Albumin 3.7 Globulin 3.0 Albumin/Globulin Ratio 1.2 11/12/24 11/12/24 11/12/24 16:26 11:17 06:55 WBC RBC Hgb Hct MCV MCH MCHC RDW Plt Count MPV Neut % (Auto) Lymph % (Auto) Towns % (Auto) Eos % (Auto) Baso % (Auto) Neut # (Auto) Lymph # (Auto) Towns # (Auto) Eos # (Auto) Baso # (Auto) Sodium 137 Potassium 4.2 Chloride 106 Carbon Dioxide 30 Anion Gap 5.2 BUN 20 H D Creatinine 0.60 Estimated Creat Clear 80 Estimated GFR 104 Est GFR ( Amer) 126 Glucose 128 H D POC Glucose 118 H 119 H Hemoglobin A1c 6.0 Calcium 9.0 Magnesium 2.2 D Total Bilirubin 0.5 AST 57 H ALT 33 Alkaline Phosphatase 65 Total Protein 7.2 Albumin 4.0 Globulin 3.2 Albumin/Globulin Ratio 1.3 DS: Diagnosis Discharge Diagnosis (1) COPD with acute exacerbation: Status: Acute Code(s): J44.1 - Chronic obstructive pulmonary disease with (acute) exacerbation (2) Acute hypoxemic respiratory failure: Status: Acute Code(s): J96.01 - Acute respiratory failure with hypoxia (3) Influenza A: Status: Acute Code(s): J10.1 - Influenza due to other identified influenza virus with other respiratory manifestations (4) RSV (respiratory syncytial virus infection): Status: Acute Code(s): B33.8 - Other specified viral diseases (5) BMI 50.0-59.9, adult: Status: Chronic Code(s): Z68.43 - Body mass index [BMI] 50.0-59.9, adult (6) Type 2 diabetes mellitus: Status: Chronic Code(s): E11.9 - Type 2 diabetes mellitus without complications Qualifiers: Diabetes mellitus complication status: without complication Diabetes mellitus residential insulin use: without residential use Qualified Code(s): E11.9 - Type 2 diabetes mellitus without complications (7) Hypertension: Status: Acute Code(s): I10 - Essential (primary) hypertension Qualifiers: Hypertension type: primary hypertension Qualified Code(s): I10 - Essential (primary) hypertension (8) GERD (gastroesophageal reflux disease): Status: Acute Code(s): K21.9 - Gastro-esophageal reflux disease without esophagitis Qualifiers: Esophagitis presence: esophagitis presence not specified Qualified Code(s): K21.9 - Gastro-esophageal reflux disease without esophagitis Meds Home Medications and Allergies Home Medications ?Medication ?Instructions ?Recorded ?Confirmed ?Type triamcinolone acetonide 55 mcg 1 spray intranasal DAILY PRN 08/22/23 11/11/24 History nasal spray aerosol Allergies upadacitinib 15 mg tablet,extended 15 mg PO DAILY 06/23/24 11/12/24 History release 24 hr (Rinvoq) olopatadine 0.1 % eye drops 1 drp ophthalmic (eye) BID #5 mL 09/22/24 11/11/24 Rx semaglutide 0.25 mg or 0.5 mg (2 See Rx Instructions .Route 10/03/24 11/12/24 Rx mg/3 mL) subcutaneous pen injector .COMPLEX #3 mL (Ozempic) alprazolam 0.25 mg tablet 0.25 mg PO BIDP PRN anxiety 11/12/24 11/12/24 History buspirone 7.5 mg tablet 7.5 mg PO BID 11/12/24 11/12/24 History cetirizine 10 mg tablet 10 mg PO DAILY 11/12/24 11/12/24 History dapagliflozin propanediol 5 mg 5 mg PO DAILY 11/12/24 11/12/24 History tablet (Farxiga) escitalopram oxalate 20 mg tablet 20 mg PO DAILY 11/12/24 11/12/24 History gabapentin enacarbil 600 mg 600 mg PO HS 11/12/24 11/11/24 History tablet,extended release (Horizant ER) ibuprofen 800 mg tablet 800 mg PO TIDP PRN Pain 11/12/24 11/12/24 History losartan 25 mg tablet 25 mg PO DAILY 11/12/24 11/12/24 History metformin 500 mg tablet,extended 500 mg PO DAILY 11/12/24 11/12/24 History release 24 hr montelukast 10 mg tablet 10 mg PO HS 11/12/24 11/12/24 History omeprazole 40 mg capsule,delayed 40 mg PO DAILY 11/12/24 11/12/24 History release triamterene 37.5 1 tab PO DAILY 11/12/24 11/12/24 History mg-hydrochlorothiazide 25 mg tablet acetaminophen 325 mg tablet 650 mg (2 x 325 mg) PO Q6HP PRN 11/13/24 Rx Fever Or Mild Pain (1-3) #0 tabs oseltamivir 75 mg capsule (Tamiflu) 75 mg PO BID 3 days #6 caps 11/13/24 Rx prednisone 20 mg tablet 40 mg (2 x 20 mg) PO DAILY 3 days 11/13/24 Rx #6 tabs New Prescriptions to Start Prescriptions: oseltamivir [Tamiflu] Marcellus Jansen prednisone Marcellus Jansen Allergies Allergy/AdvReac Type Severity Reaction Status Date / Time No Known Allergies Allergy Verified 10/29/24 13:03 Discharge Plan Disposition Patient Disposition: Home, Self-Care Condition: Fair Discharge Order Discharge Orders: Discharge Order (Routine); Ordered 11/13/24 Ordered By: Marcellus Jansen Follow up Plan Follow up with: Shayy Feliciano APRN [Primary Care Provider] - 11/26/24 9:30 am Prescriptions/Medication Reconciliation: New acetaminophen 325 mg Tablet 650 mg PO Q6HP PRN (Reason: Fever Or Mild Pain (1-3)) Qty: 0 0RF oseltamivir [Tamiflu] 75 mg Capsule 75 mg PO BID 3 Days Qty: 6 0RF prednisone 20 mg tablet 40 mg PO DAILY 3 Days Qty: 6 0RF Continued triamcinolone acetonide 55 mcg aerosol,spray 1 spray intranasal DAILY PRN (Reason: Allergies) Rinvoq 15 mg tablet extended release 24 hr 15 mg PO DAILY Ozempic 0.25 mg or 0.5 mg (2 mg/3 mL) pen injector See Rx Instructions .ROUTE .COMPLEX Qty: 3 1RF Dose Instruction: INJECT 0.5 MG SUBCUTANEOUSLY ONCE WEEKLY Rx Instructions: INJECT 0.5 MG SUBCUTANEOUSLY ONCE WEEKLY olopatadine 0.1 % drops 1 drp OPHTHALMIC BID Qty: 5 0RF Horizant 600 mg tablet extended release 600 mg PO HS Rx Instructions: administer daily at approximately 5 PM with food/evening meal cetirizine 10 mg tablet 10 mg PO DAILY ibuprofen 800 mg tablet 800 mg PO TIDP PRN (Reason: Pain) omeprazole 40 mg capsule,delayed release(DR/EC) 40 mg PO DAILY Rx Instructions: TAKE 1 CAPSULE BY MOUTH ONCE DAILY alprazolam 0.25 mg tablet 0.25 mg PO BIDP PRN (Reason: anxiety) losartan 25 mg tablet 25 mg PO DAILY Rx Instructions: TAKE 1 TABLET BY MOUTH ONCE DAILY buspirone 7.5 mg tablet 7.5 mg PO BID Rx Instructions: TAKE 1 TABLET BY MOUTH TWICE DAILY MAY CAUSE DROWSINESS triamterene-hydrochlorothiazid 37.5-25 mg tablet 1 tab PO DAILY Rx Instructions: TAKE 1 TABLET BY MOUTH EVERY MORNING montelukast 10 mg tablet 10 mg PO HS Rx Instructions: TAKE 1 TABLET BY MOUTH ONCE DAILY metformin 500 mg tablet extended release 24 hr 500 mg PO DAILY Rx Instructions: TAKE 1 TABLET BY MOUTH ONCE DAILY escitalopram oxalate 20 mg tablet 20 mg PO DAILY Rx Instructions: TAKE 1 TABLET BY MOUTH ONCE DAILY dapagliflozin propanediol [Farxiga] 5 mg tablet 5 mg PO DAILY Rx Instructions: TAKE 1 TABLET BY MOUTH ONCE DAILY Discontinued prednisone 10 mg tablets,dose pack 10 mg PO DIRECTED Qty: 21 0RF Rx Instructions: see taper instructions levofloxacin 500 mg tablet 500 mg PO DAILY 7 Days Qty: 7 0RF Rx Instructions: LAST DOSE 11/13/24 Other Ambulatory Orders: Home Medical Equipment (Routine) Location: None Selected Ordered By: Marcellus Jansen Problem Reconciliation Problems Reviewed?: Yes Patient Discharge Instructions ACTIVITY: Continue current activity DIET: continue same diet Patient Instructions: DI for Chronic Obstructive Pulmonary Disease, DI for Respiratory Syncytial Virus -- Adults, DI for H1N1 Influenza -- Adult, DI for Respiratory Failure Print Language: Citizen Of [place] Providers Primary Care Provider: Shayy Feliciano Provider: Marcellus Jansen Attending Provider: Marcellus Jansen
[2024-11-13 08:00] VITALS: BP 129/73; PULSE 88; RESP 22; O2SAT 91
[2024-11-13] MEDS: IRBESARTAN 75MG TABLET 37.5 MG PO (08:14)
[2024-11-13] MEDS: ENOXAPARIN 40MG/0.4ML SYRINGE 40 MG SUBCUT (08:14)
[2024-11-13] MEDS: OSELTAMIVIR 75MG CAPSULE 75 MG PO (08:14)
[2024-11-13] MEDS: CITALOPRAM 40MG TABLET 40 MG PO (08:14)
[2024-11-13] MEDS: DAPAGLIFLOZIN PROPANEDIOL 10 MG TABLET 5 MG PO (08:16)
[2024-11-13] MEDS: BUSPIRONE HCL 5 MG TABLET 7.5 MG PO (08:16)
[2024-11-13 10:54] LABS: POC Glucose,Bedside 102 (70-110)
--- NOTE | 2024-11-17 11:50 | SW/DCPLANNER ---
Phoned patient x2. No answer and left message each time with call back number. Lance Menjivar
== END 2024-11-13 13:23 | disposition home or self-care (01) | DRG 190 ==
LOC: UTC 15:26 → ER 15:31 → 2ND 11-12 01:10
PROVIDERS: Physician Assistant; Admitting Provider Internal Medicine Adolescent Medicine; Emergency Provider Emergency Medicine; PCP Nurse Practitioner Family; Visit Provider Internal Medicine Adolescent Medicine
DX: J44.1 Chronic obstructive pulmonary disease with (acute) exacerbation (principal); J96.01 Acute respiratory failure with hypoxia; Z68.43 Body mass index [BMI] 50.0-59.9, adult; E11.9 Type 2 diabetes mellitus without complications; B97.4 Respiratory syncytial virus as the cause of diseases classified elsewhere; J10.1 Influenza due to other identified influenza virus with other respiratory manifestations; E66.01 Morbid (severe) obesity due to excess calories; I10 Essential (primary) hypertension; F17.210 Nicotine dependence, cigarettes, uncomplicated; F41.9 Anxiety disorder, unspecified; Z79.85 Long-term (current) use of injectable non-insulin antidiabetic drugs; Z79.84 Long term (current) use of oral hypoglycemic drugs; Z79.51 Long term (current) use of inhaled steroids
CPT/HCPCS: 36415; 71046; 80053; 82803; 82962; 83036; 83605; 83735; 83880; 84145; 84484; 85025; 85378; 85610; 87633; 93005; 94640; 94760; 94761; 99285; J1650; J1940; J2919; J7620

== ENCOUNTER 2024-11-26 10:20 | Outpatient (CLI) | payer OTHER, SELFPAY ==
--- NOTE | 2024-11-26 10:25 | XR_ITS ---
FINAL REPORT TECHNIQUE: Chest PA & Lateral CLINICAL HISTORY: Acute cough, acute resp failure COMPARISON: 04/25/2024 FINDINGS: 2 views of the chest were performed. The heart size is normal. The mediastinum is within normal limits. There is no acute cardiopulmonary process. There are no pleural effusions. There is no pneumothorax. The bony thorax appears intact. IMPRESSION: No acute cardiopulmonary process. Reviewed, Interpreted and Dictated by Kush Ogden MD Transcribed by Andie Vinson Authenticated and [facility]
== END 2024-11-26 23:59 | disposition home or self-care (01) ==
LOC: RAD 10:20
PROVIDERS: PCP Nurse Practitioner Family; Visit Provider Nurse Practitioner Family
DX: J96.01 Acute respiratory failure with hypoxia (principal); J10.1 Influenza due to other identified influenza virus with other respiratory manifestations; J44.1 Chronic obstructive pulmonary disease with (acute) exacerbation; B33.8 Other specified viral diseases
CPT/HCPCS: 71046

== ENCOUNTER 2024-12-03 12:10 | Outpatient (CLI) | payer OTHER, SELFPAY ==
[2024-12-03 12:36] VITALS: BMI 51.2
[2024-12-03 12:47] LABS: Basophils # 0.1 K/mm3 (0-0.2); Basophils % 0.4 % (0.1-2.0); Eosinophils # 0.2 K/mm3 (0.0-0.4); Eosinophils % 1.4 % (0.1-12.0); Hematocrit 41.4 % (37.0-47.0); Hemoglobin 12.8 g/dL (12.2-16.2); Lymphocytes # 4.7 K/mm3 (0.7-4.5); Lymphocytes % 41.9 % (10-50); Mean Corpuscular HGB Conc 30.9 g/dL (31.8-35.4); Mean Corpuscular Hemoglobin 28.4 pg (27.0-31.2); Mean Platelet Volume 9.7 fl (7.4-10.4); Monocytes # 0.7 K/mm3 (0.1-1.0); Monocytes % 6.5 % (1.7-9.3); Neutrophils # 5.5 K/mm3 (1.8-7.8); Neutrophils % 49.2 % (37.0-80.0); Platelet Count 276 K/mm3 (142-424); Red Cell Distribution Width 14.6 % (11.5-17.5); White Blood Count 11.3 K/mm3 (4.8-10.8)
[2024-12-03 13:01] LABS: Chloride 104 mmol/L (98-107); Potassium 4.2 mmoL/L (3.5-5.1); Sodium 136 mmol/L (136-145)
[2024-12-03 13:04] LABS: Blood Urea Nitrogen 14 mg/dl (7-17); Creatinine Clearance Estimated 84 mL/min (50-200); Estimated Glomerular Filt Rate 104 ml/min (>60); GFR (African American) 126 ML/MIN (>60)
[2024-12-03 13:05] LABS: Anion Gap 10.2 mEq/L (5-15); Calcium 9.5 mg/dl (8.4-10.2); Carbon Dioxide 26 mmol/L (22.0-30.0); Glucose 115 mg/dl (74-100)
== END 2024-12-03 23:59 | disposition home or self-care (01) ==
LOC: PREOP 12:11
PROVIDERS: Nurse Anesthetist, Certified Registered; PCP Nurse Practitioner Family; Visit Provider Obstetrics & Gynecology
DX: N90.89 Other specified noninflammatory disorders of vulva and perineum (principal)
CPT/HCPCS: 80048; 85025

== ENCOUNTER 2024-12-08 06:07 | Day surgery (SDC) | payer OTHER, SELFPAY ==
[2024-12-08] VITALS (9 sets, daily range): BP systolic 115–139; BP diastolic 57–83; PULSE 74–86; RESP 16–18; TEMP 36.4–36.9; O2SAT 92–96; BMI 51.2
[2024-12-08] MEDS: LACTATED RINGERS 1000ML 1,000 ML 25 ML IV (06:27)
[2024-12-08] MEDS: ACETAMINOPHEN 500MG TAB 1000 MG PO (06:27)
[2024-12-08 06:54] LABS: POC Glucose,Bedside 149 (70-110)
[2024-12-08] MEDS: LIDOCAINE 1% W/EPI 1:100,000 20ML VIAL 20 ML (08:05)
--- NOTE | 2024-12-08 08:25 | P.PNANES_ITS ---
[facility] Disclaimer: The information contained in this section may have been updated after the patient was seen, as this information can be updated by other users. Medical History Screening for HIV (human immunodeficiency virus) Encounter for HCV screening test for low risk patient Vulvar lesion Posttraumatic stress disorder Fibromyalgia Type 2 diabetes mellitus RLS (restless legs syndrome) MEGHANN (obstructive sleep apnea) Surgical History History of ovarian cystectomy History of cholecystectomy H/O: Family History Other Diabetes Social History Smoking Status: Current every day smoker tobacco type: cigarettes packs per day: 1 second hand exposure: No alcohol intake: never counseling given: No substance use type: denies use counseling given: No current occupational status: unemployed and other Travel in the last 8 weeks: None adopted: No caregiver/support person: Yes (she has her 2 grand-daughters; they are 11 and 8; her son's daughters) foster care: No household members: family housing: house lives independently: No number of children: 2 number of grandchildren: 8 education level: high school current occupation: she has been a private sitter current occupational exposures/hazards: No caffeine: Yes physical activity: none working smoke detector in home: Yes fire extinguisher in home: Yes carbon monox detector in home: No firearms in home: No do you feel safe at home: Yes victim of physical abuse: No victim of emotional abuse: No victim of sexual abuse: No would you like helpful sources: No Have you lived/traveled outside [place] in past 30 days?: No Contact w/someone who lives/traveled outside US past 30 days?: No Exposure to someone with infectious disease in past 14 days?: No Do you have a fever (greater than 100.4 F or 38 C)?: No Have you tested positive for COVID-19: No Exposed to someone with COVID-19 in past 14 days?: No Do you have a sore throat?: No Do you have a cough?: No Do you have any weakness?: No Do you have any diarrhea?: No Are you experiencing any unusual bleeding?: No Do you have any muscle aches/pain?: No Do you have any abdominal pain?: No Are you experiencing loss of taste or smell?: No [facility] Anesthesia Checklist Patient Identification Patient Identification: Arm Band Structural Data Admitted From: Home Planned Operative Procedure/s: Excision of Vulvar Lesion Consent for Planned Operative Procedure(s) Verified: Yes Verified Documents: Surgical Consent and History and Physical NPO Status Verified Time NPO: 00:00 Additional verifications Anesthesia Reactions: No Hx Blood Transfusions: No Blood Transfusion Reaction: No Airway Assessment Mallampati Score:: Class II C-Spine Mobility Assessed: Yes TMJ Mobility Assessed: Yes Dentition: Good Dentition Neurological Assessment Level of Consciousness: Awake, Alert and Appropriate Anesthesia Plan Anesthesia Risk discussed: Yes Anesthesia Plan: Verified ASA Class: III Anesthesia Type: General
--- NOTE | 2024-12-08 08:26 | P.PNANES_ITS ---
[facility] Anesthesia Record Part I Anesthesia Record I Intake, IV Amount: 500 Hydration: Adequate Estimated blood loss (mL): 1 Urine output (mL): 0 Blood Products used (#): none Blood Pressure: 115/68 SaO2: 93 Pulse Rate: 76 Airway Patency: Patent Respiratory Rate: 16 Temperature: 98.5 F Patient is:: Drowsy and Stable Stable to PACU at:: 08:25
--- NOTE | 2024-12-08 08:32 | P.OP_ITS ---
Date of procedure: 12/08/24 Pre-op Diagnosis:: 1. Vulvar lesion Post-op Diagnosis:: 1. Vulvar lesion Procedure performed:: 1. Excision of vulvar lesion Surgeon:: Keyla Mendiola DO Health Information Manager(s):: N/a SUPERVISOR RECEIVING AND PROCESSING:: Dorian Sprague Anesthesia: GETA Estimated blood loss (mL): 1 Clinical Note:: Ms Giana Saleh is a 54 yo female who presents to [facility] for scheduled procedure. She complains of vulvovaginal cyst. She states this cyst has been present for about 29 years and has gotten bigger over the years. She denies pain. No itching, bleeding or drainage. She is not sexually active. No bladder or bowel complaints. Past medical history significant for DM type 2, RA, Fibromyalgia and HTN. It has been a while since her last pap. P2012. History of x 2. Operative findings:: 1. 3 cm x 2 cm oval mass extending from right side of clitoral chen Operative note:: Risks, benefits and alternatives were discussed with the patient. Risks include but are not limited to bleeding, infection and VTE. Patient voiced understanding and agreed to proceed. She was wheeled back to the operating room and placed under general anesthesia without difficulty. She was placed in dorsal lithotomy position and prepped and draped in the normal sterile fashion. Vulvar mass was grasped with forceps. 0.5 % marcaine was injected around the base of the mass. Mass was placed on traction. Metzenbaum scissors were used to shell out the vulvar mass. Mass was removed from sterile field and will be sent to pathology for review. Skin was reapproximated with 3-0 Vicryl in a running, locking stitch. Hemostasis was noted. Patient was awaken from anesthesia without difficulty. She was transported to recovery room in stable condition. Patient will be discharged home when awake and ambulating. She was given postop instructions as well as instructions to follow-up in the office in 2 weeks. Condition: stable Disposition: same day Specimens:: 1. Vulvar mass Complications:: None
[2024-12-08 08:36] LABS: POC Glucose,Bedside 135 (70-110)
--- NOTE | 2024-12-09 08:24 | EXP.ANES.II ---
[facility] Anesthesia Record Part II Anesthesia Record Part II Discharge Time: 08:55 Destination: Surgical Day Care (OP Surgery) PACU nurse assessment reviewed?: Yes Patient Condition:: Good Anesthesia Complications:: None Swallowing reflex intact?: Yes Airway Patency: Patent Cyanosis?: No Blood Pressure: 125/62 SaO2: 96 Respiratory Rate: 18 Pulse Rate: 81 Temperature: 98.5 F Mental Status: Alert & Oriented Pain level:: 0 Nausea and/or vomitting:: None Intake, IV Amount: 0 Hydration: Adequate
[2024-12-09 08:25] VITALS: BP 125/62; PULSE 81; RESP 18; TEMP 36.9; O2SAT 96
== END 2024-12-08 09:30 | disposition home or self-care (01) ==
PROVIDERS: PCP Nurse Practitioner Family; Visit Provider Obstetrics & Gynecology
PROC: (CPT 11426; principal; 2024-12-08 07:30)
DX: N90.89 Other specified noninflammatory disorders of vulva and perineum (principal)
CPT/HCPCS: 11426; 82962; J1100; J1885; J2250; J2405; J3010; J7120

== ENCOUNTER 2025-02-10 14:39 | Outpatient (CLI) | payer OTHER, SELFPAY ==
[2025-02-10 14:14] LABS: Alanine Aminotransferase 19 U/L (12-78); Albumin Level 4.3 g/dl (3.5-5.0); Albumin/Globulin Ratio 1.4 (1.1-1.8); Alkaline Phosphatase 77 U/L (38-126); Anion Gap 11.3 mEq/L (5-15); Aspartate Amino Transferase 23 U/L (14-36); Bilirubin,Total 0.4 mg/dl (0.2-1.3); Blood Urea Nitrogen 13 mg/dl (7-17); Calcium 9.6 mg/dl (8.4-10.2); Carbon Dioxide 28 mmol/L (22.0-30.0); Chloride 103 mmol/L (98-107); Chol/HDL Ratio 4.1 (1-3.5); Cholesterol 183 mg/dl (140-200); Estimated Glomerular Filt Rate 104 ml/min (>60); GFR (African American) 126 ML/MIN (>60); Globulin 3.1 g/dL (1.3-3.2); Glucose 111 mg/dl (74-100); HDL Cholesterol 45 mg/dl (40-60); Potassium 4.3 mmoL/L (3.5-5.1); Sodium 138 mmol/L (136-145); Total Protein,Serum 7.4 g/dl (6.3-8.2); Triglycerides 143 mg/dl (30-150); VLDL Cholesterol 29 mg/dL (0-40)
[2025-02-10 14:25] LABS: Direct LDL Cholesterol 106.05 mg/dL (100-129)
[2025-02-10 14:31] LABS: 25-OH Vitamin D, Total 37.5 ng/mL (30-100)
[2025-02-10 15:05] LABS: Hemoglobin A1C 6.4 % (4.0-6.0)
== END 2025-02-10 23:59 | disposition home or self-care (01) ==
LOC: LAB.DROPOF 14:40
PROVIDERS: PCP Nurse Practitioner Family; Visit Provider Nurse Practitioner Family
DX: E11.9 Type 2 diabetes mellitus without complications (principal); Z79.84 Long term (current) use of oral hypoglycemic drugs; E55.9 Vitamin D deficiency, unspecified
CPT/HCPCS: 80053; 80061; 82306; 83036

== ENCOUNTER 2025-02-19 16:43 | Outpatient (CLI) | payer OTHER, SELFPAY ==
--- NOTE | 2025-02-19 17:15 | MR_ITS ---
PROCEDURE INFORMATION: Exam: MR Lumbar Spine Without Contrast Exam date and time: 02/19/2025 4:44 PM Age: 54 years old Clinical indication: Low back pain; Lower back pain with pain down posterior aspects of legs. X 6-7 months. No known injury; Additional info: Lbp with radiculopathy to ble TECHNIQUE: Imaging protocol: Magnetic resonance imaging of the lumbar spine without contrast. COMPARISON: [facility] MR thoracic spine wo con 16/10/2018 14:58 FINDINGS: Bones/joints: Unremarkable. No fracture. Normal alignment. Spinal cord: Visualized cord, conus medullaris and cauda equina are unremarkable without compression. L1-L2: No significant disc bulge or herniation. No severe spinal canal stenosis. No significant neural foraminal narrowing. L2-L3: No significant disc bulge or herniation. No severe spinal canal stenosis. No significant neural foraminal narrowing. L3-L4: Disc bulge combining with ligamentum flavum and facet hypertrophy to produce mild spinal stenosis and moderate left subarticular recess stenosis. L4-L5: Central disc protrusion combining with ligamentum flavum and facet hypertrophy to produce moderate to severe spinal stenosis, moderate to severe bilateral subarticular recess stenosis, and bilateral moderate neural foraminal stenosis. Bilateral facet effusions suggestive of osteoarthrosis. L5-S1: Mild disc bulge without spinal stenosis. Soft tissues: Posterior soft tissue edema. IMPRESSION: Degenerative changes at L4-L5 producing moderate to severe spinal stenosis. See details above.
== END 2025-02-19 23:59 | disposition home or self-care (01) ==
LOC: RAD 16:44
PROVIDERS: PCP Nurse Practitioner Family; Visit Provider Nurse Practitioner Family
DX: M48.062 Spinal stenosis, lumbar region with neurogenic claudication (principal); M47.26 Other spondylosis with radiculopathy, lumbar region; M05.79 Rheumatoid arthritis with rheumatoid factor of multiple sites without organ or systems involvement
CPT/HCPCS: 72148